=== PATIENT | male | born 1955 | race Caucasian/White ===

== ENCOUNTER 2020-12-31 17:23 | Observation (INO) | payer OTHER, SELFPAY ==
[2020-12-31 17:24] VITALS: BP 117/82; PULSE 107; RESP 16; TEMP 36.8; O2SAT 96
--- NOTE | 2020-12-31 17:40 | W.ED.GENAD ---
Discharge Plan Disposition Patient Disposition: [facility] INPATIENT Condition: Stable Discharge Details Clinical Impression: Suicidal ideation, Paranoid delusion, Anemia, iron deficiency, Pancytopenia Primary Care Provider: None,None ED Provider: Elena Barraza Medical Decision Making <Elena Barraza DO - Last Filed: 01/03/21 17:48> 12/31/20 1730 -- 65-year-old male with a history of paranoid schizophrenia presents per EMS for suicidal ideation. Per Kathy with mental health, pt is delusional and paranoid and endorsing SI and he is planning on EE due to his delusional behavior. He had a plan to jump out of a window or get shot by police. He was reported to be cooperative per EMS. Upon arrival, he is refusing initially to get into paper clothes but then agreeable. Ping Pong Table Assembler used wand at bedside and pt cleared. He appears disheveled but nontoxic. He is afebrile. Will check screening labs. Patient was also speaking very loudly and argumentative with staff at times. He was given 2 mg of Ativan p.o. which he took willingly. Labs reviewed. Hemoglobin 8.1. MCV low at 65. Remainder of labs unremarkable. UDS negative. Alcohol level minimal at 3. Patient denies any complaints of bleeding including hematuria, epistaxis or rectal bleeding. Guaiac was done at bedside and negative. EE paperwork completed. Patient has been quite talkative while here in the emergency department. He does remain cooperative. Plan is to hold in the ED at this time while awaiting placement. 01/01/21 1230 am -- Case endorsed to Dr. Belle to continue to monitor. 01/02/21 0800 -- Case endorsed to continue to monitor while awaiting placement. Review of iron studies note that patient is iron deficient. He has been started on iron supplements. He has been cooperative overnight and no acute complaints or issues. [facility]40 --patient was sleeping and rolled out of bed onto the floor as his left sided rail was down. He states he hit the back of his head and his ribs but denies any headache or rib pain. He was able to stand up from the floor on his own and ambulate without difficulty. No evidence of head trauma. No midline spinal tenderness. Chest and abdomen normal to inspection without tenderness. Moving all extremities w/o pain or deformity. He remains oriented at baseline and appears in no acute distress. He is requesting back. We will continue to monitor. 1729 --patient remains cooperative today. Received a call today from both care management and mental health that patient was accepted and there is a bed available at the [facility]. Shortly after this, heard from the mental health that the [facility] was unaware that patient was under EE status. The plan was to walk patient off the EE as he is willing to go to the [facility] but now the [facility] states that there is not an available bed for the patient and he will have to wait here till Monday. We will continue to hold on the EE at this time but pt remains willing and voluntarily planning to go to [facility]. 1829 --care huddle --attempted to admit patient to the floor as he has been here approximately 48 hours without incident. Patient is appropriate for floor at this time, unfortunately staffing is inadequate and patient will remain in the ED at this time. Can reassess tomorrow when staffing improved and patient can possibly be admitted to the floor then. 1999 --Case endorsed Dr. Dowd to continue to monitor overnight. 01/03/21 1600 -- staffing now adequate on the floor. Plan is for admission to the floor after 1729. 1739 -- Case discussed with hospitalist who accepts patient for admission. Notified of pancytopenia on labs. Patient remains willing and voluntary to [facility] to the [facility]. Plan is for pt to be walked off the EE tomorrow with possible transfer to the [facility]. They have medicine there who likely can address the pancytopenia or refer for outpatient workup. Patient has remained hemodynamically stable without any acute complaints. He has eaten meals and ambulated in no acute distress. Medical Records Medical records reviewed: Yes I reviewed the patient's medical records. <Douglas Suggs MD - Last Filed: 01/01/21 10:50> pt calm and cooperative here, still having delusions, eating breakfast without complaints. H/H stable hemoglobin this morning 7.8 from 8.1 and is microcytic so is likely iron deficiency, will remain in the ED as is involuntary. pt complaining his legs are restless and would like something for this, will order ativan and given decreased total iron and also increased total iron capacity will start him on iron supplements. <Pankaj Montenegro MD - Last Filed: 01/02/21 00:34> Care signed out by Dr. Suggs with plan to await second certification disposition. Second certification was performed. Patient will remain on EE. Patient was becoming more lively and seemed a bit anxious. I offered him some Ativan orally which he accepted. On reassessment he was calm and feeling better. [facility] [place] at approximately 8 PM and requested transfer. I spoke with the psychiatrist sergeant of corrections. He declined to accept the patient in transfer noting they did not have staffing resources and recommended calling back tomorrow morning. HPI <Elena Barraza DO - Last Filed: 01/03/21 17:48> General Mode of arrival: EMS. Date/Time Provider Initiated Documentation: 12/31/20 17:37. Limitations to Documentation: altered mental status. Information obtained by: patient and EMS. HPI Narrative: Patient is a 65-year-old male with a history of paranoid schizophrenia presents for suicidal ideation and paranoid delusions. For mental health, patient stated that he wanted to jump out of the window or become shot by a copy chaser in an attempt to kill himself. Patient agrees with this statement but did not state this to me. Patient states his name is not Ramone Meeks but will not tell me his name. He will also not seek his name to mental health. Mental health confirms that this is Ramone Meeks. Patient stated that his neighbors were on the other side of the wall and they can hear us. Patient denies any auditory visual hallucinations. He denies any homicidal ideation. He denies any acute medical complaints. He states he has been feeling depressed and requesting mental health several months but has not gotten any help and is not taking any medications. General Stated Complaint: PsychEval CARMITA: 2 Review of Systems <Elena Barraza DO - Last Filed: 01/03/21 17:48> All systems reviewed & are unremarkable except as noted in HPI and below Constitutional Constitutional: Reports as per HPI, Denies chills and Denies fever(s) Eyes Eyes: Denies blurry vision ENT Ears, Nose, Mouth, and Throat: Denies dizziness, Denies sore throat and Denies throat swelling Cardiovascular Cardiovascular: Denies chest pain and Denies dyspnea Respiratory Respiratory: Denies cough and Denies dyspnea Gastrointestinal Gastrointestinal: Denies abdominal pain, Denies diarrhea and Denies vomiting Genitourinary Genitourinary: Denies hematuria and Denies dysuria Musculoskeletal Musculoskeletal: Denies back pain and Denies numbness Integumentary/Breasts Skin/Breast: Denies lesions and Denies rash Neurologic Neurologic: Denies dizziness, Denies localized weakness and Denies numbness Psychiatric Psychiatric: Reports suicidal ideation Allergic/Immunologic Allergic/Immunologic: Denies throat swelling PFSH <Elena Barraza DO - Last Filed: 01/03/21 17:48> Medical History (Updated 01/03/21 @ 17:44 by Elena Barraza DO) Schizophrenia Social History Smoking risk assessment performed?: No Exam <Elena Barraza DO - Last Filed: 01/03/21 17:48> Const General: cooperative and disheveled Orientation: alert and awake HENMT Head: normal to inspection Face and sinus: normal facial exam Eyes General: appearance normal, both eyes and all related structures Pupils: PERRL EOM: EOM intact bilaterally Neck Neck: normal visual inspection and No submandibular swelling Lymphatic: no lymphadenopathy noted Chest Chest: normal inspection of the chest and no tenderness Resp Effort & Inspection: normal respiratory effort and able to speak in complete sentences Auscultation: clear to auscultation bilaterally Cardio Rate: regular rate Rhythm: regular rhythm GI Inspection: normal to inspection Palpation: soft, not firm, not rigid and nontender Auscultation: normal bowel sounds Skin General skin exam: no rashes or lesions noted Neuro General: patient alert, patient awake and patient oriented x3 Cognition: normal cognition Speech: speech normal Motor: muscle tone normal throughout Sensory Exam: no sensory deficits noted Extrem General: normal to inspection, full ROM, capillary refill normal, no calf tenderness bilaterally and no edema Psych Appearance: grossly normal Mental Status: mental status grossly normal Speech and Movement: speech and movement normal Affect: normal affect Course <Elena Barraza DO - Last Filed: 01/03/21 17:48> Vital Signs Vital signs: Vital Signs Temperature 98.2 F 12/31/20 17:24 Pulse 107 H 12/31/20 17:24 Respiratory Rate 16 12/31/20 17:24 Blood Pressure 117/82 12/31/20 17:24 Pulse Oximetry 96 12/31/20 17:24 Temperature 98.2 F 12/31/20 17:24 Temperature Source Oral 12/31/20 17:24 Pulse 107 H 12/31/20 17:24 Respiratory Rate 16 12/31/20 17:24 Respiratory Effort 12/31/20 17:24 Blood Pressure 117/82 12/31/20 17:24 Blood Pressure Position Sitting 12/31/20 17:24 Pulse Oximetry 96 12/31/20 17:24 Oxygen Delivery Method Room Air 12/31/20 17:24 Oxygen Flow Rate 0 12/31/20 17:24 Sign Out <Elena Barraza DO - Last Filed: 01/03/21 17:48> Sign Out Data: Sign Out Comment: Patient is suicidal with a plan. He also has paranoid delusions. He has been cooperative. EE paperwork completed as he has been impulsive at times and not reliable with some parts of history. Holding in the ED while awaiting placement at this time. Last updated by Elena Barraza DO at 12/31/20 23:34 Sign Out Comment: No issues overnight, slept after receiving Zyprexa. Remains on involuntary admission pending placement. Last updated by Ramone Belle MD at 01/01/21 07:32 Sign Out Comment: EE for suicidal and paranoid delusions. Last updated by Douglas Suggs MD at 01/01/21 09:02 Sign Out Comment: Awaiting psych placement EE. Plan to call [facility] in [place] again in the morning. Last updated by Pankaj Montenegro MD at 01/01/21 22:59 Sign Out Comment: Still awaiting placement, hopefully they can take. No issues overnight and slept. Last updated by Ramone Belle MD at 01/02/21 07:47 Sign Out Comment: Patient has continued to be cooperative. [facility] but not until [facility]. Attempted to admit to the floor after the 48-hour qi today but staffing upstairs inadequate. Can consider admission to the floor tomorrow after staffing improved. Last updated by Elena Barraza DO at 01/02/21 20:01 Sign Out Comment: Patient has remained cooperative, expecting [facility]. Patient slept well throughout the night with a small dose of Ativan and Benadryl to help him relax. No issues. Last updated by Idris Dowd DO at 01/03/21 04:20
[2020-12-31 18:31] LABS: *AMPHETAMINES SCREEN URINE Negative (Negative); *BARBITURATES SCREEN URINE Negative (Negative); *BENZODIAZEPINES SCREEN URINE Negative (Negative); Cannabinoids THC Negative (Negative); Cocaine Screen,Urine Negative (Negative); METHADONE URINE SCREEN Negative (Negative); OPIATES URINE SCREEN Negative (Negative); Tricyclic Antidepressants Negative (Negative)
--- NOTE | 2020-12-31 18:33 | CMSP_ITS ---
- If Service Date Differs Date of service: 12/31/20 Time of Service: 18:33 Care Management Safety Plan Status: Involuntary INVOLUNTARY FOR INPATIENT PSYCHIATRIC STABILIZATION. Chief Complaint: Ramone is a 65 year old male who presents in the ED for suicida l ideation, delusions and paranoia. ED staff report Kathy from [facility] is in the process of completing EE paperwork on Ramone, but this has yet to happen. A huddle will be held and the safety plan will be revised as needed once EE paperwork has been completed and filed. Safety plan has been established to meet the needs of the patient, and consideration of the care team, to adhere to patient goals, identify restrictions based on behavioral status, address nutrition, and determine allowed personal belongings, tools for hygiene and personal care. Determine level of activity including ambulation, level of supervision, visitors, and determine privileges based on behaviors and level of engagement by pt. SAFETY PLAN: 1. Will remain on SI/HI precautions. In Paper Clothes 2. Will remain in room under direct supervision of one-on-one staff at all times provided by CPSO, GAUGE CONTROLLER, FACILITY MANAGER HISTOLOGY ludlow machine operator. 3. May have paper cups, plates, finger foods as well as a cardboard spoon with which to eat meals. 4. Follow [facility] Management of the Admitted Behavioral Health Patient policy. 5. Comfort bath system only. 6. No personal belongings 7. Visitors: None at this time. 8. Activities: Coloring book, crayons, and other activities at RN discretion. 9. Bathroom privileges with escort. 10. Phone: Use of hospital phone at RN discretion. 11. Due to INVOLUNTARY status, patient is being held at [facility] by the Department of Mental Health ([facility]) until 2nd certification by [facility] Psychiatrist can be performed (within 24 hours). Staff will provide de-escalation support (CPI) as needed. If patient wishes to leave [facility], staff will contact [facility] Crisis Screener ([phone]) and [employer] ([phone]) as soon as possible. In the event of elopement, notify [facility] Police ([phone]). Patient is currently involuntarily at [facility]. [facility] Frontline Coin Purse Assembler will continue seeking placement. Please contact the Ball Racker [employer] ([phone]) for any needed changes to Safety Plan. Safety plan has been provided to interdepartmental care team. Patient will be transported by advertising teacher at time of discharge.
--- NOTE | 2020-12-31 18:33 | PDOC.CMSAFED ---
- If Service Date Differs Date of service: 12/31/20 Time of Service: 18:33 Care Management Safety Plan Status: Involuntary INVOLUNTARY FOR INPATIENT PSYCHIATRIC STABILIZATION. Chief Complaint: Ramone is a 65 year old male who presents in the ED for suicidal ideation, delusions and paranoia. ED staff report Kathy from [facility] is in the process of completing EE paperwork on Ramone, but this has yet to happen. A huddle will be held and the safety plan will be revised as needed once EE paperwork has been completed and filed. Safety plan has been established to meet the needs of the patient, and consideration of the care team, to adhere to patient goals, identify restrictions based on behavioral status, address nutrition, and determine allowed personal belongings, tools for hygiene and personal care. Determine level of activity including ambulation, level of supervision, visitors, and determine privileges based on behaviors and level of engagement by pt. SAFETY PLAN: 1. Will remain on SI/HI precautions. In Paper Clothes 2. Will remain in room under direct supervision of one-on-one staff at all times provided by CPSO, SHIP WORKER, MANAGER PRODUCT MANAGEMENT manufacturing coordinator. 3. May have paper cups, plates, finger foods as well as a cardboard spoon with which to eat meals. 4. Follow [facility] Management of the Admitted Behavioral Health Patient policy. 5. Comfort bath system only. 6. No personal belongings 7. Visitors: None at this time. 8. Activities: Coloring book, crayons, and other activities at RN discretion. 9. Bathroom privileges with escort. 10. Phone: Use of hospital phone at RN discretion. 11. Due to INVOLUNTARY status, patient is being held at [facility] by the Department of Mental Health ([facility]) until 2nd certification by [facility] Psychiatrist can be performed (within 24 hours). Staff will provide de-escalation support (CPI) as needed. If patient wishes to leave [facility], staff will contact [facility] Crisis Screener ([phone]) and On-Call Road Freight Conductor ([phone]) as soon as possible. In the event of elopement, notify [employer] Police ([phone]). Patient is currently involuntarily at [facility]. [facility] Frontline Clinical Assistant Professor will continue seeking placement. Please contact the Field Nurse Road Freight Conductor ([phone]) for any needed changes to Safety Plan. Safety plan has been provided to interdepartmental care team. Patient will be transported by [facility] at time of discharge.
[2020-12-31 18:42] LABS: Abs Immature Grans 0.01 10^3/uL (0.0-0.06); Absolute Basophil Count 0.03 10^3/uL (0.0-0.2); Absolute Eosinophil Count 0.04 10^3/uL (0.0-0.7); Absolute Lymphocyte Count 0.72 10^3/uL (1.2-3.4); Absolute Monocyte Count 0.56 10^3/uL (0.1-0.8); Absolute Neutrophil Count 3.13 10^3/uL (1.2-6.7); Basophils % 0.7; Eosinophils % 0.9; HCT 31.5 % (40.0-50.0); Immature Grans % 0.2; MCH 16.8 pg (27.0-33.0); MCHC 25.7 % (32.0-36.0); MPV 8.7 fL (8.0-11.0); Monocytes % 12.5; Neutrophils % 69.7; Nucleated RBC 0 %; RBC 4.82 10^6/uL (4.36-5.78); RDW 20.8 % (11.8-14.1); WBC 4.49 10^3/uL (4.4-10.8)
[2020-12-31 18:57] LABS: ALT 36 U/L (16-63); AST 26 U/L (15-37); Albumin 3.8 g/dL (3.4-5.0); Alkaline Phosphatase 134 U/L (46-116); Anion Gap 7.4 mmol/L (3-11); BUN 27 mg/dL (7-18); Bilirubin, Total 0.7 mg/dL (0.2-1.0); CO2 25.6 mmol/L (21.0-32.0); CREATININE 0.8 mg/dL (0.70-1.30); Calcium 8.8 mg/dL (8.5-10.1); Chloride 104 mmol/L (98-107); ETHANOL BLOOD 3.7 mg/dL (<3); Glucose 126 mg/dL (74-106); Potassium 4.2 mmol/L (3.5-5.1); Sodium 137 mmol/L (136-145); Total Protein 8.1 g/dL (6.4-8.2)
[2020-12-31 19:01] LABS: HGB 8.1 g/dL (13.5-17.5)
[2020-12-31 19:02] LABS: MCV 65.4 fL (80-95)
[2020-12-31 19:08] LABS: Anisocytosis 2+; Diff Comment RBC Morph Reviewed; Hypochromasia 2+; Microcytosis 2+; Platelet Count 136 10^3/uL (130-400); Polychromasia Present
[2020-12-31] MEDS: LORazepam 1 MG TAB 2 MG PO (19:52)
--- NOTE | 2020-12-31 22:39 | PDOC.MHCN ---
Date of service: 12/31/20 Time of Service: 18:40 Mental Health Crisis Note Presenting Issue How did you arrive at the ED and why did you come: Maya was seen at his apt. Clt asked PD to shot and kill him. Clt appeared position himself as if he was planning on jumping out his window, which was about a 20 ft drop. PD curtailed the individual from acting on this urge. Precipitating Factors The clt was willing to go to the hospital where he was placed on EE status because of suicide ideation. Tristent has also throwing large items out of his apt regardless if there were any passersby thereby jeopardizing others. Disposition BEHAVIOR: Erratic EYE CONTACT: Eye contact good MOOD: Labile AFFECT: Guard at times APPETITE: Good SLEEP(trouble falling/staying asleep: Poor Plan The clt is under EE status. The clt living situation shows severe self-neglect. Clt's actions of asking PD to shot and kill him, will keep him under EE status till his 2nd certification.
[2020-12-31] MEDS: OLANZapine 10 MG TAB PO (23:52)
[2020-12-31] MEDS: LORazepam 1 MG TAB PO (23:52)
[2020-12-31 23:57] LABS: Source Nasal/Nares
[2021-01-01 08:22] VITALS: BP 99/65; PULSE 74; RESP 18; TEMP 36.4; O2SAT 97
[2021-01-01 08:22] LABS: HCT 30.2 % (40.0-50.0); HGB 7.8 g/dL (13.5-17.5); MCH 16.8 pg (27.0-33.0); MCHC 25.8 % (32.0-36.0); MCV 65.2 fL (80-95); MPV 8.3 fL (8.0-11.0); RDW 20.7 % (11.8-14.1); RDW-SD 47.8 fL; WBC 2.52 10^3/uL (4.4-10.8)
[2021-01-01 08:47] LABS: Platelet Count 112 10^3/uL (130-400)
[2021-01-01 08:50] LABS: RBC 4.63 10^6/uL (4.36-5.78)
[2021-01-01 09:45] LABS: Iron 21 ug/dL (65-175); Total Iron Binding Capacity 537 ug/dL (250-450)
[2021-01-01 09:58] LABS: COVID-19 PCR Negative (Negative)
[2021-01-01 10:00] LABS: Ferritin 8 ng/mL (26-388)
--- NOTE | 2021-01-01 10:05 | PDOC.CMSAFED ---
- If Service Date Differs Date of service: 11/01/20 Time of Service: 11:00 Care Management Safety Plan Status: Involuntary - Reason for Wait Reason for Wait: Inpatient Admission INVOLUNTARY FOR INPATIENT PSYCHIATRIC STABILIZATION. Chief Complaint: Ramone is a 65 year old male who presents in the ED for suicidal ideation, delusions and paranoia. ED staff report Kathy from [facility] is in the process of completing EE paperwork on Ramone, but this has yet to happen. A huddle will be held and the safety plan will be revised as needed once EE paperwork has been completed and filed. Safety plan has been established to meet the needs of the patient, and consideration of the care team, to adhere to patient goals, identify restrictions based on behavioral status, address nutrition, and determine allowed personal belongings, tools for hygiene and personal care. Determine level of activity including ambulation, level of supervision, visitors, and determine privileges based on behaviors and level of engagement by pt. SAFETY PLAN: 1. Will remain on SI/HI precautions. In Paper Clothes 2. Will remain in room under direct supervision of one-on-one staff at all times provided by CPSO, HELMET HAT SWEATBAND PUNCHER, SAW OPERATOR magazine worker. 3. May have paper cups, plates, finger foods as well as a cardboard spoon with which to eat meals. 4. Follow [facility] Management of the Admitted Behavioral Health Patient policy. 5. Comfort bath system only. 6. No personal belongings 7. Visitors: None at this time. 8. Activities: Coloring book, crayons, Bible and plastic magnifying glass permitted, other activities at RN discretion. 9. Bathroom privileges with escort. 10. Phone: Use of hospital phone at RN discretion. 11. Due to INVOLUNTARY status, patient is being held at [facility] by the Department of Mental Health ([facility]) until 2nd certification by [facility] Psychiatrist can be performed (within 24 hours). Staff will provide de-escalation support (CPI) as needed. If patient wishes to leave [facility], staff will contact [facility] Crisis Screener ([phone]) and On-Call Client Delivery Manager ([phone]) as soon as possible. In the event of elopement, notify [facility] Police ([phone]). Patient is currently involuntarily at [facility]. [facility] Frontline Bill Adjuster will continue seeking placement. Please contact the Skip Tender Client Delivery Manager ([phone]) for any needed changes to Safety Plan. Safety plan has been provided to interdepartmental care team. Patient will be transported by powder blender at time of discharge.
[2021-01-01] MEDS: LORazepam 1 MG TAB 2 MG PO ×2 (10:55→18:11)
[2021-01-01 15:21] LABS: INR 1.1 (0.9-1.1); PTT Activated 21.4 sec (21.0-27.5); Prothrombin Time 10.8 sec (9.3-11.0)
[2021-01-01 15:47] LABS: FREE T4 0.79 ng/dL (0.76-1.46)
--- NOTE | 2021-01-01 18:48 | PDOC.MHCN_ITS ---
Date of service: 01/01/21 Time of Service: 18:49 Mental Health Crisis Note Presenting Issue How did you arrive at the ED and why did you come: Pt arrived on 12.31.2020 via [facility] ambulance after he was observed throwing items out his window including tools and his guitar and then leaned out his window yelling at police telling them to shoot him. Precipitating Factors Pt would not answer if he was SI or HI when asked by Dr. John. Disposition BEHAVIOR: Pt is quiet when we first entered the room for his 2nd certification and he salutes the computer screen toward the doctor. Pt then states what do you think? He denied that the doctor was giving him any medications lately. Pt stated that his mind hurts. EYE CONTACT: Eye contact varies. MOOD: Mood is inconsistent and labile. AFFECT: Affect is also labile, one minute talking and laughing the next tearful and the next moderately angry. APPETITE: Pt is reported to be eating. SLEEP(trouble falling/staying asleep: Pt is reported to not be sleeping well. Plan Dr. John certified the second certification. As a result of the Pt's recent and continuing behaviors, concerns that he poses a risk to himself as well as others and the Dr. John's observations, he will reaming at [facility] pending admission to a psychiatric facility. He will be assessed twice daily and placement will besought daily. Signature Clinician's Name/Title: Maria Victoria Huynh MS, [facility] Emergency Services Clinician, [facility]
--- NOTE | 2021-01-02 10:09 | NUR.NOTE ---
Nursing Note: 0945: CPSO stated patient fell. In to assess patient with MD Barraza and patient stated he had a cramp on his left side and rolled out of be. Was found on the floor supine and able to get up independently and back into the stretcher. A/O x3 assessment WNL. Did states he hit the back of his head and his left upper lateral thoracic area. Denied LOC, headache or N/V. States to have chronic neck pain that is not worsened after fall. Currently eating breakfast and is joking with staff. Very talkative and interactive. Continue to monitor.
[2021-01-02 10:20] VITALS: BP 117/76; PULSE 85; RESP 20; TEMP 36.7; O2SAT 97
[2021-01-02] MEDS: Ferrous Sulfate 325 MG TAB PO (10:27)
--- NOTE | 2021-01-02 11:13 | CMSP_ITS ---
- If Service Date Differs Date of service: 01/02/21 Time of Service: 11:13 Care Management Safety Plan Status: Involuntary INVOLUNTARY FOR INPATIENT PSYCHIATRIC STABILIZATION. Chief Complaint: Ramone is a 65 year old male who presents in the ED for suicidal ideation, delusions and paranoia. ED staff report Kathy from [facility] is in the process of completing EE paperwork on Ramone, but this has yet to happen. A huddle will be held and the safety plan will be revised as needed once EE paperwork has been completed and filed. Safety plan has been established to meet the needs of the patient, and consideration of the care team, to adhere to patient goals, identify restrictions based on behavioral status, address nutrition, and determine allowed personal belongings, tools for hygiene and personal care. Determine level of activity including ambulation, level of supervision, visitors, and determine privileges based on behaviors and level of engagement by pt. SAFETY PLAN: 1. Will remain on SI/HI precautions. In Paper Clothes 2. Will remain in room under direct supervision of one-on-one staff at all times provided by CPSO, ASSISTANT PROGRAM MANAGER, RN PROGRESSIVE CARE UNIT astronomy instructor. 3. May have paper cups, plates, finger foods as well as plastic fork and spoon, with which to eat meals, supervised by CPSO. Fork and spoon to be removed from room after each meal. 4. Follow [facility] Management of the Admitted Behavioral Health Patient policy. 5. Comfort bath system, may shower if escorted by CPSO and security. 6. No personal belongings 7. Visitors: None at this time. 8. Activities: Coloring book, crayons, Bible and plastic magnifying glass permitted, other activities at RN discretion. 9. Bathroom privileges with escort. 10. Phone: Use of hospital phone at RN discretion. 11. Due to INVOLUNTARY status, patient is being held at [facility] by the Department of Mental Health ([facility]) until 2nd certification by [facility] Psychiatrist can be performed (within 24 hours). Staff will provide de-escalation support (CPI) as needed. If patient wishes to leave [facility], staff will contact [facility] Crisis Screener ([phone]) and On-Call Security Sales Manager ([phone]) as soon as possible. In the event of elopement, notify [facility] Police ([phone]). Patient is currently involuntarily at [facility]. [facility] Frontline Web Services Architect will continue seeking placement. Please contact the Technical Manager Chemical Plant Security Sales Manager ([phone]) for any needed changes to Safety Plan. Safety plan has been provided to interdepartmental care team. Patient will be transported by advertising internship at time of discharge.
[2021-01-02] MEDS: LORazepam 1 MG TAB PO ×2 (12:05→19:35)
[2021-01-02] MEDS: OLANZapine 10 MG TAB PO (12:05)
--- NOTE | 2021-01-02 17:39 | CMPROGNOTE_ITS ---
- If Service Date Differs Date of service: 01/02/21 Time of Service: 17:39 Care Management Progress Note S/O: Ramone had a second certification last night, which was upheld by a psychiatrist at [facility]. [facility]. This morning, CM was contacted by [facility] who stated that the [facility] will not accept him as he is involuntary. [facility] called the [place] to discuss this with their admissions department. [facility] also discussed the plan with Ramone, who is agreeable to [facility] to the [facility]. The [facility] reported that they will accept him, if he is voluntary, but not until Monday. CM discussed this with the provider as well as the RN computer analyst supervisor. He will remain at [facility] until Monday, when [facility] will contact the [facility] to set up transport. CM will continue to follow. A: Ramone is a 65 year old male admitted to [facility] on 12/31/20 with SI, schizophrenia, psychosis. P: Ramone will remain at [facility] on Involuntary hold, determined by [facility]. Once a bed becomes available at an inpatient psychiatric facility, he will be transported by , coordinated by [facility]. [facility] at the [facility] on Monday, per report. CM will continue to support pt and staff.
--- NOTE | 2021-01-02 17:39 | PDOC.ERCMPRO ---
- If Service Date Differs Date of service: 01/02/21 Time of Service: 17:39 Care Management Progress Note S/O: Ramone had a second certification last night, which was upheld by a psychiatrist at [facility]. attempted to have [facility] to the [facility] after the [facility] cert, without success. This morning, CM was contacted by [facility] who stated that the [facility] will not accept him as he is involuntary. [facility] called the [facility] to discuss this with their admissions department. [facility] also discussed the plan with Ramone, who is agreeable to going to the [facility]. The [facility] reported that they will accept him, if he is voluntary, but not until Monday. CM discussed this with the provider as well as the RN small appliance assembly supervisor. He will remain at [facility] until Monday, when [facility] will contact the VA to set up transport. CM will continue to follow. A: Ramone is a 65 year old male admitted to [facility] on 12/31/20 with SI, schizophrenia, psychosis. P: Ramone will remain at [facility] on Involuntary hold, determined by [facility]. Once a bed becomes available at an inpatient psychiatric facility, he will be transported by , coordinated by [facility]. [facility] the [facility] on Monday, per report. CM will continue to support pt and staff.
--- NOTE | 2021-01-02 21:14 | PDOC.MHCN_ITS ---
Date of service: 01/02/21 Time of Service: 19:15 Mental Health Crisis Note Presenting Issue How did you arrive at the ED and why did you come: Client is currently on EE status awaiting placement. Precipitating Factors Client reports no SI or HI. Disposition BEHAVIOR: Client is polite and receptive when speaking with this wirter. EYE CONTACT: Client makes eye contact throughout the assessment. MOOD: Client is tearful throughout the assessment. AFFECT: Clients affect is normal. APPETITE: Client reports that he is eating like a moose SLEEP(trouble falling/staying asleep: Client reports that he is sleeping well. Plan Client will remain on EE status at [facility] until placement is found. Hospitals were called today with no availability. Signature Clinician's Name/Title: Lavinia Lobo [facility] Emergency Clinician
[2021-01-02] MEDS: diphenhydrAMINE 25 MG CAP PO (23:04)
[2021-01-03] MEDS: LORazepam 1 MG TAB PO ×3 (00:39→20:36)
[2021-01-03] MEDS: Ferrous Sulfate 325 MG TAB PO (08:20)
[2021-01-03 08:27] VITALS: BP 97/64; PULSE 86; RESP 18; TEMP 36.7; O2SAT 97
[2021-01-03] MEDS: OLANZapine 10 MG TAB PO (09:08)
--- NOTE | 2021-01-03 15:23 | CMSP_ITS ---
- If Service Date Differs Date of service: 01/03/21 Time of Service: 15:23 Care Management Safety Plan Status: Involuntary INVOLUNTARY FOR INPATIENT PSYCHIATRIC STABILIZATION. Chief Complaint: Ramone is a 65 year old male who presents in the ED for suicidal ideation, delusions and paranoia. ED staff report Kathy from [facility] is in the process of completing EE paperwork on Ramone, but this has yet to happen. A huddle will be held and the safety plan will be revised as needed once EE paperwork has been completed and filed. Safety plan has been established to meet the needs of the patient, and consideration of the care team, to adhere to patient goals, identify restrictions based on behavioral status, address nutrition, and determine allowed personal belongings, tools for hygiene and personal care. Determine level of activity including ambulation, level of supervision, visitors, and determine privileges based on behaviors and level of engagement by pt. SAFETY PLAN: 1. Will remain on SI/HI precautions. In Paper Clothes 2. Will remain in room under direct supervision of one-on-one staff at all times provided by CPSO, HOME HEALTH CARE PROVIDER, SYNCHRONOUS MOTOR ASSEMBLER header set up operator. CPSO to be in the room with Ramone while he is awake on M/S, at RN discretion. 3. May have paper cups, plates, finger foods as well as plastic fork and spoon, with which to eat meals, supervised by CPSO. Fork and spoon to be removed from room after each meal. 4. Follow [facility] Management of the Admitted Behavioral Health Patient policy. 5. Comfort bath system, may shower if escorted by CPSO. 6. No personal belongings 7. Visitors: None at this time. 8. Activities: Coloring book, crayons, Bible and plastic magnifying glass permitted, other activities at RN discretion. 9. Bathroom privileges without limitation on M/S. 10. Phone: Use of hospital phone at RN discretion. 11. Due to INVOLUNTARY status, patient is being held at [facility] by the Department of Mental Health ([facility]) until 2nd certification by [facility] Psychiatrist can be perf ormed (within 24 hours). Staff will provide de-escalation support (CPI) as needed. If patient wishes to leave [facility], staff will contact [facility] Crisis Screener ([phone]) and On-Call Control Clerk Subassembly ([phone]) as soon as possible. In the event of elopement, notify [facility] Police ([phone]). Patient is currently involuntarily at [facility]. [facility] Frontline Quality Checker will continue seeking placement. Please contact the Dispatcher Chief Oil Control Clerk Subassembly ([phone]) for any needed changes to Safety Plan. Safety plan has been provided to interdepartmental care team. Patient will be transported by master deputy sheriff court security at time of discharge.
--- NOTE | 2021-01-03 15:25 | CMPROGNOTE_ITS ---
- If Service Date Differs Date of service: 01/03/21 Time of Service: 15:25 Care Management Progress Note S/O: Ramone was escorted to the shower this afternoon, and smiled and waved at while walking in the halls. Ramone will be moved to the transition area of the M/S floor today, as he has been cooperative in the ED with no code hardeep. Per JONNY Catherine, he has a tentative bed offer at the [facility] for tomorrow, but they will have to call in the morning to verify that admission prior to setting up transport. CM will continue to follow. A: Ramone is a 65 year old male admitted to [facility] on 12/31/20 with SI, schizophrenia, psychosis. P: Ramone will remain at [facility] on Involuntary hold, determined by [facility]. Once a bed becomes available at an inpatient psychiatric facility, he will be transported by , coordinated by [facility]. He may have a bed at the [facility] on Monday, per report. will continue to support pt and staff.
[2021-01-03] MEDS: Ibuprofen 600 MG TAB PO (16:16)
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
[2021-01-03 21:22] VITALS: BP 111/76; PULSE 86; RESP 20; TEMP 36.2; O2SAT 100
[2021-01-03] MEDS: traZODone 50 MG TAB PO (22:31)
[2021-01-03] MEDS: Zolpidem 5 MG TAB PO (23:05)
[2021-01-04 06:39] LABS: Abs Immature Grans 0.01 10^3/uL (0.0-0.06); Absolute Basophil Count 0.02 10^3/uL (0.0-0.2); Absolute Eosinophil Count 0.06 10^3/uL (0.0-0.7); Absolute Lymphocyte Count 1.07 10^3/uL (1.2-3.4); Absolute Monocyte Count 0.49 10^3/uL (0.1-0.8); Absolute Neutrophil Count 1.55 10^3/uL (1.2-6.7); Basophils % 0.6; Eosinophils % 1.9; HGB 7.5 g/dL (13.5-17.5); Immature Grans % 0.3; Lymphocytes % 33.4; MCH 17.1 pg (27.0-33.0); MCHC 25.9 % (32.0-36.0); MCV 66.1 fL (80-95); MPV 8.5 fL (8.0-11.0); Monocytes % 15.3; Neutrophils % 48.5; Nucleated RBC 0 %; Platelet Count 128 10^3/uL (130-400); RBC 4.39 10^6/uL (4.36-5.78); RDW 21.3 % (11.8-14.1); RDW-SD 48.9 fL
[2021-01-04 06:48] LABS: Reticulocyte 2.6 % (0.5-2.4)
[2021-01-04] MEDS: Levothyroxine 25 MCG TAB PO (06:55)
--- NOTE | 2021-01-04 07:14 | PDOC.MHCN_ITS ---
Date of service: 01/03/21 Time of Service: 17:21 Mental Health Crisis Note Presenting Issue How did you arrive at the ED and why did you come: Client is currently on EE status awaiting placement. [facility]. Precipitating Factors Client reports no SI or HI. Disposition BEHAVIOR: Client is receptive when speaking to this automobile and property underwriter. EYE CONTACT: Client makes eye contact throughout the assessment. MOOD: Clients mood is happy. AFFECT: Clients affect is normal APPETITE: Clients reports a good appetite. SLEEP(trouble falling/staying asleep: Client reports good sleep. Plan Client will continue to be on EE status awaiting placement. [facility] will [facility]. Signature Clinician's Name/Title: Lavinia Lobo [facility] Emergency Clinician
[2021-01-04] MEDS: Benztropine 1 MG TAB PO ×2 (09:21→20:58)
[2021-01-04] MEDS: OLANZapine 10 MG TAB PO (09:21)
[2021-01-04] MEDS: Clopidogrel 75 MG TAB PO (09:21)
[2021-01-04] MEDS: Ferrous Sulfate 325 MG TAB PO (09:21)
[2021-01-04 12:18] LABS: Source Nasal/Nares
[2021-01-04 13:03] LABS: COVID-19 PCR Negative (Negative)
[2021-01-04] MEDS: OLANZapine 5 MG TAB PO (13:47)
--- NOTE | 2021-01-04 15:14 | PGE_ITS ---
Date of Service Date of service: 01/04/21 Time of Service: 15:17 Assessment and Plan Assessment and plan (1) Suicidal ideation: Start date: 01/04/21 Start time: 15:29 Status: Acute Assessment and plan: Calm, NO thoughts of SI/HI (2) Anemia, iron deficiency: Start date: 01/04/21 Start time: 15:32 Status: Acute Assessment and plan: He was started on iron in the emergency department. Follow [facility] (3) Paranoid delusion: Status: Acute Assessment and plan: Increase zyprexa up to 15 mg per psychiatry (4) Hypothyroidism: Status: Chronic Assessment and plan: His TSH is elevated with a low free T4. started on a low dose of levothyroxine. above case discussed with Dr. Edmond Subjective Subjective Patient reports: no new complaints Interval history since last seen: No complaints of SI or HI. Would like to take a shower. Spoke with Psychiatry from [place]. Recommends increasing zyprexa to 15 mg. At this time the [place] would like to build a raport with the patient they are working on trying to get the patient in the [facility] psychiatry facility but he will follow daily at this point. Exam Narrative Exam Narrative: He is in no distress. sleeping no thoughts of SI or HI Const Orientation: alert and awake Limitations: no language barrier HENMT Head: normal to inspection Mouth: oral mucosae normal Eyes Sclera: scleral abnormality (Pale bilaterally) Neck Neck: normal visual inspection Thyroid: thyroid normal Lymphatic: no lymphadenopathy noted Resp Effort & Inspection: normal respiratory effort, no nasal flaring and no stridor Auscultation: clear to auscultation bilaterally, no rales and no rhonchi Cardio Rate: regular rate Heart Sounds: S1 normal, S2 normal, no gallops, no murmurs and no rubs GI Inspection: normal to inspection and non-distended Palpation: soft and no hepatosplenomegaly Skin General skin exam: turgor normal, no jaundice and pallor Psych Speech and Movement: not agitated and speech not slurred Attitude: refuses to answer Thought Process: flight of ideas and tangential Objective Last Vital Signs Temp 36.2 C L 01/03/21 21:22 Pulse 86 01/03/21 21:22 Resp 20 01/03/21 21:22 BP 111/76 01/03/21 21:22 Pulse Ox 100 01/03/21 21:22 Laboratory Results - last 24 hr 12/31/20 01/03/21 01/04/21 18:35 19:02 06:20 WBC 3.20 L RBC 4.39 Hgb 7.5 L Hct 29.0 L MCV 66.1 L MCH 17.1 L MCHC 25.9 L RDW 21.3 H Plt Count 128 L MPV 8.5 Reticulocyte % (Auto) Immature Gran % 0.3 Neutrophils % 48.5 Lymphocytes % 33.4 Monocytes % 15.3 Eosinophils % 1.9 Basophils % 0.6 Nucleated RBC % 0 Absolute Neutrophils 1.55 Absolute Lymphocytes 1.07 L Absolute Monocytes 0.49 Absolute Eosinophils 0.06 Absolute Basophils 0.02 COVID-19 Source SARS-CoV-2 (PCR) Cancelled Nasopharyn COVID-19 PCR Cancelled Path Cons Comment See comment Ref Test Perform Site Cancelled 01/04/21 01/04/21 06:20 12:12 WBC RBC Hgb Hct MCV MCH MCHC RDW Plt Count MPV Reticulocyte % (Auto) 2.6 H Immature Gran % Neutrophils % Lymphocytes % Monocytes % Eosinophils % Basophils % Nucleated RBC % Absolute Neutrophils Absolute Lymphocytes Absolute Monocytes Absolute Eosinophils Absolute Basophils COVID-19 Source Nasal/nares SARS-CoV-2 (PCR) Negative Nasopharyn COVID-19 PCR Path Cons Comment Ref Test Perform Site
[2021-01-04 15:49] VITALS: BP 105/74; PULSE 104; RESP 17; TEMP 37.3; O2SAT 98
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
--- NOTE | 2021-01-04 17:03 | CMSP_ITS ---
"- If Service Date Differs Date of service: 01/04/21 Time of Service: 17:03 Care Management Safety Plan Status: Involuntary INVOLUNTARY FOR INPATIENT PSYCHIATRIC STABILIZATION. Safety plan has been established to meet the needs of the patient, and consideration of the care team, to adhere to patient goals, identify restrictions based on behavioral status, address nutrition, and determine allowed personal belongings, tools for hygiene and personal care. Determine level of activity including ambulation, level of supervision, visitors, and determine privileges based on behaviors and level of engagement by pt. SAFETY PLAN: 1. Will remain on SI/HI precautions. In Paper Clothes 2. Will remain in room under direct supervision of one-on-one staff at all times provided by CPSO, SMOKING PIPE LINER, LOAN EXPEDITOR engraver ornamental design. CPSO to be in the room with Ramone while he is awake on M/S, at RN discretion. 3. May have paper cups, plates, finger foods as well as plastic fork and spoon, with which to eat meals, supervised by CPSO. Fork and spoon to be removed from room after each meal. 4. Follow [facility] Management of the Admitted Behavioral Health Patient policy. 5. Comfort bath system, may shower if escorted by CPSO, at RN discretion. 6. No personal belongings 7. Visitors: None at this time. 8. Activities: Coloring book, crayons, Bible and plastic magnifying glass permitted, other activities at RN discretion. 9. Bathroom privileges without limitation on M/S. 10. Phone: Use of hospital phone at RN discretion. 11. Due to INVOLUNTARY status, patient is being held at [facility] by the Department of Mental Health ([facility]). The 2nd certification by [facility] Psychiatrist has occurred and Ramone was found to be a person in need of involuntary treatment. Staff will provide de-escalation support (CPI) as needed. If patient wishes to leave [facility], staff will contact [facility] Crisis Screener ([phone]) and On-Call Liquid Loader ([phone]) as soon as possible. In the event of elopement, notify [place] [employer] [facility] Police ([phone]). Patient is currently involuntarily at [facility]. [facility] Frontline Planning Director will continue seeking placement. Please contact the Statement Clerks Supervisor Liquid Loader ([phone]) for any needed changes to Safety Plan. Safety plan has been provided to interdepartmental care team. Patient will be transported by [facility] at time of discharge."
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
[2021-01-04] MEDS: Enoxaparin 40 MG/0.4 ML SYR SC (18:28)
[2021-01-04] MEDS: traZODone 50 MG TAB PO (20:58)
[2021-01-04] MEDS: Acetaminophen 325 MG TAB 650 MG PO (21:40)
[2021-01-04 22:45] VITALS: BP 103/64; PULSE 95; RESP 24; TEMP 36.7; O2SAT 98
[2021-01-04] MEDS: Zolpidem 5 MG TAB PO (22:50)
[2021-01-05 07:50] VITALS: BP 93/64; PULSE 89; RESP 16; TEMP 36.2; O2SAT 99
[2021-01-05] MEDS: Benztropine 1 MG TAB PO ×2 (08:09→20:16)
[2021-01-05] MEDS: Clopidogrel 75 MG TAB PO (08:09)
[2021-01-05] MEDS: OLANZapine 10 MG TAB 15 MG PO (08:09)
[2021-01-05] MEDS: Levothyroxine 25 MCG TAB PO (08:09)
[2021-01-05] MEDS: Ferrous Sulfate 325 MG TAB PO (08:09)
[2021-01-05 08:19] LABS: HCT 29.4 % (40.0-50.0)
--- NOTE | 2021-01-05 08:42 | CMSP_ITS ---
- If Service Date Differs Date of service: 01/05/21 Time of Service: 08:42 Care Management Safety Plan Status: Involuntary INVOLUNTARY FOR INPATIENT PSYCHIATRIC STABILIZATION. Safety plan has been established to meet the needs of the patient, and consideration of the care team, to adhere to patient goals, identify restrictions based on behavioral status, address nutrition, and determine allowed personal belongings, tools for hygiene and personal care. Determine level of activity including ambulation, level of supervision, visitors, and determine privileges based on behaviors and level of engagement by pt. SAFETY PLAN: 1. Will remain on SI/HI precautions. In Paper Clothes 2. Will remain in room under direct supervision of one-on-one staff at all times provided by CPSO, PULPER TENDER, SPEARER licensed embalmer supervisor. CPSO to be in the room with Ramone while he is awake on M/S, at RN discretion. 3. May have paper cups, plates, finger foods as well as plastic fork and spoon, with which to eat meals, supervised by CPSO. Fork and spoon to be removed from room after each meal. 4. Follow [facility] Management of the Admitted Behavioral Health Patient policy. 5. Comfort bath system, may shower if escorted by CPSO, at RN discretion. 6. No personal belongings 7. Visitors: None at this time. 8. Activities: Coloring book, crayons, Bible and plastic magnifying glass permitted, other activities at RN discretion. 9. Bathroom privileges without limitation on M/S. 10. Phone: Use of hospital phone at RN discretion. 11. Due to INVOLUNTARY status, patient is being held at [facility] by the Department of Mental Health ([facility]). The 2nd certification by [facility] Psychiatrist has occurred and Ramone was found to be a person in need of involuntary treatment. Staff will provide de-escalation support (CPI) as needed. If patient wishes to leave [facility], staff will contact [facility] Crisis Screener ([phone]) and On-Call Band Saw Runner ([phone]) as soon as possible. In the event of elopement, notify [place] [employer] ([phone]). Patient is currently involuntarily at [facility]. [facility] Frontline Nurse Private Duty will continue seeking placement. Please contact the Oracle Distribution Consultant Band Saw Runner ([phone]) for any needed changes to Safety Plan. Safety plan has been provided to interdepartmental care team. Patient will be transported by [facility] at time of discharge.
--- NOTE | 2021-01-05 12:30 | RT.EKG_ITS ---
APPROVED REPORT Exam: Resting ECG Reason for Exam: QT Patient Location: I HR:89 bpm ECG Measurements Heart Rate 89 AXIS AZ 144 P 11 QRSd 84 QRS 27 QT 387 T 31 QTc 471 Conclusion Sinus rhythm...normal P axis, V-rate 60- 99
--- NOTE | 2021-01-05 12:37 | W.PM.PROGNOT ---
Date of Service Date of service: 01/05/21 Time of Service: 12:37 Assessment and Plan Assessment and plan (1) Suicidal ideation: Status: Acute Assessment and plan: Calm, No behavioral disturbances pending inpatient psychiatric transfer when bed available. (2) Anemia, iron deficiency: Status: Acute Assessment and plan: started on iron supplementation, H&H stable. stool was negative for occult blood. no further work up or testing needed at this time. (3) Paranoid delusion: Status: Acute Assessment and plan: Increase zyprexa up to 15 mg per psychiatry (4) Hypothyroidism: Status: Chronic Assessment and plan: His TSH is elevated with a low free T4. started on a low dose of levothyroxine. will need tsh check in 6-8 weeks. above case discussed with Dr. Edmond Subjective Subjective Patient reports: no new complaints, tolerating liquids well, tolerating a regular diet, voiding w/o difficulty and afebrile Exam Const Orientation: alert and awake Limitations: no language barrier HENMT Head: normal to inspection Mouth: oral mucosae normal Eyes Sclera: scleral abnormality (Pale bilaterally) Neck Neck: normal visual inspection Thyroid: thyroid normal Lymphatic: no lymphadenopathy noted Resp Effort & Inspection: normal respiratory effort Auscultation: clear to auscultation bilaterally, no rales and no rhonchi Cardio Rate: regular rate Heart Sounds: no murmurs GI Inspection: normal to inspection and non-distended Palpation: soft Skin General skin exam: turgor normal, no jaundice and pallor Psych Speech and Movement: not agitated and speech not slurred Attitude: refuses to answer Thought Process: flight of ideas and tangential Objective Last Vital Signs Temp 36.2 C L 01/05/21 07:50 Pulse 89 01/05/21 07:50 Resp 16 01/05/21 07:50 BP 93/64 L 01/05/21 07:50 Pulse Ox 99 01/05/21 07:50 Laboratory Results - last 24 hr 01/04/21 01/05/21 12:12 08:10 Hgb 8.0 L Hct 29.4 L SARS-CoV-2 (PCR) Negative
[2021-01-05] MEDS: LORazepam 1 MG TAB PO (13:34)
--- NOTE | 2021-01-05 13:39 | NUR.NOTE ---
Nursing Note: patient wanted to have a BM, but was concerned that he did not have a shower to use afterwards. Patient began to get very agitated because there was no shower in his room. ECHOCARDIOGRAPHY TECH and nursing assistant decided it was best to let him shower after his BM to deescalate the situation. Patient is happy with the outcome
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
--- NOTE | 2021-01-05 16:54 | CMPROGNOTE_ITS ---
- If Service Date Differs Date of service: 01/05/21 Time of Service: 16:54 Care Management Progress Note S/O: Ramone is laying in bed watching television when CM comes to meet with him. He is pleasant, polite and easily engages in conversation. He thanks me with tears in his eyes for the care and the food he is receiving at [facility] and asks to shake my hand. Ramone occupies his day with reading the Bible and watching television. Today is Ramone's 5th day at [facility]. CM will continue to follow. A: Ramone is a 65 year old male admitted to [facility] on 12/31/20 with SI, schizophrenia, psychosis. P: Ramone remains at [facility] on Involuntary hold. Referrals are faxed to [facility] and [facility] for review. All other psych hospitals are full. Once a bed becomes available at an inpatient psychiatric facility, he will be transported by , coordinated by [facility]. CM will continue to support patient.
--- NOTE | 2021-01-05 16:54 | PDOC.CMPRO ---
- If Service Date Differs Date of service: 01/05/21 Time of Service: 16:54 Care Management Progress Note S/O: Ramone is laying in bed watching television when CM comes to meet with him. He is pleasant, polite and easily engages in conversation. He thanks me with tears in his eyes for the care and the food he is receiving at [facility] and asks to shake my hand. Ramone occupies his day with reading the Bible and watching television. Today is Ramone's 5th day at [facility]. CM will continue to follow. A: Ramone is a 65 year old male admitted to [facility] on 12/31/20 with SI, schizophrenia, psychosis. P: Ramone remains at [facility] on Involuntary hold. Referrals are faxed to [facility] and [facility] for review. All other psych hospitals are full. Once a bed becomes available at an inpatient psychiatric facility, he will be transported by , coordinated by [facility]. CM will continue to support patient.
[2021-01-05 16:57] VITALS: BP 114/81; PULSE 91; RESP 18; TEMP 36.6; O2SAT 100
[2021-01-05] MEDS: traZODone 50 MG TAB PO (20:33)
[2021-01-05] MEDS: Zolpidem 5 MG TAB PO (21:50)
[2021-01-05] MEDS: Acetaminophen 325 MG TAB 650 MG PO (23:40)
[2021-01-06] MEDS: Levothyroxine 25 MCG TAB PO (06:30)
[2021-01-06 06:34] VITALS: BP 108/75; PULSE 90; RESP 16; TEMP 36.8; O2SAT 99
[2021-01-06] MEDS: Benztropine 1 MG TAB PO (07:59)
[2021-01-06] MEDS: Clopidogrel 75 MG TAB PO (07:59)
[2021-01-06] MEDS: Ferrous Sulfate 325 MG TAB PO (08:00)
[2021-01-06] MEDS: OLANZapine 10 MG TAB 15 MG PO (08:00)
--- NOTE | 2021-01-06 10:07 | NUR.NOTE ---
PT asking to speak with someone by the name of Saad. When I asked who Saad was he said, You know who Saad is. PT is also wondering when they will be here to take him to [place] Nursing Note:
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
--- NOTE | 2021-01-06 11:11 | NUR.NOTE ---
Nurse practitioner in room. Nursing Note:
--- NOTE | 2021-01-06 11:14 | NUR.NOTE ---
PATTERN WORKER aware that PT is a little anxious ever since he found out [facility]. PATTERN WORKER also just left room.Nursing Note:
--- NOTE | 2021-01-06 12:58 | NUR.NOTE ---
PT is getting agitated because The samoan are making my TV screen nothing but static and they're coming through to listen to us. I just want to go outside and get some damn sunshine just like you do. All you guys do is take my blood for DNA testing and leave me here to rot. RN notified. Nursing Note:
[2021-01-06] MEDS: LORazepam 1 MG TAB PO (13:20)
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
--- NOTE | 2021-01-06 13:43 | NUR.NOTE ---
Nursing Note: 01/06/21 10:55 This RN provided a [id number] handoff to Lat[facility] at the [facility] in [place] for this patient. The accepting provider, Dr. Peters, informed this RN of acceptance of patient to facility. This RN answered all questions.
--- NOTE | 2021-01-06 15:08 | CMDISCH_ITS ---
- If Service Date Differs Date of service: 01/06/21 Time of Service: 15:09 Care Management Discharge Reason for Hospitalization: SI Discharge Plan: Ramone was accepted to go to the [facility] for inpatient psychiatric stablization. He will be transported via [facility], coordinated by [facility]. He will follow up with his PCP, community supports, and discharge plan of care. Patient/Family Education Needs: Review discharge instructions regarding activity and medications, discussion of expectations for psychatric care. Services Needed at Discharge: Psychiatric Facility ([facility]), Transportation ([facility] ) - MH Services (Omit if N/A) Current MH Services: MILKING MACHINE TECHNICIAN - Disposition Disposition: Other ([facility]) Transport via of: Concrete Pipe Plant Supervisor ([facility])
--- NOTE | 2021-01-06 15:08 | PDOC.CMDIS ---
- If Service Date Differs Date of service: 01/06/21 Time of Service: 15:09 Care Management Discharge Reason for Hospitalization: SI Discharge Plan: Ramone was accepted to go [place] stablization. He will be transported via [facility], coordinated by [facility]. He will follow up with his PCP, community supports, and discharge plan of care. Patient/Family Education Needs: Review discharge instructions regarding activity and medications, discussion of expectations for psychatric care. Services Needed at Discharge: Psychiatric Facility ([place]), Transportation ([facility] ) - MH Services (Omit if N/A) Current MH Services: HISTORIC SITES SUPERVISOR - Disposition Disposition: Other ([place]) Transport via of: [place] ([facility])
== END 2021-01-06 18:09 | disposition short-term general hospital (02) ==
LOC: ER 01-03 19:56 → MS 01-03 20:06
PROVIDERS: Emergency Medicine; Family Medicine; Nurse Practitioner Family; Admitting Provider Family Medicine; Emergency Provider Physician Assistant; Visit Provider Family Medicine
DX: R45.851 Suicidal ideations (principal); D50.9 Iron deficiency anemia, unspecified; F20.0 Paranoid schizophrenia; E03.9 Hypothyroidism, unspecified; D61.818 Other pancytopenia
CPT/HCPCS: 36415; 80053; 80307; 85027; 87635; 99285; J1650; U0003; 80320; 82728; 83540; 83550; 84439; 84443; 85014; 85018; 85025; 85045; 85610; 85730; 99217; 99219; 99226; G0378

== ENCOUNTER 2021-12-21 17:54 | Inpatient (IN) | payer OTHER, SELFPAY ==
[2021-12-21 17:55] VITALS: PULSE 125; TEMP 37.4; O2SAT 96
[2021-12-21] MEDS: LORazepam 1 MG TAB 2 MG PO (18:48)
[2021-12-21] MEDS: Haloperidol 5 MG TAB PO (18:48)
--- NOTE | 2021-12-21 18:58 | ED.GENADUL_ITS ---
Discharge Plan Disposition Patient Disposition: STILL A PATIENT Condition: Serious Discharge Details Chief Complaint: PsychEval Clinical Impression: Closed right humeral fracture, Psychosis, Cirrhosis, Cholelithiasis Primary Care Provider: None,None ED Provider: Pankaj Montenegro Home Meds and New Rx's Prescriptions: No Action trazodone 50 mg Tablet 50 mg PO DAILY 0RF aspirin 325 mg Tablet 325 mg PO DAILY 0RF haloperidol decanoate [Haldol Decanoate] 100 mg/mL Solution 200 mg IM Q3W 0RF simvastatin 10 mg Tablet 10 mg PO DAILY 0RF clopidogrel [Plavix] 75 mg Tablet 75 mg PO DAILY 0RF benztropine 1 mg Tablet 1 mg PO BID 0RF furosemide 20 mg Tablet 20 mg PO QAM 0RF albuterol 90 mcg/actuation Aerosol 90 mcg INHALATION TID PRN0RF propranolol 20 mg Tablet 20 mg PO DAILY 0RF Medical Decision Making 1899 -- 66-year-old male with history and medical record of anemia, pancytopenia, hypothyroidism, paranoid delusion, here on EE, here with anxiety and agitation, and psychosis, not caring for himself at home, refusing treatment. Patient is tachycardic. He has obvious signs of injury to right shoulder as well as ecchymosis to his abdomen and flank which is concerning for intra-abdominal surgical process including traumatic injury. Patient is refusing IV. He is agreeable to anxiolytic and antipsychotic. I have given him Haldol 5 mg p.o. and Ativan 2 mg p.o. which he is taken voluntarily for his anxiety and psychosis. Plan for IV access and diagnostic work-up when agreeable after treatment of anxiety. -- Patient reassessed and feeling better after Haldol and Ativan. Resting comfortably. He was agreeable to IV and labs. Labs reviewed and nondiagnostic. --CT of the head interpreted by radiology: No acute intracranial abnormality. CT of the cervical spine interpreted by radiology: No acute skeletal pathology. CT of the chest was reviewed and interpreted by radiology: Right humeral neck fracture which may be pathologic in origin. Chronic T3 and T7 vertebral body compression fractures. No evidence of intrathoracic injury. CT of the abdomen and pelvis interpreted by radiology: No abdominal visceral injury. Cirrhosis and portal hypertension noted. Distended gallbladder with wall thickening and solitary stone. Correlate with right upper quadrant ultrasound as felt clinically. Patient is not complaining of abdominal pain but has unreliable history and exam. He has no leukocytosis. Total bilirubin is 1.3 otherwise unremarkable LFTs. Plan to reassess in a.m. for potential need for ultrasound. I called and spoke with Dr. Manjarrez, on-call orthopedic, he reviewed CT and requested x-ray be performed. He will evaluate the patient in the a.m. -- Of note, home medication reconciliation could not be performed. Report from crisis screener notes that patient has not been taking medication as prescribed. Medication will need to be confirmed with pharmacy in the a.m. HPI General Mode of arrival: EMS . Date/Time Provider Initiated Documentation: 12/21/21 18:00 . Limitations to Documentation: altered mental status . Information obtained by: patient . HPI Narrative: 66-year-old male with history of schizoaffective disorder here on EE with concern for acute acute psychosis, noncompliant with his medication and not caring for himself at home. But he is continuing services crisis screener notes that patient was living in trash filled environment. Patient has no complaint. Related Data Home Medications Medication Instructions Recorded Confirmed albuterol 90 mcg/actuation aerosol 90 mcg INHALATION TID PRN 01/03/21 01/03/21 inhaler aspirin 325 mg tablet 325 mg PO DAILY 01/03/21 01/03/21 benztropine 1 mg tablet 1 mg PO BID 01/03/21 01/03/21 clopidogrel 75 mg tablet (Plavix) 75 mg PO DAILY 01/03/21 01/03/21 furosemide 20 mg tablet 20 mg PO QAM 01/03/21 01/03/21 haloperidol decanoate 100 mg/mL 200 mg IM Q3W 01/03/21 01/03/21 intramuscular solution (Haldol Decanoate) propranolol 20 mg tablet 20 mg PO DAILY 01/03/21 01/03/21 simvastatin 10 mg tablet 10 mg PO DAILY 01/03/21 01/03/21 trazodone 50 mg tablet 50 mg PO DAILY 01/03/21 01/03/21 Allergies Allergy/AdvReac Type Severity Reaction Status Date / Time No Known Allergies Allergy Unverified 01/03/21 21:24 General Stated Complaint: PsychEval CARMITA: 2 Review of Systems Unobtainable due to mental status PFSH All Active Problems (Updated 12/21/21 @ 23:11 by Pankaj Montenegro MD) Suicidal ideation (Acute) Paranoid delusion (Acute) Anemia, iron deficiency (Acute) Pancytopenia (Acute) Hypothyroidism (Chronic) Closed right humeral fracture (Acute) Psychosis (Acute) Cirrhosis (Acute) Cholelithiasis (Acute) Medical History Anemia Schizophrenia Social History Smoking/Tobacco Use Status: Former Tobacco Use Smoking risk assessment performed?: Yes Alcohol Intake: former Drug use: Never Substance use type: former substance user Do you feel safe at home: Yes Do you feel safe in your relationship?: Yes Exam Const General: anxious and disheveled Orientation: alert and awake HENMT Head: normocephalic and atraumatic Mouth: mucous membranes dry Eyes Conjunctivae: normal conjunctivae Sclera: normal sclerae Resp Auscultation: clear to auscultation bilaterally, no rales, no rhonchi and no wheezes Cardio Rate: tachycardic Rhythm: regular rhythm GI Palpation: soft, not firm, no guarding, no masses, not rigid and nontender Skin General skin exam: erythema (rt shoulder) Neuro General: patient alert, patient awake and tone normal Extrem General: pedal edema bilaterally pitting and 1+ Right upper extremity: shoulder/upper arm Details: swelling Location: of the shoulder joint and deformity Location: of the shoulder joint Psych Appearance: disheveled Speech and Movement: speech not clear and pressured speech Affect: animated and anxious affect Attitude: guarded Insight: poor Judgment: poor Course Vital Signs Vital signs: Vital Signs Temperature 37.4 C 12/21/21 17:55 Pulse 125 H 12/21/21 17:55 Pulse Oximetry 96 12/21/21 17:55 Temperature 37.4 C 12/21/21 17:55 Temperature Source Temporal Artery Scan 12/21/21 17:55 Pulse 125 H 12/21/21 17:55 Respiratory Effort Non-Labored 12/21/21 18:05 Pulse Oximetry 96 12/21/21 17:55
[2021-12-21 19:26] LABS: Abs Immature Grans 0.01 10^3/uL (0.0-0.06); Absolute Basophil Count 0.02 10^3/uL (0.0-0.2); Absolute Eosinophil Count 0.03 10^3/uL (0.0-0.7); Absolute Lymphocyte Count 0.64 10^3/uL (1.2-3.4); Absolute Monocyte Count 0.57 10^3/uL (0.1-0.8); Absolute Neutrophil Count 2.72 10^3/uL (1.2-6.7); Basophils % 0.5; Eosinophils % 0.8; HCT 36.7 % (40.0-50.0); HGB 11.6 g/dL (13.5-17.5); Immature Grans % 0.3; MCH 31.4 pg (27.0-33.0); MCHC 31.6 % (32.0-36.0); MCV 100 fL (80-95); MPV 9.9 fL (8.0-11.0); Monocytes % 14.3; Neutrophils % 68.1; Platelet Count 105 10^3/uL (130-400); RBC 3.69 10^6/uL (4.36-5.78); RDW 16.7 % (11.8-14.1); RDW-SD 61.9 fL; WBC 3.99 10^3/uL (4.4-10.8)
[2021-12-21 19:34] LABS: Lipase 125 U/L (73-393)
[2021-12-21 19:38] LABS: Creatine Kinase 301 U/L (39-308)
--- NOTE | 2021-12-21 19:38 | PDOC.MHCN_ITS ---
Date of service: 12/21/21 Time of Service: 19:38 Mental Health Crisis Note Presenting Issue How did you arrive at the ED and why did you come: Pt arrived via [facility] on a mental health warrant executed by this typewriter repairer. Precipitating Factors Pt did not answer if he was SI or HI however, he is clearly medically compromised due to his psychosis and needs treatment. Disposition BEHAVIOR: None compliant, guarded and scared. He also presents as paranoid and tearful when assessed at his home. He would only speak to this clinician through the window and would not come to or open the door. EYE CONTACT: intense and inconsistent. MOOD: Guarded, paranoid, tearful. AFFECT: Congruent with mood. APPETITE: Not assessed but he appears as if he has lost a great deal of weight. SLEEP(trouble falling/staying asleep: Not assessed. Plan Pt will remain at [facility] pending medical clearance. He will be assessed daily if voluntary and twice daily by [facility] if an EE is completed by the attending physician. At this time it is this clinician's professional opinion that the Pt is in need of intense, short term treatment to address his mental health and medical needs until he can safely return to the community. Signature Clinician's Name/Title: Maria Victoria Huynh MS, [facility] Emergency Services Clinician, [facility]
[2021-12-21 19:47] LABS: ALT 41 U/L (16-63); AST 41 U/L (15-37); Alkaline Phosphatase 253 U/L (46-116); Anion Gap 10.3 mmol/L (3-11); BUN 21 mg/dL (7-18); Bilirubin, Total 1.3 mg/dL (0.2-1.0); CO2 28.7 mmol/L (21.0-32.0); CREATININE 0.8 mg/dL (0.70-1.30); Calcium 8.3 mg/dL (8.5-10.1); Chloride 112 mmol/L (98-107); Glucose 85 mg/dL (74-106); Potassium 3.3 mmol/L (3.5-5.1); Sodium 151 mmol/L (136-145); TSH (W/Ref FT4) 4.09 uIU/mL (0.36-3.74)
--- NOTE | 2021-12-21 20:00 | DI.CT_ITS ---
Exam(s) CT CHEST/ABD/PEL W EXAM: CT CHEST/ABD/PEL W CLINICAL HISTORY: trauma, song bose sign, tachycardic. TECHNIQUE: Imaging Protocol: Axial computed tomography images with coronal and sagittal reformatted images were created and reviewed CONTRAST MATERIAL: Intravenous: Omnipaque 350 Contrast volume:100 ml Oral: / no COMPARISON: No exams were available for comparison FINDINGS: CHEST: Tracheobronchial tree: Patent where visualized. Mediastinum and Elizabeth: No dominant adenopathy or fluid collection. Pulmonary parenchyma: Evaluation is somewhat limited due to dependent changes and respiratory motion. Emphysematous changes upper lobes. Pleura: No effusion or pneumothorax. Lymph nodes: Within normal limits. Aorta: Thoracic portion non-dilated. Heart: Normal size. Coronary artery calcifications. Bones: Spine: Lytic lesion in T1. Compression fracture, moderate in T3. Question of abnormal sclero sis. Ingk-rd-oajtxcyl compression fracture T7. Right shoulder: Severely displaced fracture of the surgical neck of the humerus. Multiple small comm inuted fragments. Large amount of abnormal surrounding low density fluid as well as abnormal enhance ment. Underlying mass is suspected. No additional destructive lesions seen in the clavicle or scapu la. ABDOMEN: Liver: Nodular, cirrhotic-appearing liver. Left upper quadrant varices. No measurable mass. Gallbladder and biliary tract: Gallbladder is distended and shows a single stone in the dependent por tion. No definite wall thickening. No biliary dilatation. Pancreas: Normal density, no abnormal calcifications or inflammatory process. Spleen: Enlarged. Kidneys: Normal size, contour and axis. No radiodense stones or obstructive uropathy. No masses seen. Adrenal glands: No masses seen. Aorta: Abdominal portion non-dilated. Atherosclerotic changes. Lymph nodes: Within normal limits. Soft tissues: Mild diffuse body wall edema. PELVIS: Bladder: Symmetric distention, no gross wall thickening. Bowel: No obstruction or bowel wall thickening. Peritoneal cavity: Minimal ascites around the liver. No focal collection or mesenteric inflammatory response. Bones: There are lucencies in the endplates of L3 and L4 and L5, which could be degenerative versus m etastatic lesions. Reproductive organs: Within normal limits. IMPRESSION: 1. Fracture of the proximal right humerus with question of underlying pathologic lesion. There is a large amount of abnormal enhancement of the soft tissues surrounding the fracture, suspicious for mas s. Indeterminate lytic lesions are seen in the spine, which could represent degenerative cysts versu s metastatic lesions. 2. Cirrhotic liver. 3. Cholelithiasis. No definite acute cholecystitis. RADIATION DOSE DELIVERED: 1,042.8mGy.cm Total DLP DATA REPOSITORY: All CT scans at this facility are submitted to the National Radiology Data Registry (NRDR) Dose Index Registry (DIR) with the [employer] (A[employer]). RADIATION OPTIMIZATION: All CT scans at this facility use at least one of these dose optimization te chniques: automated exposure control; mA and/or kV adjustment per patient size (includes targeted exa ms where dose is matched to clinical indication); or iterative reconstruction.
--- NOTE | 2021-12-21 20:00 | DI.CT_ITS ---
Exam(s) CT HEAD CERVICAL SPINE WO EXAM: CT HEAD CERVICAL SPINE WO CLINICAL HISTORY: trauma. TECHNIQUE: Imaging Protocol: Axial computed tomography images with coronal and sagittal reformatted images were created and reviewed COMPARISON: No exams were available for comparison FINDINGS: Head CT Ventricles and Extra axial spaces: Normal in size and morphology for the patient's age. Hemorrhage: None. Cerebral parenchyma: Normal. Midline shift: None. Brainstem/Cerebellum: Normal. Calvarium: Normal. Visualized Paranasal sinuses/Mastoids: Clear. Cervical Spine CT BONES: Vertebral body heights are maintained. Alignment is normal. There is no evidence of acute frac ture. Degenerative disc changes and facet degenerative changes are seen . there is a lytic lesion in T1 wh ich could represent a metastatic lesion versus is benign cystic lesion.. There is a chronic deform ity of the posterior of the spinous process of T1. SOFT TISSUES: No paraspinal hematoma. The airway appears intact. No pneumothorax is seen at the lung apices. IMPRESSION: Head CT: No acute abnormality. C-spine CT: Degenerative changes, no acute abnormality. Lytic lesion T1, benign cyst versus metastasi s. RADIATION DOSE DELIVERED: 1,046.51mGy.cm Total DLP DATA REPOSITORY: All CT scans at this facility are submitted to the National Radiology Data Registry (NRDR) Dose Index Registry (DIR) with the [employer] (ACR). RADIATION OPTIMIZATION: All CT scans at this facility use at least one of these dose optimization te chniques: automated exposure control; mA and/or kV adjustment per patient size (includes targeted exa ms where dose is matched to clinical indication); or iterative reconstruction.
[2021-12-21 20:42] LABS: Acetaminophen < 2 ug/mL (10-30); Salicylate < 2.8 mg/dL (<2.8)
--- NOTE | 2021-12-21 20:47 | DI.VRAD_ITS ---
PROCEDURE INFORMATION: Exam: CT Head Without Contrast Exam date and time: 12/21/2021 8:22 PM Age: 66 years old Clinical indication: Injury or trauma; Other: Unknown trauma; Blunt trauma (contusions or hematomas); Consciousness not specified; Injury date: 12/21/21 TECHNIQUE: Imaging protocol: Computed tomography of the head without contrast. Radiation optimization: All CT scans at this facility use at least one of these dose optimization techniques: automated exposure control; mA and/or kV adjustment per patient size (includes targeted exams where dose is matched to clinical indication); or iterative reconstruction. COMPARISON: No relevant prior studies available. FINDINGS: Brain: Normal. No hemorrhage. Unremarkable white matter. No mass effect. Cerebral ventricles: No ventriculomegaly. Paranasal sinuses: Visualized sinuses are unremarkable. No fluid levels. Mastoid air cells: Visualized mastoid air cells are well aerated. Bones/joints: Unremarkable. No acute fracture. Soft tissues: Unremarkable. IMPRESSION: No acute intracranial abnormality. PROCEDURE INFORMATION: Exam: CT Cervical Spine Without Contrast Exam date and time: 12/21/2021 8:22 PM Age: 66 years old Clinical indication: Injury or trauma; Other: Unknown trauma; Blunt trauma (contusions or hematomas); Consciousness not specified; Injury date: 12/21/21 TECHNIQUE: Imaging protocol: Computed tomography images of the cervical spine without contrast. Radiation optimization: All CT scans at this facility use at least one of these dose optimization techniques: automated exposure control; mA and/or kV adjustment per patient size (includes targeted exams where dose is matched to clinical indication); or iterative reconstruction. COMPARISON: No relevant prior studies available. FINDINGS: Bones/joints: Multilevel degenerative changes of the vertebra are present, as manifested by multilevel anterior osteophytes, endplate sclerosis, and multilevel posterior disc osteophyte complexes. There is no evidence of acutely displaced fractures. There is no evidence of joint dislocation. No aggressive osseous lesions. Discs/Spinal canal/Neural foramina: Mild multilevel bony neural foraminal stenosis. The spinal canal is patent. Lungs: Lung apices are not included in this examination. Vasculature: There is mild atherosclerotic calcification of the carotid arteries. Soft tissues: Unremarkable. IMPRESSION: No acute skeletal pathology. Dictated and Authenticated by: Jose Zelaya MD. Ordering:YOGESH Lira MD
[2021-12-21 20:49] LABS: ETHANOL BLOOD < 3.0 mg/dL (<10)
--- NOTE | 2021-12-21 21:05 | DI.VRAD_ITS ---
PROCEDURE INFORMATION: Exam: CT Chest With Contrast; Diagnostic Exam date and time: 12/21/2021 8:26 PM Age: 66 years old Clinical indication: Injury or trauma; Other: Unknown; Generalized; Blunt trauma (contusions or hematomas); Injury date: 12/21/21; Injury details: Trauma, song bose sign, tachycardic TECHNIQUE: Imaging protocol: Diagnostic computed tomography of the chest with contrast. 3D rendering (Not supervised by radiologist): MIP and/or 3D reconstructed images were created by the technologist. Total images: 2501 Radiation optimization: All CT scans at this facility use at least one of these dose optimization techniques: automated exposure control; mA and/or kV adjustment per patient size (includes targeted exams where dose is matched to clinical indication); or iterative reconstruction. Contrast material: OMNIPAQUE; Contrast volume: 100 ml; Contrast route: INTRAVENOUS (IV); COMPARISON: CT HEAD CERVICAL SPINE WO 12/21/2021 8:22 PM FINDINGS: Lungs: Moderate bilateral upper lobe emphysematous disease. Patchy consolidative changes at the lung bases which may in part be dependent in origin. Otherwise no evidence of parenchymal contusion. No parenchymal laceration. No endobronchial lesion. Pleural spaces: No pneumothorax. No hemothorax. Heart: No pericardial fluid. Mediastinal space: No pneumomediastinum. No hemomediastinum. Lymph nodes: No mediastinal, hilar or axillary adenopathy. Vasculature: Unremarkable. No aortic aneurysm. Intraperitoneal space: (See below). Bones/joints: There is an acute angulated displaced fracture involving the right humeral neck. There is associated lytic change involving the right humeral head and neck. There is a large fluid collection along the anterior aspect of the fracture lined by hypervascularity. There is a significant compression fracture of T3 with endplate sclerosis. There is a moderate compression fracture of T7 with subtle central lytic change. Soft tissues: Extrathoracic soft tissues are unremarkable. IMPRESSION: 1. Right humeral neck fracture which may be pathologic in origin as described above. 2. Chronic T3 and T7 vertebral body compression fractures. 3. No evidence of intrathoracic injury. PROCEDURE INFORMATION: Exam: CT Abdomen And Pelvis With Contrast Exam date and time: 12/21/2021 8:26 PM Age: 66 years old Clinical indication: Injury or trauma; Other: Unknown; Generalized; Blunt trauma (contusions or hematomas); Injury date: 12/21/21; Injury details: Trauma, song bose sign, tachycardic TECHNIQUE: Imaging protocol: Computed tomography of the abdomen and pelvis with contrast. 3D rendering (Not supervised by radiologist): MIP and/or 3D reconstructed images were created by the technologist. Radiation optimization: All CT scans at this facility use at least one of these dose optimization techniques: automated exposure control; mA and/or kV adjustment per patient size (includes targeted exams where dose is matched to clinical indication); or iterative reconstruction. Contrast material: OMNIPAQUE; Contrast volume: 100 ml; Contrast route: INTRAVENOUS (IV); COMPARISON: CT HEAD CERVICAL SPINE WO 12/21/2021 8:22 PM FINDINGS: Lungs: Bilateral dependent change. Liver: Nodular contour to a mildly heterogeneous appearing liver. No focal hepatic mass. No hepatic laceration. Gallbladder and bile ducts: Distended gallbladder with a 5 mm solitary calcified dependent stone. There may be minimal gallbladder wall thickening. No pericholecystic inflammation. Pancreas: No pancreatic laceration. Spleen: Mild splenomegaly. No splenic laceration. Adrenal glands: No adrenal hematoma. Kidneys and ureters: Kidneys homogeneously enhance. Stomach and bowel: Stomach is grossly unremarkable. No small or large bowel dilatation. No definite bowel wall thickening. Appendix: No evidence of appendicitis. Intraperitoneal space: No free intraperitoneal air. No free fluid. Vasculature: There are left upper quadrant varices. Lymph nodes: No significant adenopathy. Urinary bladder: No definite bladder wall thickening. Reproductive: Unremarkable as visualized. Bones/joints: There is a mild compression deformity associated with Schmorl's nodes involving the anterior aspect of the L1 vertebral body. There is degenerative disc disease most notable at L2-L3 and L3-L4. Small lumbar inferior endplate Schmorl's nodes at the L3 and L4 levels. Soft tissues: Extra-abdominal soft tissues are unremarkable. IMPRESSION: 1. No abdominal visceral injury. 2. Cirrhosis and portal hypertension. 3. Distended gallbladder with wall thickening and solitary stone. Correlate with right upper quadrant ultrasound as felt clinically. Dictated and Authenticated by: Saad Philippe MD. Ordering:YOGESH Lira MD
[2021-12-21 22:15] VITALS: PULSE 79; TEMP 36.4; O2SAT 99
--- NOTE | 2021-12-21 22:30 | DI.RAD_ITS ---
Exam(s) XR SHOULDER RT COMPLETE 2+V EXAM: XR SHOULDER RT COMPLETE 2+V CLINICAL HISTORY: pain. TECHNIQUE: 2D digital imaging was performed. 4 views. COMPARISON: No exams were available for comparison FINDINGS: There is a fracture extending mainly transversely through surgical neck of the humerus. There is sev ere displacement and multiple tiny comminuted fragments around the main fracture site. There is subl uxation of the humeral head with respect to the glenoid likely secondary to effusion. There is marke d surrounding soft tissue swelling. The distal clavicle and scapula appear intact. IMPRESSION: Displaced proximal humeral fracture DATA REPOSITORY: RADIATION DOSE DELIVERED:
[2021-12-21 22:34] VITALS: BP 94/70
[2021-12-21 22:34] LABS: Source Nasal/Nares
[2021-12-21 23:06] VITALS: BP 118/84
[2021-12-21 23:06] LABS: Lab Add On Test DONE
[2021-12-21 23:07] LABS: ESR 8 mm/hr (0-20)
--- NOTE | 2021-12-21 23:10 | DI.VRAD_ITS ---
PROCEDURE INFORMATION: Exam: XR Right Shoulder Exam date and time: 12/21/2021 10:46 PM Age: 66 years old Clinical indication: Pain; Shoulder; Right TECHNIQUE: Imaging protocol: XR Right shoulder. Views: 2 or more views. Total images: 4 COMPARISON: CT CHEST/ABD/PEL W 12/21/2021 8:26 PM FINDINGS: Bones/joints: There is a fracture of the right humeral neck. There is comminution with multiple small fracture fragments identified. There is angulation and lateral displacement the major proximal fracture fragment relative to the humeral shaft. There is mild posterior subluxation of the humeral head. There is relative lucency identified involving the base of the humeral head and proximal humeral shaft. The remaining bony structures are intact. Soft tissues: There is subcutaneous edema. IMPRESSION: Displaced angulated right humeral neck fracture. Clinical correlation recommended with regard to history of primary malignancy as findings could be pathologic in etiology. Dictated and Authenticated by: Saad Philippe MD. Ordering:YOGESH Lira MD
[2021-12-21 23:26] LABS: C-Reactive Protein 3.09 mg/dL (0.0-0.3)
[2021-12-21 23:29] LABS: COVID-19 PCR Negative (Negative)
[2021-12-21 23:47] LABS: Bilirubin Negative (Negative); Blood Small (Negative); Clarity Sl Cloudy (Clear); Glucose Negative (Negative); Ketones Trace mg/dL (Negative); Leukocyte Esterase Negative (Negative); Nitrite Positive (Negative); pH 5.5 (5-8)
[2021-12-21 23:51] LABS: *AMPHETAMINES SCREEN URINE Negative (Negative); *BARBITURATES SCREEN URINE Negative (Negative); *BENZODIAZEPINES SCREEN URINE Negative (Negative); Cannabinoids THC Negative (Negative); Cocaine Screen,Urine Negative (Negative); METHADONE URINE SCREEN Negative (Negative); OPIATES URINE SCREEN Negative (Negative)
[2021-12-21 23:52] LABS: Tricyclic Antidepressants Negative (Negative)
[2021-12-21] MEDS: Lactated Ringers 1,000 ML 1000 ML IV (23:55)
[2021-12-22] VITALS (36 sets, daily range): BP systolic 66–127; BP diastolic 42–94; PULSE 66–106; RESP 20–23; TEMP 36–36.7; O2SAT 92–99
[2021-12-22 00:02] LABS: Epithelial Cells Negative HPF (Negative); WBC 0-2 HPF (0-5)
[2021-12-22 00:03] LABS: Bacteria Many HPF (Negative); C & S Indicated? Yes; Casts Negative LPF (Negative); Crystals Few Calcium Oxalate HPF (Negative); Mucus Negative (Negative)
[2021-12-22 00:08] LABS: D-Dimer 3526 ng/mlFEU (<500)
[2021-12-22] MEDS: cefTRIAXone 1 GM/50 ML BAG IVPB (00:57)
--- NOTE | 2021-12-22 01:10 | W.EDPROG ---
Date of service: 12/22/21 Time of Service: 01:11 Medical Decision Making Patient slept a good part of the night. Became a little loud this morning and agitated but not belligerent. Willingly took oral Haldol. Repeat laboratory studies obtained after fluids overnight. Dr. Manjarrez is requesting MRI of the right shoulder. Right upper quadrant ultrasound has also been ordered. Still needs medical clearance as well as mental health eval. [place] psych has also been consulted. Lab Data Lab results reviewed: Yes I reviewed the patient's lab results. Sign Out Sign Out Data: Sign Out Comment: Ortho eval in AM. Mental health eval in am. Patient here on EE. Telepsych consult pending. Reassess abdomen in AM and consider RUQ US. Pharmacy to be contacted in AM for med rec. Home meds should be reinitiated as appropriate. Last updated by Pankaj Montenegro MD at 12/21/21 23:26 Discharge Plan Disposition Patient Disposition: STILL A PATIENT Condition: Serious Discharge Details Clinical Impression: Closed right humeral fracture, Psychosis, Cirrhosis, Cholelithiasis Primary Care Provider: None,None ED Provider: Ramone Belle Home Meds and New Rx's Prescriptions: No Action trazodone 50 mg Tablet 50 mg PO DAILY 0RF aspirin 325 mg Tablet 325 mg PO DAILY 0RF haloperidol decanoate [Haldol Decanoate] 100 mg/mL Solution 200 mg IM Q3W 0RF simvastatin 10 mg Tablet 10 mg PO DAILY 0RF clopidogrel [Plavix] 75 mg Tablet 75 mg PO DAILY 0RF benztropine 1 mg Tablet 1 mg PO BID 0RF furosemide 20 mg Tablet 20 mg PO QAM 0RF albuterol 90 mcg/actuation Aerosol 90 mcg INHALATION TID PRN0RF propranolol 20 mg Tablet 20 mg PO DAILY 0RF
[2021-12-22] MEDS: Lactated Ringers 1,000 ML 150 ML IV ×2 (01:34→08:21)
--- NOTE | 2021-12-22 05:00 | DI.US_ITS ---
Exam(s) US ABDOMEN LIMITED EXAM: US ABDOMEN LIMITED CLINICAL HISTORY: abnormal GB on CT TECHNIQUE: Ultrasound abdomen performed using standard protocol. COMPARISON: CT CT CHEST/ABD/PEL W from 12/21/2021 MR MR UPPER JOINT RT WO from 12/22/2021 FINDINGS: Limited exam was performed due to patient condition. Gallbladder is somewhat distended and shows wal l thickening. There is a stone in the gallbladder neck measuring 9 millimeters. There is a mild yolie unt of pericholecystic fluid. Sonographic Pinedo sign was not elicited. No intrahepatic biliary dil atation. Visualized portions of the liver appear heterogeneous, consistent with Cirrhosis. IMPRESSION: Limited exam. Gallbladder wall thickening and small amount of pericholecystic fluid. Single gallsto ne in the neck. Findings could indicate acute cholecystitis or could be secondary to hypoproteinemia . DATA REPOSITORY:
[2021-12-22] MEDS: Potassium Chloride 20 MEQ TABCR PO (06:28)
[2021-12-22] MEDS: Haloperidol 5 MG TAB PO ×2 (06:28→09:30)
--- NOTE | 2021-12-22 07:00 | DI.MRI_ITS ---
Exam(s) MR UPPER JOINT RT WO EXAM: MR UPPER JOINT RT WO CLINICAL HISTORY: possible pathological fracture R proximal humerus. TECHNIQUE: Multiplanar multisequence MRI was performed. COMPARISON: Plain films of the right shoulder and CT of the chest 21 Dec 2021 FINDINGS: BONES: There is a severely displaced fracture of the proximal humerus, also with angulation. Small c omminuted fragments are noted. There is a large amount of surrounding fluid. There is evidence of b allyson destruction at the fractured surfaces consistent with a pathologic fracture. There is marked ab normal edema surrounding the proximal humerus extending nearly to the skin surface. There is also ma rked edema within multiple muscles. Abnormal marrow signal in visualized portions of humeral shaft. Normal marrow signal in glenoid, acromion and distal clavicle. JOINTS: The acromioclavicular joint is normal. There is subluxation of the humeral head with respect to the glenoid given the large amount of surrounding fluid. TENDONS: Supraspinatus: Question partial tear muscle atrophy. Infraspinatus: No definite tear. Muscle atrophy. Subscapularis: Full-thickness tear. Teres Minor: Unremarkable. Biceps and [place]: Full-thickness tear of the biceps tendon. GLENOID LABRUM: Question labral tear.. IMPRESSION: Pathologic fracture through the proximal humerus with marked displacement and comminution. Large yolie unt of surrounding fluid and infiltrative mass. Evaluation of mass is limited without IV contrast. Full-thickness tears of the subscapularis and biceps tendons. DATA REPOSITORY: CONTRAST MATERIAL: noncontrast
--- NOTE | 2021-12-22 07:12 | OCONE_ITS ---
Date of service: 12/22/21 Time of Service: 07:12 History of Present Illness History of Present Illness Chief Complaint: Right Shoulder Fracture Narrative: Ramone is a 66-year-old male who was brought to the emergency department for an emergency evaluation with significant mental health concerns. During the medical evaluation by Dr. Montenegro there is noted ecchymosis, swelling, and pain about the right shoulder. Given limitations with examination a CT scan of his head, neck, and chest abdomen pelvis was performed. This identified a comminuted fracture about the right proximal humerus with concerns of pathologic etiology. CT scan showed significant peripheral enhancement with vascularity and large soft tissue component which was unclear on origin. There is notable comminution and displacement of the proximal humerus fracture. Additionally, the CT scan showed multiple questionable lesions within the spine as well. I was called in consultation. Ramone unfortunately is unable to give too many details. He greets me as Humberto and states that he is glad to see me again. This is my first interaction with Mr. Meeks. I asked details about the pain and he says he has complete pain in his*body from the waist up but the waist down is okay. He does says that the right arm is difficult to use but he has been able to try to use it for light activity although he does so with limitations in pain. 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 I am unable to confirm that statement. He also does report back pain although is unable to localize any particular area. He denies changes to his bowel or bladder. 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 Consults Consult date: 12/21/21 Requesting physician: Pankaj Montenegro Consult Reason Pathologic right humerus fracture Assessment and Plan Assessment and plan (1) Pathological fracture of humerus: Status: Acute Assessment and plan: This appears to be a pathologic fracture of the right humerus. I am unable to determine exactly what this mass is but my suspicion is that may be a sarcoma given the appearance on the MRI and its proximity and invasion of the subcutaneous tissues anteriorly. This is outside of my specialty scope and does need specialty involvement to determine what it may be and this likely will include some form of biopsy which must be performed at a center which does that and also has orthopedic oncological services. There is no other treatment necessary at this time until there is further work-up done for the fracture itself. He will be limited with what he can do on the right arm. However, he may use it as tolerated. Sling can be utilized for comfort. I would encourage him to use his elbow and his wrist and his hand as much as he can while there will be limited motion at the level of the shoulder. (2) Lytic lesion of bone on x-ray: Status: Acute Assessment and plan: There are multiple areas of lysis and what appear to be some blastic change within the spine. While some appear to be degenerative and could be atypical Schmorl's nodes I am concerned this does represent metastatic disease in the spine. Full spine MRI can be considered to further evaluate these lesions. Once again, the majority of this work-up in process should be completed at a tertiary center with specialist who can better evaluate these images and direct treatment. No change to his amatory status. No precautions necessary. (3) Degenerative disc disease, cervical: Status: Acute Assessment and plan: Severe degenerative change within the cervical spine. Once again, this could be related to pathologic process but is unclear. MRI of the cervical spine could be considered to evaluate for metastatic disease. Review of Systems Unobtainable due to mental condition PFSH All Active Problems (Updated 12/22/21 @ 16:09 by Simon Manjarrez MD) Degenerative disc disease, cervical (Acute) Lytic lesion of bone on x-ray (Acute) Pathological fracture of humerus (Acute) Suicidal ideation (Acute) Paranoid delusion (Acute) Anemia, iron deficiency (Acute) Pancytopenia (Acute) Hypothyroidism (Chronic) Closed right humeral fracture (Acute) Psychosis (Acute) Cirrhosis (Acute) Cholelithiasis (Acute) Acute UTI (Acute) Medical History Anemia Schizophrenia Social History Smoking/Tobacco Use Status: Former Tobacco Use Smoking risk assessment performed?: Yes Alcohol Intake: former Drug use: Never Substance use type: former substance user Do you feel safe at home: Yes Do you feel safe in your relationship?: Yes Exam Narrative Exam Narrative: Ramone is sitting up in the hospital stretcher. He agrees me as Humberto is into the room. He is alert and very talkative. His head is normocephalic and atraumatic. Eyes are anicteric. Neck is supple without significant ly mphadenopathy that I can detect. He reports pain to palpation throughout the entirety of his cervical, thoracic, and lumbar spine. He quickly answers yes to pain although it was difficult to localize this anywhere. No step-off was appreciated. When I went back through the exam he seemed to focus majority of his pain complaints to the thoracic region. No masses or palpable abnormalities about the cervical, thoracic, lumbar spine. He did have some limited neck rotation. Evaluation of the right shoulder shows notable swelling about the proximal arm down into the hand although primarily focused between the shoulder and the elbow. There is redness over the anterior portion of the humerus and the shoulder which has a brawny appearance to it, but not quite peau d'orange. There is ecchymosis seen at the distal aspect of the arm just proximal to the elbow. There is pain to palpation throughout the entirety of the humerus but focus mostly about the proximal aspect of the shoulder. He is using the right hand while I am observing him prior to the examination. I am able to externally rotate about 20 degrees and internally rotate to his belly. I can also forward flex to about 30 degrees. He does say that it hurts but he does not seem to have any objective findings at that time. Elbow range of motion is full as best that can be evaluated in the bed with no significant crepitus or mutations. The proximal aspect of the arm is quite full although it is compressible. There is a firmness to this area especially anteriorly. No crepitus. Palpable radial pulse. Sensation is reported as being intact from C5-T1 although he does report some decrease sensation he is unable to specify. Likewise, he reports tingling in his legs although he is unable to specify location but grossly does respond to stimulation from L3-S1. Strength was not able to be tested proximally about the right arm but distally he had intact strength to wrist extension, wrist flexion, finger abduction, finger flexion, finger extension. Likewise he has 5 out of 5 strength from L3-S1. Results Last Vital Signs Temp 36.4 C 12/21/21 22:15 Pulse 79 12/21/21 22:15 BP 105/74 12/22/21 06:15 Pulse Ox 99 12/21/21 22:15 Labs Result diagrams: 12/21/21 19:10 12/22/21 07:15 Labs: Laboratory Results - last 24 hr 12/21/21 12/21/21 12/21/21 11:21 19:10 19:10 WBC RBC Hgb Hct MCV MCH MCHC RDW Plt Count MPV Immature Gran % Neutrophils % Lymphocytes % Monocytes % Eosinophils % Basophils % Nucleated RBC % Absolute Neutrophils Absolute Lymphocytes Absolute Monocytes Absolute Eosinophils Absolute Basophils ESR D-Dimer 3526 H Sodium 151 H Potassium 3.3 L Chloride 112 H Carbon Dioxide 28.7 Anion Gap 10.3 BUN 21 H Creatinine 0.8 Estimated GFR/1.73 m2 >= 60.00 Glucose 85 Calcium 8.3 L Total Bilirubin 1.3 H AST 41 H ALT 41 Alkaline Phosphatase 253 H Creatine Kinase C-Reactive Protein Total Protein 7.0 Albumin 3.0 L Lipase TSH 4.09 H Free T4 1.00 Urine Color Urine Clarity Urine pH Ur Specific [place] Urine Protein Urine Ketones Urine Blood Urine Nitrite Urine Bilirubin Urine Urobilinogen Ur Leukocyte Esterase Urine RBC Urine WBC Ur Epithelial Cells Urine Crystals Urine Bacteria Urine Casts Urine Mucus Ur Culture Indicated? Urine Glucose Salicylates < 2.8 Urine Opiates Screen Urine Methadone Screen Acetaminophen < 2 Ur Barbiturates Screen Ur Tricyclics Screen Ur Amphetamines Screen U Benzodiazepines Scrn Urine Cocaine Screen Ur THC Screen Ethyl Alcohol < 3.0 COVID-19 Source SARS-CoV-2 (PCR) Add-On Test Request 12/21/21 12/21/21 12/21/21 19:10 19:10 19:10 WBC 3.99 L RBC 3.69 L Hgb 11.6 L Hct 36.7 L MCV 100 H MCH 31.4 MCHC 31.6 L RDW 16.7 H Plt Count 105 L MPV 9.9 Immature Gran % 0.3 Neutrophils % 68.1 Lymphocytes % 16.0 Monocytes % 14.3 Eosinophils % 0.8 Basophils % 0.5 Nucleated RBC % 0.0 Absolute Neutrophils 2.72 Absolute Lymphocytes 0.64 L Absolute Monocytes 0.57 Absolute Eosinophils 0.03 Absolute Basophils 0.02 ESR D-Dimer Sodium Potassium Chloride Carbon Dioxide Anion Gap BUN Creatinine Estimated GFR/1.73 m2 Glucose Calcium Total Bilirubin AST ALT Alkaline Phosphatase Creatine Kinase 301 C-Reactive Protein Total Protein Albumin Lipase 125 TSH Free T4 Urine Color Urine Clarity Urine pH Ur Specific [place] Urine Protein Urine Ketones Urine Blood Urine Nitrite Urine Bilirubin Urine Urobilinogen Ur Leukocyte Esterase Urine RBC Urine WBC Ur Epithelial Cells Urine Crystals Urine Bacteria Urine Casts Urine Mucus Ur Culture Indicated? Urine Glucose Salicylates Urine Opiates Screen Urine Methadone Screen Acetaminophen Ur Barbiturates Screen Ur Tricyclics Screen Ur Amphetamines Screen U Benzodiazepines Scrn Urine Cocaine Screen Ur THC Screen Ethyl Alcohol COVID-19 Source SARS-CoV-2 (PCR) Add-On Test Request 12/21/21 12/21/21 12/21/21 19:10 19:10 22:02 WBC RBC Hgb Hct MCV MCH MCHC RDW Plt Count MPV Immature Gran % Neutrophils % Lymphocytes % Monocytes % Eosinophils % Basophils % Nucleated RBC % Absolute Neutrophils Absolute Lymphocytes Absolute Monocytes Absolute Eosinophils Absolute Basophils ESR 8 D-Dimer Sodium Potassium Chloride Carbon Dioxide Anion Gap BUN Creatinine Estimated GFR/1.73 m2 Glucose Calcium Total Bilirubin AST ALT Alkaline Phosphatase Creatine Kinase C-Reactive Protein 3.09 H Total Protein Albumin Lipase TSH Free T4 Urine Color Urine Clarity Urine pH Ur Specific [place] Urine Protein Urine Ketones Urine Blood Urine Nitrite Urine Bilirubin Urine Urobilinogen Ur Leukocyte Esterase Urine RBC Urine WBC Ur Epithelial Cells Urine Crystals Urine Bacteria Urine Casts Urine Mucus Ur Culture Indicated? Urine Glucose Salicylates Urine Opiates Screen Urine Methadone Screen Acetaminophen Ur Barbiturates Screen Ur Tricyclics Screen Ur Amphetamines Screen U Benzodiazepines Scrn Urine Cocaine Screen Ur THC Screen Ethyl Alcohol COVID-19 Source Nasal/Nares SARS-CoV-2 (PCR) Negative Add-On Test Request 12/21/21 12/21/21 12/21/21 23:02 23:08 23:08 WBC RBC Hgb Hct MCV MCH MCHC RDW Plt Count MPV Immature Gran % Neutrophils % Lymphocytes % Monocytes % Eosinophils % Basophils % Nucleated RBC % Absolute Neutrophils Absolute Lymphocytes Absolute Monocytes Absolute Eosinophils Absolute Basophils ESR D-Dimer Sodium Potassium Chloride Carbon Dioxide Anion Gap BUN Creatinine Estimated GFR/1.73 m2 Glucose Calcium Total Bilirubin AST ALT Alkaline Phosphatase Creatine Kinase C-Reactive Protein Total Protein Albumin Lipase TSH Free T4 Urine Color Yellow Urine Clarity Sl Cloudy Urine pH 5.5 Ur Specific [place] 1.020 Urine Protein 30 H Urine Ketones Trace H Urine Blood Small H Urine Nitrite Positive H Urine Bilirubin Negative Urine Urobilinogen 1.0 H Ur Leukocyte Esterase Negative Urine RBC 3-5 H Urine WBC 0-2 Ur Epithelial Cells Negative Urine Crystals Few Calcium Oxalate Urine Bacteria Many Urine Casts Negative Urine Mucus Negative Ur Culture Indicated? Yes Urine Glucose Negative Salicylates Urine Opiates Screen Negative Urine Methadone Screen Negative Acetaminophen Ur Barbiturates Screen Negative Ur Tricyclics Screen Negative Ur Amphetamines Screen Negative U Benzodiazepines Scrn Negative Urine Cocaine Screen Negative Ur THC Screen Negative Ethyl Alcohol COVID-19 Source SARS-CoV-2 (PCR) Add-On Test Request DONE Imaging Imaging Studies: CT scan of the cervical spine and the chest abdomen and pelvis including the right shoulder was reviewed. This demonstrates a comminuted fracture about the right proximal humerus which appears to be pathologic in nature. There is sig nificant peripheral enhancement throughout this area with small comminuted fragments and what appears to be areas of lysis and absent bone. There is notable displacement anteriorly with some varus angulation of the humeral head. Throughout the spine there are multiple areas of concern. There appears to be a lytic type lesion surrounded by some increasing sclerosis at T1. Additionally at T3 there is a significant compression fracture of greater than 50% with increasing sclerosis of the vertebral body. At T7 once again there is a more moderate appearing compression fracture with some areas of sclerosis and lysis. Each of these vertebral bodies has changes which appear somewhat abnormal if consider just a Schmorl's node or degenerative cyst. In the lumbar spine there does appear to be a more atypical Schmorl's type node at L1. There is some cystic changes within the L4 vertebral body which also has some surrounding areas of sclerosis concerning for may be mixed disease process. There is also compression fracture of about 40% seen at L1 additionally, there is an area of lysis seen within the L5 vertebral body. X-ray of the right shoulder shows a pathologic appearing fracture of the surgical neck region of the humerus with what appears to be some loss of bone with small bony pieces and questionable calcification seen within the soft tissues with notable deformity. MRI of the right shoulder without contrast was also reviewed which shows a complex fracture about the right proximal humerus. There are multiple small fragments seen in the soft tissues. There appears to be a mass and fluid was extends all within the subcutaneous surface anteriorly. Abnormal bone marrow signal seen within the proximal third humeral shaft with some abnormality within the humeral head and humeral shaft region. I am unable to text the true primary area to determine what this may represent. However does appear to be a mixed process shows similarities both of dense muscle tissue as well as fat. There is a completely torn subscapularis tendon, transected biceps tendon, torn suprasp inatus tendon and some mild posterior subluxation of the humeral head.
[2021-12-22] MEDS: LORazepam 1 MG TAB PO (07:29)
[2021-12-22 07:30] LABS: Anion Gap 7.7 mmol/L (3-11); BUN 14 mg/dL (7-18); CO2 29.3 mmol/L (21.0-32.0); CREATININE 0.5 mg/dL (0.70-1.30); Calcium 8.1 mg/dL (8.5-10.1); Chloride 111 mmol/L (98-107); Glucose 70 mg/dL (74-106); Potassium 3.8 mmol/L (3.5-5.1); Sodium 148 mmol/L (136-145)
[2021-12-22] MEDS: LORazepam 1 MG TAB 2 MG PO (09:30)
--- NOTE | 2021-12-22 12:31 | ED.PROG_ITS ---
Date of service: 12/22/21 Time of Service: 12:32 Medical Decision Making 66 yo male signed out to me after he had ct head/cspine/chest/abdomen pelvis and found to have cirrhosis, pathologic fracture of his right humerus, and lytic lesions in the spine. He also had nitrite positive urine. Dr. Manjarrez consulted and recommended sling and further workup for malignancy. Discussed with Dr. Machado who did not feel this was acute cholecystitis with provided history. Pt has minimal tendernesss in the ruq on my exam. He is somnolent but will say 1 to 2 words when painful stimuli is applied, did have medications given orally to assist with MRI. Do not feel he can be medically cleared for psychiatric placement, discussed with Dr. Moran who [facility] is at capacity and can't take any medical transfers currently. Will discuss with [facility] about transfer. [facility] unable to take any transfers currently. His ammonia elevated in the 60s, lactulose orderd. Pt stable, when he does fall asleep his BP does drop below 90 systolic, awakens easily. When asked where he is [place]. Discussed with Dr. Moran who accepts for admission Differential Diagnosis Differential Diagnosis: urosepsis, cirrhosis, cholecystitis, cancer Sign Out Sign Out Data: Sign Out Comment: Ortho eval in AM. Mental health eval in am. Patient here on EE. Telepsych consult pending. Reassess abdomen in AM and consider RUQ US. Pharmacy to be contacted in AM for med rec. Home meds should be reinitiated as appropriate. Last updated by Pankaj Montenegro MD at 12/21/21 23:26 Sign Out Comment: pending psych consult, ortho consult and repeat labs/imaging on EE. Last updated by Ramone Belle MD at 12/22/21 07:44 Discharge Plan Disposition Patient Disposition: [facility] INPATIENT Condition: Serious Discharge Details Clinical Impression: Closed right humeral fracture, Psychosis, Cirrhosis, Cholelithiasis, Acute UTI Primary Care Provider: None,None ED Provider: Douglas Suggs Home Meds and New Rx's Prescriptions: No Action trazodone 50 mg Tablet 50 mg PO DAILY 0RF aspirin 325 mg Tablet 325 mg PO DAILY 0RF haloperidol decanoate [Haldol Decanoate] 100 mg/mL Solution 200 mg IM Q3W 0RF simvastatin 10 mg Tablet 10 mg PO DAILY 0RF clopidogrel [Plavix] 75 mg Tablet 75 mg PO DAILY 0RF benztropine 1 mg Tablet 1 mg PO BID 0RF furosemide 20 mg Tablet 20 mg PO QAM 0RF albuterol 90 mcg/actuation Aerosol 90 mcg INHALATION TID PRN0RF propranolol 20 mg Tablet 20 mg PO DAILY 0RF
[2021-12-22 12:53] LABS: Ammonia 62 umol/L (11-32)
--- NOTE | 2021-12-22 13:30 | CMSP_ITS ---
- If Service Date Differs Date of service: 12/22/21 Time of Service: 13:30 Care Management Safety Plan Status: Involuntary - Reason for Wait Reason for Wait: Medical Clearance INVOLUNTARY FOR INPATIENT PSYCHIATRIC STABILIZATION. Safety plan has been established to meet the needs of the patient, and consideration of the care team, to adhere to patient goals, identify restrictions based on behavioral status, address nutrition, and determine allowed personal belongings, tools for hygiene and personal care. Determine level of activity including ambulation, level of supervision, visitors, and determine privileges based on behaviors and level of engagement by pt. SAFETY PLAN: 1. Will remain on SI/HI precautions. In Paper Clothes 2. Will remain in room under direct supervision of one-on-one staff at all times provided by [employer], TURBINE ATTENDANT, FERTILIZER PROCESSING SUPERVISOR family service counselor. 3. May have paper cups, plates, finger foods as well as a cardboard spoon with which to eat meals. 4. Follow [facility] Management of the Admitted Behavioral Health Patient policy. 5. Comfort bath system only. 6. No personal belongings. 7. Visitors: Per [facility] visitor policy and at RN discretion. 8. Activities: Soft cart items, television and other activities based on behavior and at RN discretion. 9. Bathroom privileges with escort in the ED; bathroom available in room without limitation on M/S. 10. Phone: Limited to legal contacts. 11. Due to INVOLUNTARY status, patient is being held at [facility] by the Department of Mental Health ([facility]) until 2nd certification by [facility] Psychiatrist can be performed (within 24 hours). Staff will provide de-escalation support (CPI) as needed. If patient wishes to leave [facility], staff will contact [facility] Crisis Screener ([phone]) and On-Call Electrical Linesworker ([phone]) as soon as possible. In the event of elopement, notify [place] [employer] ([phone]). Patient is currently involuntarily at [facility]. [facility] Frontline Ship Liner will reassess patient daily and will seek placement once patient is medically cleared. Please contact the Superintendent Terminal Electrical Linesworker ([phone]) for any needed changes to Safety Plan. Safety plan has been provided to interdepartmental care team. Patient will be transported by [employer] at time of discharge.
--- NOTE | 2021-12-22 13:30 | PDOC.CMSAFED ---
- If Service Date Differs Date of service: 12/22/21 Time of Service: 13:30 Care Management Safety Plan Status: Involuntary - Reason for Wait Reason for Wait: Medical Clearance INVOLUNTARY FOR INPATIENT PSYCHIATRIC STABILIZATION. Safety plan has been established to meet the needs of the patient, and consideration of the care team, to adhere to patient goals, identify restrictions based on behavioral status, address nutrition, and determine allowed personal belongings, tools for hygiene and personal care. Determine level of activity including ambulation, level of supervision, visitors, and determine privileges based on behaviors and level of engagement by pt. SAFETY PLAN: 1. Will remain on SI/HI precautions. In Paper Clothes 2. Will remain in room under direct supervision of one-on-one staff at all times provided by [employer]PSO, WATCH DIAL PRINTER, CLINICAL DATA ABSTRACTOR printing press operator. 3. May have paper cups, plates, finger foods as well as a cardboard spoon with which to eat meals. 4. Follow [facility] Management of the Admitted Behavioral Health Patient policy. 5. Comfort bath system only. 6. No personal belongings. 7. Visitors: Per [facility] visitor policy and at RN discretion. 8. Activities: Soft cart items, television and other activities based on behavior and at RN discretion. 9. Bathroom privileges with escort in the ED; bathroom available in room without limitation on M/S. 10. Phone: Limited to legal contacts. 11. Due to INVOLUNTARY status, patient is being held at [facility] by the Department of Mental Health ([facility]) until 2nd certification by [facility] Psychiatrist can be performed (within 24 hours). Staff will provide de-escalation support (CPI) as needed. If patient wishes to leave [facility], staff will contact [facility] Crisis Screener ([phone]) and On-Call Clerical Office Worker ([phone]) as soon as possible. In the event of elopement, notify [place] [employer] ([phone]). Patient is currently involuntarily at [facility]. [facility] Frontline Splicing Machine Operator will reassess patient daily and will seek placement once patient is medically cleared. Please contact the Ticket Printer Clerical Office Worker ([phone]) for any needed changes to Safety Plan. Safety plan has been provided to interdepartmental care team. Patient will be transported by [facility] at time of discharge.
[2021-12-22] MEDS: Lactulose 20 GM/30 ML CUP PO ×2 (13:34→21:59)
--- NOTE | 2021-12-22 14:07 | INITIAL_ITS ---
- If Service Date Differs Date of service: 12/22/21 Time of Service: 14:07 Care Management Initial Assess REASON FOR HOSPITALIZATION:: Hepatic encephalopathy, UTI, pathological R humeral fracture. PAST MEDICAL HISTORY/PAST SURGICAL HISTORY:: All Active Problems: Suicidal ideation (Acute), Paranoid delusion (Acute),. Anemia, iron deficiency (Acute), Pancytopenia (Acute), Hypothyroidism (Chronic), Closed right humeral fracture (Acute), Psychosis (Acute), Cirrhosis (Acute), and Cholelithiasis (Acute). Medical History: Anemia and Schizophrenia. No surgical history noted in the chart. PREVIOUS FUNCTIONAL STATUS/SOCIAL/FAMILY SUPPORTS:: Ramone lives alone in an apartment in [facility]. He receives services through the SENIOR CONSTRUCTION ESTIMATOR Program at [facility]. Ramone is a and receives his medical care through the [place]. He arrives at [facility] on a Warrant for Emergency Examination due to agitation, psychosis, and refusal of treatment. CURRENT FUNCTIONAL STATUS:: Ramone is lying in bed when CM meets with him. He does not answer most questions asked of him or provides answers that are unrelated to the question asked. He appears confused. When asked where he is, he replies he is at home. CM will continue to follow. ADVANCE DIRECTIVES:: None on file. Has patient been provided with info about the portal/API?: No Did the patient sign up for the portal?: No CODE STATUS:: Full Code INSURANCE COVERAGE / FINANCIAL ISSUES:: Medicare and [employer] ([employer]). CURRENT HOME/COMMUNITY SERVICES/EQUIPMENT:: Ramone has the support of the SENIOR CONSTRUCTION ESTIMATOR Program at [facility]. [facility]. POTENTIAL DISCHARGE NEEDS:: Ramone will potentially need a psychiatric hospitalization prior to returning to the community. PATIENT/FAMILY EDUCATION NEEDS:: Review of discharge instructions and expectations. ANTICIPATED BARRIERS TO DISCHARGE:: No barriers anticipated at this time. TRANSPORTATION:: Transport to a psych facility will be via transport team coordinated by [facility]. PLAN:: Ramone will remain at [facility] until he is medically stable, at which time [facility] will resume seeking a psychiatric placement for him. Transport to a psych facility will be via a transport team coordinated by [facility] when ready. CM will continue to support Ramone and any discharge planning needs.
--- NOTE | 2021-12-22 14:27 | NUR.NOTE ---
1259 Per [place] admission, there are no beds available for transfer. Maryana Kelly
[2021-12-22] MEDS: Midodrine 2.5 MG TAB PO ×2 (15:58→19:53)
--- NOTE | 2021-12-22 16:20 | HPE_ITS ---
Date of service: 12/22/21 Time of Service: 16:21 Assessment and Plan Assessment and plan (1) Pathological fracture of humerus: Status: Acute Assessment and plan: Ideally would be evaluated by an oncologic orthopedist. At this point, the patient is EE'ed - and I believe that means that he cannot cross state lines for hospitalization. [facility] does not have capacity to accept patients in transfer. DDx: sarcoma, plasmacytoma,lypmhoma, metastatic disease. Because of co-existence of lytic lesions on spinal imaging, will obtain studies to r/o multiple myeloma, prostate ca. Sling for comfort recommended by orthopedics. (2) Lytic lesion of bone on x-ray: Status: Acute Assessment and plan: As above (3) Acute UTI: Status: Acute Assessment and plan: Due to E. Coli, Present on admission. No evidence of obstructive uropathy or stones on CT. However, does have a distended bladder on CT. It is difficult to assess PVRs by bladder scans in patients with ascites, but we can try. Continue ceftriaxone. Await sensitivities. (4) Hypotension: Status: Acute Assessment and plan: Expected in setting of cirrhosis and asytmptomatic at this time - however, did the patient get dizzy from hypotension and fall at home? Check orthostatics, however, independent of orthostatic results - I think a trial of midodrine is warranted. (5) Hyperammonemia: Status: Acute Assessment and plan: No clinical hepatic encephalopathy by the time that I saw the patient, but he had just had a BM after receiving lactulose earlier. Continue lactulose. Monitor for evidence of hepatic encephalopathy. (6) Psychosis: Status: Acute Assessment and plan: H/o schizophrenia, per prior records. Will treat medical issues that could be confounding the picture and administer zyprexa 15 mg PO QHS. (7) Cirrhosis: Assessment and plan: Chronic, alcoholic. with evidence of portal hypertension, ascites and edema, hyperammonemia, pancytopenia. The patient mentioned a GI bleed in the past. Will avoid IVF now that the BPs have come up. Will clarify the patient's actual medications - [facility] Would ideally be on a beta teddy. 2 gram sodium diet. (8) Pancytopenia: Assessment and plan: Monitor for bleeding. Avoid chemical DVT ppx. (9) Cholelithiasis: Status: Chronic Assessment and plan: No evidence of cholecystitis. No further workup necessary. (10) Dehydration: Status: Acute Assessment and plan: IVF now d/c'ed as the patient is taking good PO and BPs have come up. Encourage PO liquids. (11) Discharge planning issues: Status: Acute Assessment and plan: Full code. Under EE. (12) DVT prophylaxis: Status: Acute Assessment and plan: SCDs. Avoid chemical DVT ppx in this patient who has evidence of cirrhosis and portal hypertension and states has had a GI bleed in the past. History of Present Illness History of Present Illness Chief Complaint: Patient was brought to the ED by ambulance for psychosis Narrative: Mr Meeks is a 66 year old male with PMHx of schizophrenia, as well as h/o alcoholic cirrhosis, pancytopenia, hypothyroidism, who was brought to [facility] ED yesterday by ambulance after a well-visit to his residence, where he had locked himself for an extended period of time, revealed self-neglect and a patient in an acute psychotic state. The patient was EE'ed in the ED. There was evidence of bruising and swelling on his R arm as well as an ecchymosis on his abdomen/back, and imaging was obtained to rule out injury or a surgical process. CT of the abdomen and pelvis revealed cirrhosis, portal hypertension, distended gallbladder with wall thickening, but clinically the patient did not have any RUQ pain, and it was the surgical opinion that these findings were due to cirrhosis/ascites. XR of his R shoulder showed a displaced proximal humeral fx. This fracture looked to be pathologic on CT of the chest. The patient was also noted to have lytic lesions in the spine, suspicious for malignancy/mets. The patient was also found to have a UTI by UA. He was initiated on ceftriaxone. There was no evidence of obstructive uropathy or stones on CT. While in the ED, the patient has been persistently hypotensive to the 80s-90s systolic. Of this, he is asymptomatic He as initiated on IVF. His latest BP is 104/71. His ammonia was elevated in the ED, and he was initiated on lactulose. He was evaluated by psychiatry, who was in agreement with high dose thiamine that was being initiated - due to h/o drinking, although the patient states he had not drunk in 3 months. He was also recommended to be started on zyprexa 15 mg PO qhs, and to be continued on lactulose. Per orthopedics, the patient would benefit from being in a facility with an oncologic orthopedic surgeon for further workup, since he would be unlikely to follow up on his own. Because there are no beds available at the [place], hospitalist admission at our facility was requested until a plan for such follow up can be made. Reviewing his medications, the patient appears to be prescribed aspirin/plavix - I am unclear what the indication is at this time. We are obtaining his medical records from the [place]. Review of Systems Narrative: The patient specifically denies pain anywhere except his B arms and throughout his spine. He endorses feeling short of breath. Denies chest pain. It is difficult to fully assess his ROS due to his actively psychotic state. All systems reviewed & are unremarkable except as noted in HPI and below PFSH All Active Problems (Updated 12/22/21 @ 20:22 by Yue Moran MD) Hypotension (Acute) Dehydration (Acute) Discharge planning issues (Acute) DVT prophylaxis (Acute) Hyperammonemia (Acute) Degenerative disc disease, cervical (Acute) Lytic lesion of bone on x-ray (Acute) Pathological fracture of humerus (Acute) Suicidal ideation (Acute) Paranoid delusion (Acute) Anemia, iron deficiency (Acute) Closed right humeral fracture (Acute) Psychosis (Acute) Cholelithiasis (Chronic) Acute UTI (Acute) Medical History (Updated 12/22/21 @ 20:22 by Yue Moran MD) Anemia Cirrhosis Hypothyroidism Pancytopenia Portal hypertension Schizophrenia Surgical History (Updated 12/22/21 @ 19:59 by Yue Moran MD) Surgical history unknown Family History (Updated 12/22/21 @ 19:59 by Yue Moran MD) Other Family history unobtainable due to patient's condition Social History Smoking/Tobacco Use Status: Former Tobacco Use Smoking risk assessment performed?: Yes Alcohol Intake: former Drug use: Never Substance use type: former substance user Do you feel safe at home: Yes Do you feel safe in your relationship?: Yes Meds Allergies and Home Medications Allergies Allergy/AdvReac Type Severity Reaction Status Date / Time No Known Allergies Allergy Unverified 01/03/21 21:24 Home Medications Medication Instructions Recorded Confirmed Type albuterol 90 mcg/actuation aerosol 90 mcg INHALATION TID PRN 01/03/21 01/03/21 History inhaler aspirin 325 mg tablet 325 mg PO DAILY 01/03/21 01/03/21 History benztropine 1 mg tablet 1 mg PO BID 01/03/21 01/03/21 History clopidogrel 75 mg tablet (Plavix) 75 mg PO DAILY 01/03/21 01/03/21 History furosemide 20 mg tablet 20 mg PO QAM 01/03/21 01/03/21 History haloperidol decanoate 100 mg/mL 200 mg IM Q3W 01/03/21 01/03/21 History intramuscular solution (Haldol Decanoate) propranolol 20 mg tablet 20 mg PO DAILY 01/03/21 01/03/21 History simvastatin 10 mg tablet 10 mg PO DAILY 01/03/21 01/03/21 History trazodone 50 mg tablet 50 mg PO DAILY 01/03/21 01/03/21 History Allergy/Medication Comments:: It is unclear if the patient was actually taking his medications at home. Exam Narrative Exam Narrative: General: Pleasant and cooperative yet psychotic middle-aged male who is A&Ox2 Neurological: A&Ox2, no focal deficits other than ataxic gait, no asterexis Psychiatric: Paranoid, tangential speech, but follows commands and answers simple questions appropriately Skin: Large ecchymosis on RUE (purplish) HEENT: Atraumatic, normocephalic, EOMI, dry MM, clear oropharynx, no submandibular or cervical lymphadenopathy, no goiter or JVD Cardiovascular: RRR, no m/r/g Lungs: CTAB Gastrointestinal: soft, mildly distended with ascites, nontender, + BS Genitourinary: deferred Extremities: +1 BLE edema, symmetric, no c/c. Results Imaging Additional studies: CT chest/abdomen/pelvis 12/21/21: 1.? Fracture of the proximal right humerus with question of underlying pathologic lesion. There is a large amount of abnormal enhancement of the soft tissues surrounding the fracture, suspicious for mass.? Indeterminate lytic lesions are seen in the spine, which could represent degenerative cysts versus metastatic lesions. 2.? Cirrhotic liver. 3.? Cholelithiasis.? No definite acute cholecystitis. CT head/c-spine; Head CT: No acute abnormality. C-spine CT: Degenerative changes, no acute abnormality. Lytic lesion T1, benign cyst versus metastasis. XR R shoulder: Displaced proximal humeral fracture Us abdomen: Limited exam.? Gallbladder wall thickening and small amount of pericholecystic fluid.? Single gallstone in the neck.? Findings could indicate acute cholecystitis or could be secondary to hypoproteinemia. MRI RUE: Pathologic fracture through the proximal humerus with marked displacement and comminution.? Large amount of surrounding fluid and infiltrati ve mass.? Evaluation of mass is limited without IV contrast. Full-thickness tears of the subscapularis and biceps tendons. Labs Result diagrams: 12/21/21 19:10 12/22/21 07:15 Labs: Laboratory Results - last 24 hr 12/21/21 12/21/21 12/21/21 11:21 19:10 19:10 WBC RBC Hgb Hct MCV MCH MCHC RDW Plt Count MPV Immature Gran % Neutrophils % Lymphocytes % Monocytes % Eosinophils % Basophils % Nucleated RBC % Absolute Neutrophils Absolute Lymphocytes Absolute Monocytes Absolute Eosinophils Absolute Basophils ESR D-Dimer 3526 H Sodium 151 H Potassium 3.3 L Chloride 112 H Carbon Dioxide 28.7 Anion Gap 10.3 BUN 21 H Creatinine 0.8 Estimated GFR/1.73 m2 >= 60.00 Glucose 85 Calcium 8.3 L Total Bilirubin 1.3 H AST 41 H ALT 41 Alkaline Phosphatase 253 H Ammonia Creatine Kinase C-Reactive Protein Total Protein 7.0 Albumin 3.0 L Lipase TSH 4.09 H Free T4 1.00 Urine Color Urine Clarity Urine pH Ur Specific [place] Urine Protein Urine Ketones Urine Blood Urine Nitrite Urine Bilirubin Urine Urobilinogen Ur Leukocyte Esterase Urine RBC Urine WBC Ur Epithelial Cells Urine Crystals Urine Bacteria Urine Casts Urine Mucus Ur Culture Indicated? Urine Glucose Salicylates < 2.8 Urine Opiates Screen Urine Methadone Screen Acetaminophen < 2 Ur Barbiturates Screen Ur Tricyclics Screen Ur Amphetamines Screen U Benzodiazepines Scrn Urine Cocaine Screen Ur THC Screen Ethyl Alcohol < 3.0 COVID-19 Source SARS-CoV-2 (PCR) Add-On Test Request 12/21/21 12/21/21 12/21/21 19:10 19:10 19:10 WBC 3.99 L RBC 3.69 L Hgb 11.6 L Hct 36.7 L MCV 100 H MCH 31.4 MCHC 31.6 L RDW 16.7 H Plt Count 105 L MPV 9.9 Immature Gran % 0.3 Neutrophils % 68.1 Lymphocytes % 16.0 Monocytes % 14.3 Eosinophils % 0.8 Basophils % 0.5 Nucleated RBC % 0.0 Absolute Neutrophils 2.72 Absolute Lymphocytes 0.64 L Absolute Monocytes 0.57 Absolute Eosinophils 0.03 Absolute Basophils 0.02 ESR D-Dimer Sodium Potassium Chloride Carbon Dioxide Anion Gap BUN Creatinine Estimated GFR/1.73 m2 Glucose Calcium Total Bilirubin AST ALT Alkaline Phosphatase Ammonia Creatine Kinase 301 C-Reactive Protein Total Protein Albumin Lipase 125 TSH Free T4 Urine Color Urine Clarity Urine pH Ur Specific [place] Urine Protein Urine Ketones Urine Blood Urine Nitrite Urine Bilirubin Urine Urobilinogen Ur Leukocyte Esterase Urine RBC Urine WBC Ur Epithelial Cells Urine Crystals Urine Bacteria Urine Casts Urine Mucus Ur Culture Indicated? Urine Glucose Salicylates Urine Opiates Screen Urine Methadone Screen Acetaminophen Ur Barbiturates Screen Ur Tricyclics Screen Ur Amphetamines Screen U Benzodiazepines Scrn Urine Cocaine Screen Ur THC Screen Ethyl Alcohol COVID-19 Source SARS-CoV-2 (PCR) Add-On Test Request 12/21/21 12/21/21 12/21/21 19:10 19:10 22:02 WBC RBC Hgb Hct MCV MCH MCHC RDW Plt Count MPV Immature Gran % Neutrophils % Lymphocytes % Monocytes % Eosinophils % Basophils % Nucleated RBC % Absolute Neutrophils Absolute Lymphocytes Absolute Monocytes Absolute Eosinophils Absolute Basophils ESR 8 D-Dimer Sodium Potassium Chloride Carbon Dioxide Anion Gap BUN Creatinine Estimated GFR/1.73 m2 Glucose Calcium Total Bilirubin AST ALT Alkaline Phosphatase Ammonia Creatine Kinase C-Reactive Protein 3.09 H Total Protein Albumin Lipase TSH Free T4 Urine Color Urine Clarity Urine pH Ur Specific [place] Urine Protein Urine Ketones Urine Blood Urine Nitrite Urine Bilirubin Urine Urobilinogen Ur Leukocyte Esterase Urine RBC Urine WBC Ur Epithelial Cells Urine Crystals Urine Bacteria Urine Casts Urine Mucus Ur Culture Indicated? Urine Glucose Salicylates Urine Opiates Screen Urine Methadone Screen Acetaminophen Ur Barbiturates Screen Ur Tricyclics Screen Ur Amphetamines Screen U Benzodiazepines Scrn Urine Cocaine Screen Ur THC Screen Ethyl Alcohol COVID-19 Source Nasal/Nares SARS-CoV-2 (PCR) Negative Add-On Test Request 12/21/21 12/21/21 12/21/21 23:02 23:08 23:08 WBC RBC Hgb Hct MCV MCH MCHC RDW Plt Count MPV Immature Gran % Neutrophils % Lymphocytes % Monocytes % Eosinophils % Basophils % Nucleated RBC % Absolute Neutrophils Absolute Lymphocytes Absolute Monocytes Absolute Eosinophils Absolute Basophils ESR D-Dimer Sodium Potassium Chloride Carbon Dioxide Anion Gap BUN Creatinine Estimated GFR/1.73 m2 Glucose Calcium Total Bilirubin AST ALT Alkaline Phosphatase Ammonia Creatine Kinase C-Reactive Protein Total Protein Albumin Lipase TSH Free T4 Urine Color Yellow Urine Clarity Sl Cloudy Urine pH 5.5 Ur Specific [place] 1.020 Urine Protein 30 H Urine Ketones Trace H Urine Blood Small H Urine Nitrite Positive H Urine Bilirubin Negative Urine Urobilinogen 1.0 H Ur Leukocyte Esterase Negative Urine RBC 3-5 H Urine WBC 0-2 Ur Epithelial Cells Negative Urine Crystals Few Calcium Oxalate Urine Bacteria Many Urine Casts Negative Urine Mucus Negative Ur Culture Indicated? Yes Urine Glucose Negative Salicylates Urine Opiates Screen Negative Urine Methadone Screen Negative Acetaminophen Ur Barbiturates Screen Negative Ur Tricyclics Screen Negative Ur Amphetamines Screen Negative U Benzodiazepines Scrn Negative Urine Cocaine Screen Negative Ur THC Screen Negative Ethyl Alcohol COVID-19 Source SARS-CoV-2 (PCR) Add-On Test Request DONE 12/22/21 12/22/21 07:15 12:43 WBC RBC Hgb Hct MCV MCH MCHC RDW Plt Count MPV Immature Gran % Neutrophils % Lymphocytes % Monocytes % Eosinophils % Basophils % Nucleated RBC % Absolute Neutrophils Absolute Lymphocytes Absolute Monocytes Absolute Eosinophils Absolute Basophils ESR D-Dimer Sodium 148 H Potassium 3.8 Chloride 111 H Carbon Dioxide 29.3 Anion Gap 7.7 BUN 14 Creatinine 0.5 L Estimated GFR/1.73 m2 >= 60.00 Glucose 70 L Calcium 8.1 L Total Bilirubin AST ALT Alkaline Phosphatase Ammonia 62 H Creatine Kinase C-Reactive Protein Total Protein Albumin Lipase TSH Free T4 Urine Color Urine Clarity Urine pH Ur Specific [place] Urine Protein Urine Ketones Urine Blood Urine Nitrite Urine Bilirubin Urine Urobilinogen Ur Leukocyte Esterase Urine RBC Urine WBC Ur Epithelial Cells Urine Crystals Urine Bacteria Urine Casts Urine Mucus Ur Culture Indicated? Urine Glucose Salicylates Urine Opiates Screen Urine Methadone Screen Acetaminophen Ur Barbiturates Screen Ur Tricyclics Screen Ur Amphetamines Screen U Benzodiazepines Scrn Urine Cocaine Screen Ur THC Screen Ethyl Alcohol COVID-19 Source SARS-CoV-2 (PCR) Add-On Test Request Last Vital Signs Temp 36.7 C 12/22/21 11:16 Pulse 85 12/22/21 13:39 BP 79/59 L 12/22/21 16:04 Pulse Ox 95 12/22/21 13:40
--- NOTE | 2021-12-22 16:39 | PSYCO_ITS ---
Date of service: 12/22/21 Time of Service: 16:46 History of Present Illness History of Present Illness Chief Complaint: Someone has a grudge against me Narrative: Dr. Otero requested 4 hour telepsych consultation to evaluate altered mental status and recommend management. Seen through telemdicine with patient in [facility] ED and ID confirmed by staff. PAtient speech is rambling and completely incoherent. He is unable to provide any coherent responses to questions. What is noted from ED workup is cirrhosis, elevated ammonia levels. Also noted is an arm fracture and lytic lesions in his spine suggestive of metastatic disease. The remainder of imaging studies were unremarkable. He has a history of olanzapine treatment is past. No other psychistric history is obtainable. Assessment and Plan Assessment and plan (1) Psychosis: Status: Acute Assessment and plan: Acute altered mental status has a number of potential etiologies. The first is acute psychosis due to treatment non-adherence. A second is Wernicke's encephalopathy due to what is assumed to be chronic alcohol abuse. The third may be hepatic encephalopathy due to elevated ammonia. Plan: Restart olanzapine 15 mg HS Continue lactulose for elevated ammonia Thimain supplementation Follow up PRN PFSH All Active Problems (Updated 12/22/21 @ 16:09 by Simon Manjarrez MD) Degenerative disc disease, cervical (Acute) Lytic lesion of bone on x-ray (Acute) Pathological fracture of humerus (Acute) Suicidal ideation (Acute) Paranoid delusion (Acute) Anemia, iron deficiency (Acute) Pancytopenia (Acute) Hypothyroidism (Chronic) Closed right humeral fracture (Acute) Psychosis (Acute) Cirrhosis (Acute) Cholelithiasis (Acute) Acute UTI (Acute) Medical History Anemia Schizophrenia Social History Smoking/Tobacco Use Status: Former Tobacco Use Smoking risk assessment performed?: Yes Alcohol Intake: former Drug use: Never Substance use type: former substance user Do you feel safe at home: Yes Do you feel safe in your relationship?: Yes Exam Narrative Exam Narrative: Dressed in hospital garb. Pleasant and animated. Speech is incoherent and nonsensical. Thought process is disorganized. Attention and concentraion are severely impaired. Insight and judgment are imapired. Results Last Vital Signs Temp 36.7 C 12/22/21 11:16 Pulse 85 12/22/21 13:39 BP 79/59 L 12/22/21 16:04 Pulse Ox 95 12/22/21 13:40 Labs Result diagrams: 12/21/21 19:10 12/22/21 07:15 Labs: Laboratory Results - last 24 hr 12/21/21 12/21/21 12/21/21 11:21 19:10 19:10 WBC RBC Hgb Hct MCV MCH MCHC RDW Plt Count MPV Immature Gran % Neutrophils % Lymphocytes % Monocytes % Eosinophils % Basophils % Nucleated RBC % Absolute Neutrophils Absolute Lymphocytes Absolute Monocytes Absolute Eosinophils Absolute Basophils ESR D-Dimer 3526 H Sodium 151 H Potassium 3.3 L Chloride 112 H Carbon Dioxide 28.7 Anion Gap 10.3 BUN 21 H Creatinine 0.8 Estimated GFR/1.73 m2 >= 60.00 Glucose 85 Calcium 8.3 L Total Bilirubin 1.3 H AST 41 H ALT 41 Alkaline Phosphatase 253 H Ammonia Creatine Kinase C-Reactive Protein Total Protein 7.0 Albumin 3.0 L Lipase TSH 4.09 H Free T4 1.00 Urine Color Urine Clarity Urine pH Ur Specific [place] Urine Protein Urine Ketones Urine Blood Urine Nitrite Urine Bilirubin Urine Urobilinogen Ur Leukocyte Esterase Urine RBC Urine WBC Ur Epithelial Cells Urine Crystals Urine Bacteria Urine Casts Urine Mucus Ur Culture Indicated? Urine Glucose Salicylates < 2.8 Urine Opiates Screen Urine Methadone Screen Acetaminophen < 2 Ur Barbiturates Screen Ur Tricyclics Screen Ur Amphetamines Screen U Benzodiazepines Scrn Urine Cocaine Screen Ur THC Screen Ethyl Alcohol < 3.0 COVID-19 Source SARS-CoV-2 (PCR) Add-On Test Request 12/21/21 12/21/21 12/21/21 19:10 19:10 19:10 WBC 3.99 L RBC 3.69 L Hgb 11.6 L Hct 36.7 L MCV 100 H MCH 31.4 MCHC 31.6 L RDW 16.7 H Plt Count 105 L MPV 9.9 Immature Gran % 0.3 Neutrophils % 68.1 Lymphocytes % 16.0 Monocytes % 14.3 Eosinophils % 0.8 Basophils % 0.5 Nucleated RBC % 0.0 Absolute Neutrophils 2.72 Absolute Lymphocytes 0.64 L Absolute Monocytes 0.57 Absolute Eosinophils 0.03 Absolute Basophils 0.02 ESR D-Dimer Sodium Potassium Chloride Carbon Dioxide Anion Gap BUN Creatinine Estimated GFR/1.73 m2 Glucose Calcium Total Bilirubin AST ALT Alkaline Phosphatase Ammonia Creatine Kinase 301 C-Reactive Protein Total Protein Albumin Lipase 125 TSH Free T4 Urine Color Urine Clarity Urine pH Ur Specific [place] Urine Protein Urine Ketones Urine Blood Urine Nitrite Urine Bilirubin Urine Urobilinogen Ur Leukocyte Esterase Urine RBC Urine WBC Ur Epithelial Cells Urine Crystals Urine Bacteria Urine Casts Urine Mucus Ur Culture Indicated? Urine Glucose Salicylates Urine Opiates Screen Urine Methadone Screen Acetaminophen Ur Barbiturates Screen Ur Tricyclics Screen Ur Amphetamines Screen U Benzodiazepines Scrn Urine Cocaine Screen Ur THC Screen Ethyl Alcohol COVID-19 Source SARS-CoV-2 (PCR) Add-On Test Request 12/21/21 12/21/21 12/21/21 19:10 19:10 22:02 WBC RBC Hgb Hct MCV MCH MCHC RDW Plt Count MPV Immature Gran % Neutrophils % Lymphocytes % Monocytes % Eosinophils % Basophils % Nucleated RBC % Absolute Neutrophils Absolute Lymphocytes Absolute Monocytes Absolute Eosinophils Absolute Basophils ESR 8 D-Dimer Sodium Potassium Chloride Carbon Dioxide Anion Gap BUN Creatinine Estimated GFR/1.73 m2 Glucose Calcium Total Bilirubin AST ALT Alkaline Phosphatase Ammonia Creatine Kinase C-Reactive Protein 3.09 H Total Protein Albumin Lipase TSH Free T4 Urine Color Urine Clarity Urine pH Ur Specific [place] Urine Protein Urine Ketones Urine Blood Urine Nitrite Urine Bilirubin Urine Urobilinogen Ur Leukocyte Esterase Urine RBC Urine WBC Ur Epithelial Cells Urine Crystals Urine Bacteria Urine Casts Urine Mucus Ur Culture Indicated? Urine Glucose Salicylates Urine Opiates Screen Urine Methadone Screen Acetaminophen Ur Barbiturates Screen Ur Tricyclics Screen Ur Amphetamines Screen U Benzodiazepines Scrn Urine Cocaine Screen Ur THC Screen Ethyl Alcohol COVID-19 Source Nasal/Nares SARS-CoV-2 (PCR) Negative Add-On Test Request 12/21/21 12/21/21 12/21/21 23:02 23:08 23:08 WBC RBC Hgb Hct MCV MCH MCHC RDW Plt Count MPV Immature Gran % Neutrophils % Lymphocytes % Monocytes % Eosinophils % Basophils % Nucleated RBC % Absolute Neutrophils Absolute Lymphocytes Absolute Monocytes Absolute Eosinophils Absolute Basophils ESR D-Dimer Sodium Potassium Chloride Carbon Dioxide Anion Gap BUN Creatinine Estimated GFR/1.73 m2 Glucose Calcium Total Bilirubin AST ALT Alkaline Phosphatase Ammonia Creatine Kinase C-Reactive Protein Total Protein Albumin Lipase TSH Free T4 Urine Color Yellow Urine Clarity Sl Cloudy Urine pH 5.5 Ur Specific [place] 1.020 Urine Protein 30 H Urine Ketones Trace H Urine Blood Small H Urine Nitrite Positive H Urine Bilirubin Negative Urine Urobilinogen 1.0 H Ur Leukocyte Esterase Negative Urine RBC 3-5 H Urine WBC 0-2 Ur Epithelial Cells Negative Urine Crystals Few Calcium Oxalate Urine Bacteria Many Urine Casts Negative Urine Mucus Negative Ur Culture Indicated? Yes Urine Glucose Negative Salicylates Urine Opiates Screen Negative Urine Methadone Screen Negative Acetaminophen Ur Barbiturates Screen Negative Ur Tricyclics Screen Negative Ur Amphetamines Screen Negative U Benzodiazepines Scrn Negative Urine Cocaine Screen Negative Ur THC Screen Negative Ethyl Alcohol COVID-19 Source SARS-CoV-2 (PCR) Add-On Test Request DONE 12/22/21 12/22/21 07:15 12:43 WBC RBC Hgb Hct MCV MCH MCHC RDW Plt Count MPV Immature Gran % Neutrophils % Lymphocytes % Monocytes % Eosinophils % Basophils % Nucleated RBC % Absolute Neutrophils Absolute Lymphocytes Absolute Monocytes Absolute Eosinophils Absolute Basophils ESR D-Dimer Sodium 148 H Potassium 3.8 Chloride 111 H Carbon Dioxide 29.3 Anion Gap 7.7 BUN 14 Creatinine 0.5 L Estimated GFR/1.73 m2 >= 60.00 Glucose 70 L Calcium 8.1 L Total Bilirubin AST ALT Alkaline Phosphatase Ammonia 62 H Creatine Kinase C-Reactive Protein Total Protein Albumin Lipase TSH Free T4 Urine Color Urine Clarity Urine pH Ur Specific [place] Urine Protein Urine Ketones Urine Blood Urine Nitrite Urine Bilirubin Urine Urobilinogen Ur Leukocyte Esterase Urine RBC Urine WBC Ur Epithelial Cells Urine Crystals Urine Bacteria Urine Casts Urine Mucus Ur Culture Indicated? Urine Glucose Salicylates Urine Opiates Screen Urine Methadone Screen Acetaminophen Ur Barbiturates Screen Ur Tricyclics Screen Ur Amphetamines Screen U Benzodiazepines Scrn Urine Cocaine Screen Ur THC Screen Ethyl Alcohol COVID-19 Source SARS-CoV-2 (PCR) Add-On Test Request Consent/Time spent Consent/Time Spent The patient has consented to a virtual communication with the provider: No Visit performed via: Telehealth Time Spent (minutes): 60
[2021-12-22] MEDS: THIAMINE 500 MG in Normal Saline 100 ML 200 MG IVPB (17:50)
[2021-12-22] MEDS: OLANZapine 10 MG, OLANZapine 5 MG 15 MG PO (21:58)
[2021-12-23] VITALS (8 sets, daily range): BP systolic 80–188; BP diastolic 51–137; PULSE 80–101; RESP 16–20; TEMP 35.8–36.7; O2SAT 93–100
--- NOTE | 2021-12-23 | DI.CT_ITS ---
Exam(s) 3D RECON ON CT WORKSTATION EXAM: 3D RECON ON CT WORKSTATION CLINICAL HISTORY: RT HUMERUS FX - RECON PER DR SALGADO TECHNIQUE: COMPARISON: CT CT CHEST/ABD/PEL W from 12/21/2021 FINDINGS: Multiplanar/3D reconstructions were obtained from initial CT scanning. There is a severely comminute d fracture of the right humeral head and with numerous small bony fragments and marked displacement t he main fracture fragments. There is a suggestion of possible lytic lesion of the humeral head and n aureliano raising the possibility of pathologic fracture, although the degree of comminution makes it diffi cult to ascertain if there is a true bony mass. IMPRESSION: RADIATION DOSE DELIVERED: Total DLP !Error CTDIvol RADIATION OPTIMIZATION: All CT scans at this facility use at least one of these dose optimization te chniques: automated exposure control; mA and/or kV adjustment per patient size (includes targeted exa ms where dose is matched to clinical indication); or iterative reconstruction.
[2021-12-23] MEDS: Acetaminophen 325 MG TAB PO (00:19)
[2021-12-23] MEDS: Normal Saline Flush 10 ML SYR IVP ×2 (00:22→10:53)
[2021-12-23] MEDS: cefTRIAXone 1 GM/50 ML BAG IVPB ×2 (00:22→23:20)
[2021-12-23] MEDS: THIAMINE 500 MG in Normal Saline 100 ML 200 MG IVPB ×3 (01:22→20:04)
[2021-12-23 07:23] LABS: Abs Immature Grans 0.01 10^3/uL (0.0-0.06); Absolute Basophil Count 0.02 10^3/uL (0.0-0.2); Absolute Eosinophil Count 0.08 10^3/uL (0.0-0.7); Absolute Lymphocyte Count 0.83 10^3/uL (1.2-3.4); Absolute Monocyte Count 0.25 10^3/uL (0.1-0.8); Absolute Neutrophil Count 0.79 10^3/uL (1.2-6.7); HCT 34.5 % (40.0-50.0); HGB 10.8 g/dL (13.5-17.5); Immature Grans % 0.5; Lymphocytes % 41.9; MCH 30.8 pg (27.0-33.0); MCHC 31.3 % (32.0-36.0); MCV 98 fL (80-95); MPV 9.9 fL (8.0-11.0); Monocytes % 12.6; Platelet Count 111 10^3/uL (130-400); RBC 3.51 10^6/uL (4.36-5.78); RDW 16.5 % (11.8-14.1); RDW-SD 59.7 fL
[2021-12-23 07:24] LABS: INR 1.1 (0.9-1.1); Prothrombin Time 11.4 sec (9.3-11.0)
[2021-12-23 07:29] LABS: Ammonia 51 umol/L (11-32)
[2021-12-23 07:32] LABS: WBC 1.98 10^3/uL (4.4-10.8)
[2021-12-23 07:33] LABS: ALT 53 U/L (16-63); AST 69 U/L (15-37); Albumin 2.1 g/dL (3.4-5.0); Alkaline Phosphatase 234 U/L (46-116); Anion Gap 5.2 mmol/L (3-11); BUN 15 mg/dL (7-18); Bilirubin, Direct 0.2 mg/dL (0.0-0.2); Bilirubin, Total 0.5 mg/dL (0.2-1.0); CO2 28.8 mmol/L (21.0-32.0); CREATININE 0.6 mg/dL (0.70-1.30); Calcium 7.7 mg/dL (8.5-10.1); Chloride 115 mmol/L (98-107); Glucose 92 mg/dL (74-106); Magnesium 2.1 mg/dL (1.8-2.4); Sodium 149 mmol/L (136-145); Total Protein 5.4 g/dL (6.4-8.2)
[2021-12-23] MEDS: Lactulose 20 GM/30 ML CUP 15 GM PO (07:40)
[2021-12-23] MEDS: Pantoprazole 40 MG TABCR PO (07:40)
[2021-12-23] MEDS: Midodrine 2.5 MG TAB PO (07:40)
[2021-12-23 07:46] LABS: Diff Comment Diff Reviewed; RBC Morphology Normal
[2021-12-23 08:33] LABS: Vitamin D 25 Total 12.9 ng/mL (30-100)
--- NOTE | 2021-12-23 09:18 | CMSP_ITS ---
- If Service Date Differs Date of service: 12/23/21 Time of Service: 09:18 Care Management Safety Plan Status: Involuntary - Reason for Wait Reason for Wait: Inpatient Admission, Medical Clearance INVOLUNTARY FOR INPATIENT PSYCHIATRIC STABILIZATION. Per MD: Acute altered mental status has a number of potential etiologies. The first is acute psychosis due to treatment non-adherence. A second is Wernicke's encephalopathy due to what is assumed to be chronic alcohol abuse. The third may be hepatic encephalopathy due to elevated ammonia. CM: Ramone lives alone in an apartment in [facility]. He receives services through the CENTRAL SUPPLY WORKER Program at [facility]. Ram[facility] He arrived at [facility] on a Warrant for Emergency Examination due to agitation, psychosis, and refusal of treatment. Terrance Ayers, CENTRAL SUPPLY WORKER health program manager at [facility] following Ramone today, he reports speaking with [facility] who stated [facility] to [facility] or alternative facility would be in line with treatment recommendations due to medical/mental health status at this time. Dr. Edmond will attempt transfer to [place], [facility]. Safety plan has been established to meet the needs of the patient, and consideration of the care team, to adhere to patient goals, identify restrictions based on behavioral status, address nutrition, and determine allowed personal belongings, tools for hygiene and personal care. Determine level of activity including ambulation, level of supervision, visitors, and determine privileges based on behaviors and level of engagement by pt. SAFETY PLAN: 1. Will remain on SI/HI precautions. In Paper Clothes 2. Will remain in room under direct supervision of one-on-one staff at all times provided by CPSO, CLAY CASTER, MARKETING AREA MANAGER oil filters inspector. 3. May have paper cups, plates, finger foods as well as a cardboard spoon with which to eat meals. 4. Follow [facility] Management of the Admitted Behavioral Health Patient policy. 5. Comfort bath system only, shower permitted with escort and support at RN discretion. 6. No personal belongings. 7. Visitors: Per [facility] visitor policy and at RN discretion. 8. Activities: Soft cart items, television and other activities based on behavior and at RN discretion. 9. Bathroom privileges with escort in the ED; bathroom available in room without limitation on M/S. 10. Phone: via [facility] cordless phone. 11. Due to INVOLUNTARY status, patient is being held at [facility] by the Department of Mental Health ([facility]) until 2nd certification by [facility] Psychiatrist can be performed (within 24 hours). Staff will provide de-escalation support (CPI) as needed. If patient wishes to leave [facility], staff will contact [facility] Crisis Screener ([phone]) and On-Call Junior Designer ([phone]) as soon as possible. In the event of elopement, notify [facility] Police ([phone]). Patient is currently involuntarily at [facility]. [facility] Frontline Shoe Shanker will reassess patient daily and will seek placement once patient is medically cleared. Please contact the Dance Professor Junior Designer ([phone]) for any needed changes to Safety Plan. Safety plan has been provided to interdepartmental care team. Patient will be transported by channel development director at time of discharge.
--- NOTE | 2021-12-23 09:18 | PDOC.CMSAFE ---
- If Service Date Differs Date of service: 12/23/21 Time of Service: 09:18 Care Management Safety Plan Status: Involuntary - Reason for Wait Reason for Wait: Inpatient Admission, Medical Clearance INVOLUNTARY FOR INPATIENT PSYCHIATRIC STABILIZATION. Per MD: Acute altered mental status has a number of potential etiologies. The first is acute psychosis due to treatment non-adherence. A second is Wernicke's encephalopathy due to what is assumed to be chronic alcohol abuse. The third may be hepatic encephalopathy due to elevated ammonia. CM: Ramone lives alone in an apartment in [facility]. He receives services through the MEDICAL SECRETARY Program at [facility]. Ramone is a and [facility] He arrived at [facility] on a Warrant for Emergency Examination due to agitation, psychosis, and refusal of treatment. Terrance Ayers, MEDICAL SECRETARY applications programmer at [facility] following Raomne today, he reports speaking with [facility] who stated transfer to [facility] or alternative facility would be in line with treatment recommendations due to medical/mental health status at this time. Dr. Edmond will attempt transfer to [place], [facility]. Safety plan has been established to meet the needs of the patient, and consideration of the care team, to adhere to patient goals, identify restrictions based on behavioral status, address nutrition, and determine allowed personal belongings, tools for hygiene and personal care. Determine level of activity including ambulation, level of supervision, visitors, and determine privileges based on behaviors and level of engagement by pt. SAFETY PLAN: 1. Will remain on SI/HI precautions. In Paper Clothes 2. Will remain in room under direct supervision of one-on-one staff at all times provided by CPSO, HOME PLANNING CONSULTANT SALESPERSON, MLT physical laboratory assistant. 3. May have paper cups, plates, finger foods as well as a cardboard spoon with which to eat meals. 4. Follow [facility] Management of the Admitted Behavioral Health Patient policy. 5. Comfort bath system only, shower permitted with escort and support at RN discretion. 6. No personal belongings. 7. Visitors: Per [facility] visitor policy and at RN discretion. 8. Activities: Soft cart items, television and other activities based on behavior and at RN discretion. 9. Bathroom privileges with escort in the ED; bathroom available in room without limitation on M/S. 10. Phone: via [facility] cordless phone. 11. Due to INVOLUNTARY status, patient is being held at [facility] by the Department of Mental Health ([facility]) until 2nd certification by [facility] Psychiatrist can be performed (within 24 hours). Staff will provide de-escalation support (CPI) as needed. If patient wishes to leave [facility], staff will contact [facility] Crisis Screener ([phone]) and On-Call Lamp Mechanic ([phone]) as soon as possible. In the event of elopement, notify [facility] Police ([phone]). Patient is currently involuntarily at [facility]. [facility] Frontline Petroleum Inspector will reassess patient daily and will seek placement once patient is medically cleared. Please contact the Lay Out Maker Lamp Mechanic ([phone]) for any needed changes to Safety Plan. Safety plan has been provided to interdepartmental care team. Patient will be transported by deputy chief sheriff at time of discharge.
[2021-12-23] MEDS: Celecoxib 100 MG CAP PO ×2 (09:47→19:53)
--- NOTE | 2021-12-23 10:07 | W.NUTCONSULT ---
Date of service: 12/23/21 Time of Service: 09:07 Nutritional Consult ASSESSMENT: 66 year old male admitted with dehydration, self neglect, hypotension, hyperammonemia from liver cirrohsis with bone lesions, suicidal ideation, pathological fracture of humerus with 17 lbs weight loss noted in last 12 months. BMI still wnl. Supplemented with thiamine IV. Following Low Sodium diet with adquate intake. INTERVENTION: continue current meal plan MONITORING AND EVALUATION: Will follow and support as needed for optimal nutrient intake Time Spent in Nutritional Counseling and Treatment: 0
--- NOTE | 2021-12-23 11:07 | NT_ITS ---
Date of service: 12/23/21 Time of Service: 11:07 PT Notes Visit Reasons: Hepatic encephalopathy, UTI, pathologic R humeral Patient is not appropriate for PT services at this time due to persistent altered mental status preventing him to participate in therapy safely. Continue with [facility] services for close supervision during mobility ADL performance. Dr. Edmond and Nurse Pedro were made aware of plans for holding off on evaluation. Will plan on checking in on patient and coordinate with hospitalist tomorrow to determine readiness for PT services. Thank you for the opportunity to participate in the care of this patient. Neda Correa PT, DPT, CLT [facility] [place], [place]
[2021-12-23] MEDS: Cholecalciferol (Vitamin D3) 1,000 UNIT TAB 2000 UNITS PO (12:51)
--- NOTE | 2021-12-23 14:21 | PGE_ITS ---
Date of Service Date of service: 12/23/21 Time of Service: 13:23 Assessment and Plan Assessment and plan (1) Pathological fracture of humerus: Status: Acute Assessment and plan: Ideally would be evaluated by an oncologic orthopedist. At this point, the patient is EE'ed - and I believe that means that he cannot cross state lines for hospitalization. [facility] does not have capacity to accept patients in transfer. Even if he were taken off EE status, [facility] and [facility] are both at capacity and not accepting transfers. DDx: sarcoma, plasmacytoma,lypmhoma, metastatic disease. Because of co-existence of lytic lesions on spinal imaging, will obtain studies to r/o multiple myeloma, prostate ca; pending Sling for comfort recommended by orthopedics. (2) Lytic lesion of bone on x-ray: Status: Acute Assessment and plan: As above (3) Acute UTI: Status: Acute Assessment and plan: Due to salazar-sensitive E. Coli, Present on admission. No evidence of obstructive uropathy or stones on CT. However, does have a distended bladder on CT. It is difficult to assess PVRs by bladder scans in patients with ascites, but we can try. Continue ceftriaxone. Await sensitivities. (4) Hypotension: Status: Acute Assessment and plan: Expected in setting of cirrhosis and asytmptomatic at this time - however, did the patient get dizzy from hypotension and fall at home? Midodrine was initiated on admission. Stopped today after BP of 136/82. Will restart if BP declines and pt is symptomatic. (5) Hyperammonemia: Status: Acute Assessment and plan: Now on lactulose and having greater than 4 BMs in 24 hours. Will decrease from TID to BID dosing; parameters to hold second dose given. (6) Psychosis: Status: Acute Assessment and plan: H/o schizophrenia, per prior records. Will treat medical issues that could be confounding the picture and administer zyprexa 15 mg PO QHS. [facility]. Likely hasn't been compliant with any home meds recently given his psychosis. (7) Cirrhosis: Assessment and plan: Chronic, alcoholic. with evidence of portal hypertension, ascites and edema, hyperammonemia, pancytopenia. The patient mentioned a GI bleed in the past. Will avoid IVF now that the BPs have come up. Will clarify the patient's actual medications - obtain [facility] the [facility]. Would ideally be on a beta teddy. 2 gram sodium diet. (8) Pancytopenia: Assessment and plan: Monitor for bleeding. Avoid chemical DVT ppx. (9) Cholelithiasis: Status: Chronic Assessment and plan: No evidence of cholecystitis. No further workup necessary. (10) Dehydration: Status: Acute Assessment and plan: IVF now d/c'ed as the patient is taking good PO and BPs have come up. Encourage PO liquids. (11) Discharge planning issues: Status: Acute Assessment and plan: Full code. Under EE. Attempting to find bed at tertiary [facility] for eventual transfer. (12) DVT prophylaxis: Status: Acute Assessment and plan: SCDs. Avoid chemical DVT ppx in this patient who has evidence of cirrhosis and portal hypertension and states has had a GI bleed in the past. Subjective Subjective Patient reports: no new complaints, still having pain, diarrhea and afebrile; denies nausea, vomiting or shortness of breath Interval history since last seen: States the swelling / hematoma of the right proximal humerus area has decreased in size. Exam Narrative Exam Narrative: General: Cooperative yet psychotic middle-aged male. When asked a question he responds: Didn't you watch the movie yesterday in a iglesias voice. Neurological: A&Ox2, no focal motor deficits, no asterexis Psychiatric: Paranoid, tangential speech Skin: Large ecchymosis on RUE (purplish) HEENT: Atraumatic, normocephalic, EOMI, dry MM, clear oropharynx, no submandibular or cervical lymphadenopathy, no goiter or JVD Cardiovascular: RRR, no murmur Lungs: CTAB Gastrointestinal: soft, mildly distended, nontender, + BS Extremities: +1 BLE edema, symmetric, no c/c. Objective Last Vital Signs Temp 36.3 C L 12/23/21 11:31 Pulse 80 12/23/21 11:31 Resp 17 12/23/21 11:31 BP 120/88 12/23/21 11:40 Pulse Ox 100 12/23/21 11:31 Laboratory Results - last 24 hr 12/23/21 12/23/21 12/23/21 06:58 06:58 06:58 WBC RBC Hgb Hct MCV MCH MCHC RDW Plt Count MPV Immature Gran % Neutrophils % Lymphocytes % Monocytes % Eosinophils % Basophils % Nucleated RBC % Absolute Neutrophils Absolute Lymphocytes Absolute Monocytes Absolute Eosinophils Absolute Basophils RBC Morphology PT INR Sodium 149 H Potassium 4.0 Chloride 115 H Carbon Dioxide 28.8 Anion Gap 5.2 BUN 15 Creatinine 0.6 L Estimated GFR/1.73 m2 >= 60.00 Glucose 92 Calcium 7.7 L Magnesium 2.1 Total Bilirubin 0.5 Conjugated Bilirubin 0.2 AST 69 H ALT 53 Alkaline Phosphatase 234 H Ammonia 51 H Total Protein 5.4 L Albumin 2.1 L 25-OH Vitamin D Total 12.9 L 12/23/21 12/23/21 06:58 06:58 WBC 1.98 L* RBC 3.51 L Hgb 10.8 L Hct 34.5 L MCV 98 H MCH 30.8 MCHC 31.3 L RDW 16.5 H Plt Count 111 L MPV 9.9 Immature Gran % 0.5 Neutrophils % 40.0 Lymphocytes % 41.9 Monocytes % 12.6 Eosinophils % 4.0 Basophils % 1.0 Nucleated RBC % 0.0 Absolute Neutrophils 0.79 L Absolute Lymphocytes 0.83 L Absolute Monocytes 0.25 Absolute Eosinophils 0.08 Absolute Basophils 0.02 RBC Morphology Normal PT 11.4 H INR 1.1 Sodium Potassium Chloride Carbon Dioxide Anion Gap BUN Creatinine Estimated GFR/1.73 m2 Glucose Calcium Magnesium Total Bilirubin Conjugated Bilirubin AST ALT Alkaline Phosphatase Ammonia Total Protein Albumin 25-OH Vitamin D Total
[2021-12-23] MEDS: OLANZapine 10 MG, OLANZapine 5 MG 15 MG PO (21:42)
[2021-12-24] MEDS: oxyCODONE 5 MG TAB PO ×2 (01:51→19:55)
[2021-12-24] MEDS: Acetaminophen 325 MG TAB PO (01:51)
[2021-12-24] MEDS: THIAMINE 500 MG in Normal Saline 100 ML 200 MG IVPB (01:51)
[2021-12-24 03:06] VITALS: BP 102/62; PULSE 96; RESP 18; TEMP 36.4; O2SAT 96
[2021-12-24 06:17] LABS: Abs Immature Grans 0.01 10^3/uL (0.0-0.06); Absolute Basophil Count 0.02 10^3/uL (0.0-0.2); Absolute Lymphocyte Count 0.73 10^3/uL (1.2-3.4); Absolute Monocyte Count 0.25 10^3/uL (0.1-0.8); Absolute Neutrophil Count 1.09 10^3/uL (1.2-6.7); Basophils % 0.9; Eosinophils % 4.5; HCT 33.6 % (40.0-50.0); HGB 10.7 g/dL (13.5-17.5); Immature Grans % 0.5; Lymphocytes % 33.2; MCH 31.3 pg (27.0-33.0); MCHC 31.8 % (32.0-36.0); MCV 98 fL (80-95); MPV 9.6 fL (8.0-11.0); Monocytes % 11.4; Neutrophils % 49.5; Platelet Count 107 10^3/uL (130-400); RBC 3.42 10^6/uL (4.36-5.78); RDW 16.1 % (11.8-14.1); RDW-SD 58.4 fL
[2021-12-24 06:51] LABS: ALT 75 U/L (16-63); AST 97 U/L (15-37); Albumin 2.2 g/dL (3.4-5.0); Alkaline Phosphatase 277 U/L (46-116); Anion Gap 3.8 mmol/L (3-11); BUN 15 mg/dL (7-18); Bilirubin, Total 0.4 mg/dL (0.2-1.0); CO2 29.2 mmol/L (21.0-32.0); CREATININE 0.6 mg/dL (0.70-1.30); Calcium 7.6 mg/dL (8.5-10.1); Chloride 111 mmol/L (98-107); Glucose 95 mg/dL (74-106); Potassium 4.2 mmol/L (3.5-5.1); Sodium 144 mmol/L (136-145); Total Protein 5.6 g/dL (6.4-8.2)
[2021-12-24 07:28] VITALS: BP 132/103; PULSE 90; RESP 17; TEMP 36; O2SAT 99
[2021-12-24] MEDS: Cholecalciferol (Vitamin D3) 1,000 UNIT TAB 2000 UNITS PO (08:21)
[2021-12-24] MEDS: Celecoxib 100 MG CAP PO ×2 (08:21→19:55)
[2021-12-24] MEDS: Lactulose 20 GM/30 ML CUP 15 GM PO ×2 (08:22→19:55)
[2021-12-24] MEDS: Pantoprazole 40 MG TABCR PO (08:22)
--- NOTE | 2021-12-24 08:37 | OT.INIE ---
Occupational Therapy Notes Inpatient Occupational Therapy Evaluation Date: 12/24/21 Referring Doctor:Alber Edmond MD OT Orders: Non urgent Precautions: Fall, standard, full Per CM notes Safety plan in place- Safety plan?has been established to meet the needs of the patient, and consideration of the care team, to adhere to patient goals, identify restrictions based on behavioral status, address nutrition, and determine allowed personal belongings, tools for hygiene and personal care. Determine level of activity including ambulation, level of supervision, visitors, and determine privileges based on behaviors and level of engagement by pt. SAFETY PLAN: 1. Will remain on SI/HI precautions. In Paper Clothes 2. Will remain in room under direct supervision of one-on-one staff at all times provided by CPSO, INDUSTRIAL X RAY OPERATOR, MOTOR REBUILDER end worker. 3. May have paper cups, plates, finger foods as well as a cardboard spoon with which to eat meals. 4. Follow [facility] Management of the Admitted Behavioral Health Patient policy. 5. Comfort bath system only, shower permitted with escort and support at RN discretion. 6. No personal belongings. 7. Visitors: Per [facility] visitor policy and at RN discretion. 8. Activities: Soft cart items, television and other activities based on behavior and at RN discretion. 9. Bathroom privileges with escort in the ED; bathroom available in room without limitation on M/S. 10. Phone: via [facility] cordless phone. 11. Due to?INVOLUNTARY?status, patient is being held at [facility] by the Department of Mental Health ([facility]) until 2nd certification by [facility] Psychiatrist can be performed (within 24 hours). Staff will provide de-escalation support (CPI) as needed. If patient wishes to leave [facility], staff will contact [facility] Crisis Screener ([phone]) and On-Call Perforator Operator ([phone]) as soon as possible. In the event of elopement, notify [employer] Police ([phone]). PATIENT PROFILE/ADMITTING DIAGNOSIS: Pt is a 66 year old male who was admitted to [facility] for the following dx of hypotension, dehydration, hyperammonemia, digenerative disc disease, lytic lesion of bone, pathological fx of humerus, suicidal ideation, paranoid delusion, anemia, closed fx of (R) humeral fx, psychosis, cholelithiasis,acute UTI. Past Medical History: All Active Problems?(Updated 12/22/21 @ 20:22 by Yue Moran MD) Hypotension (Acute) Dehydration (Acute) Discharge planning issues (Acute) DVT prophylaxis (Acute) Hyperammonemia (Acute) Degenerative disc disease, cervical (Acute) Lytic lesion of bone on x-ray (Acute) Pathological fracture of humerus (Acute) Suicidal ideation (Acute) Paranoid delusion (Acute) Anemia, iron deficiency (Acute) Closed right humeral fracture (Acute) Psychosis (Acute) Cholelithiasis (Chronic) Acute UTI (Acute) Medical History?(Updated 12/22/21 @ 20:22 by Yue Moran MD) Anemia Cirrhosis Hypothyroidism Pancytopenia Portal hypertension Schizophrenia Surgical History?(Updated 12/22/21 @ 19:59 by Yue Moran MD) Surgical history unknown Family History?(Updated 12/22/21 @ 19:59 by Yue Moran MD) Other Family history unobtainable due to patient's condition Social History/Home Situation: Unable to achieve pts baseline level of function from pt as he is a poor historian. Per CM initial assessment, Ramone lives alone in an apartment in [facility].? He receives services through the ATMOSPHERIC SCIENCES PROFESSOR Program at [facility].? Ram[facility] a and [facility] He arrives at [facility] on a Warrant for Emergency Examination due to agitation, psychosis, and refusal of treatment. Equipment owned/DME: Unable to assess SUBJECTIVE: Pt was sitting in bed when OT arrived with nursing sitting at his side for supervision. He is back and forth with multiple conversations and is minnow fishing this morning according to him. OBJECTIVE: General Observation: Pt has a significant cognitive deficit limiting his functional (I) in his ADL routines. He is confused and needs vc to initiate tasks. Mental Status: A&Ox1 Pain: c/o pain in (R) shoulder ROM: RUE NT L UE AROM WFL STRENGTH: RUE NT due to fx LUE 4/5 throughout FUNCTIONAL MOBILITY/ADLS: Transfers - pt requires Supervision due to decreased safety but is able to actively perform this (I) Supine-sit (I) Sit-supine (I) Sit-Stand (I) Stand-sit (I) Bed-Chair (I) Chair-bed (I) EATING in room- pt requires vc throughout eating routine as his psychosis and mental status he goes between multiple tasks at once. He is unfortunately unable to utilize silverware due to safety concerns. He is (I) with hand to mouth and chewing and swallowing. OT offers to go to shower with pt who states that he wants to eat first. OT did offer to go if pt is willing to go while OT is still on Med Surg for today. Pt will require 2 person (A) in shower for safety concerns for pt and staff in the shower area. BALANCE: Static sitting Normal Dynamic Sitting Normal Static Standing Normal Dynamic Standing Good SPECIAL TESTS: Daily Activity Limitations Standardized Measure [facility] AM -PAC ?6 clicks? Daily Activity Inpatient Short Form: Raw score: 12 Standardized score: 30.60 CMS score: 66.57% INFORMED CONSENT/EDUCATION: Pt instructed in purpose of OT Consult and plan of care. ASSESSMENT: Patient is a 66-year-old male referred to occupational therapy services with diagnosis of hypotension, dehydration, hyperammonemia, digenerative disc disease, lytic lesion of bone, pathological fx of humerus, suicidal ideation, paranoid delusion, anemia, closed fx of (R) humeral fx, psychosis, cholelithiasis,acute UTI. Patient presents with clinical signs and symptoms consistent with dx, as demonstrated by the following impairment level findings/functional limitations: Cognitive deficit limiting pts functional (I) in his ADL/IADLs, decreased safety awareness, psychosis which makes it so pt is unable to make safe decisions in regards to his ADL routines. pain in (R) UE due to fx limiting his functional (I) throughout, unable to perform or initiate tasks without vc. AMPAC score 12 Patient is assessed as a high 16830 complexity based on the following: History: see above Examination: see functional limitations as noted above Presentation: evolving Decision Making: AMPAC score 12 GOALS Goals x1 week 1. Grooming- standing at sink (I) with min vc 2. Dressing- sitting in chair (I) with mod vc 3. Bathing- standing at sink (I) with mod vc 4. Toileting- on toilet (I) PLAN OF CARE/TREATMENT PLAN: 1x/day, 3 days/ week x 1week Initiate Occupational Therapy Services for bathing, dressing, grooming, toileting, eating, transfer training. DISCHARGE RECOMMENDATIONS OT recommends that pt go to LTC as his decreased safety awareness, inability to care for himself and cognitive status is not safe to return to (I) living at this time. TREATMENT TIME/MINUTES/CODES 63590, 25 minutes (08:30) Sulma Payne OTR/[facility]
[2021-12-24 10:21] LABS: Kappa Free Light Chain 3.98 mg/dL (0.33-1.94); Lambda Free Light Chain 3.38 mg/dL (0.57-2.63)
[2021-12-24] MEDS: OLANZapine 2.5 MG TAB PO (11:10)
--- NOTE | 2021-12-24 12:49 | PT.INIE ---
Date of service: 12/24/21 Time of Service: 12:49 PT Notes Visit Reasons: Hepatic encephalopathy,UTI,Pathologic R humeral Physical Therapy Inpatient Initial Evaluation Date: 12/24/2021 Referring Doctor: Yue Moran MD PT Orders: PT CONSULT: Limited ability Precautions: Fall. Standard. Activity as tolerated. On safety plan, please refer to safety plan protocols under case mangement notes. Patient Profile/Admitting Diagnosis: Ramone is a 66-year-old male who presented to the ED on 12/21/2021 due to increasing anxiety, agitation, ptosis, failure to thrive at home, treatment noncompliance, and obvious sign of trauma or injury to the right shoulder. Patient is diagnosed with pathologic fracture of the right humerus with marked displacement and comminution seen on imaging, lytic lesion of bone on x-ray with associated T8 tear of the subscapularis and the long head of the biceps tendon, acute urinary tract infection, hypotension, hyperammonemia, cirrhosis, pancytopenia, cholelithiasis, and dehydration. Surgeon recommended placement of the right arm on sling but patient has been non-compliant. PMHX: All Active Problems?(Updated 12/22/21 @ 20:22 by Yue Moran MD) Hypotension (Acute) Dehydration (Acute) Discharge planning issues (Acute) DVT prophylaxis (Acute) Hyperammonemia (Acute) Degenerative disc disease, cervical (Acute) Lytic lesion of bone on x-ray (Acute) Pathological fracture of humerus (Acute) Suicidal ideation (Acute) Paranoid delusion (Acute) Anemia, iron deficiency (Acute) Closed right humeral fracture (Acute) Psychosis (Acute) Cholelithiasis (Chronic) Acute UTI (Acute) Medical History?(Updated 12/22/21 @ 20:22 by Yue Moran MD) Anemia Cirrhosis Hypothyroidism Pancytopenia Portal hypertension Schizophrenia Surgical History?(Updated 12/22/21 @ 19:59 by Yue Moran MD) Surgical history unknown Social History/Home Situation: Unsure of prior level of function as PT is unable to extract accurate information from patient due to altered mental status. Equipment Owned/DME: Unknown at this time Subjective: Heyyyy!! Howdy!!! Come on in and give me a hug!have you seen my house? Objective: General Observation: BILINGUAL EXECUTIVE ASSISTANT Sarai sitting with patient. Patient seated on bedside chair positioned close to the window. Sling placed in an akward manner on patient't shoulder with straps all in the wrong place. R UE swollen. Mental Status: Alert. Rambles a lot. Responses mostly off-tangent. Thought process impaired--compulsive, suspicious, mood swings, emotionally labile, easily distracted. Pain: Complains of R shoulder pain intermittently until he gets distracted by something or someone ROM: Right Upper Extremity: Shoulder NT. Elbow and wrist grossly WFL. Left Upper Extremity: Grossly WFL Right Lower Extremity: Grossly WFL Left Lower Extremity: Grossly WFL Strength: Right Upper Extremity: NT Left Upper Extremity: Grossly 4/5 Right Lower Extremity: Grossly 4/5 Left Lower Extremity: Grossly 4/5 Bed Mobility/Transfers: Sit to stand supervision Stand to sit supervision Bed to reclining chair supervision Gait: Instructed patient with level surface ambulation of 300 feet requiring stand by assist of 2 for safety. No AD needed but gait is mildly ataxic. One near loss of balance that required minimal assist of PT and BILINGUAL EXECUTIVE ASSISTANT Sarai. Balance: Static Sitting: Normal Dynamic Sitting: Normal Static Standing: Good Dynamic Standing: Fair Special Tests: Mobility Limitations Standardized Measure [facility]-PAC 6 clicks Basic Mobility Inpatient Short Form: Raw Score: 23 CMS Score: 0% deficit Informed Consent/Education: Patient was instructed in purpose of PT consult and plan of care. Agreeable to proceed with established PT POC to achieve personal goals. ASSESSMENT: Once patient is psychiatrically stabilized, he will benefit from R UE rehabilitation. Will hold off on services over the weekend. PT will reassess on 12/27/2021 to determine appropriateness for continuation of services. Continue with supervision assist for ambulation without AD but with assist of 2 with sling on R per orthopedic surgeon's recommendations. Will continue to consult with hospitalist regarding PT POC per protocol. Patient presents with clinical signs and symptoms consistent with current/admitting diagnoses that have resulted to mobility limitations, gait instability, generalized weakness, and overall ADL decline as demonstrated by the following impairment level findings: 1. Decreased strength to R UE major muscle groups 2. Impaired sitting/standing balance 3. Impaired activity tolerance 4. Limitation of joint range of motion in R shoulder 5. Psychosis preventing treatment participation 6. R UE swelling 7. Impaired safety awareness Impairments are contributing to the following functional limitations: 1. Inability to thrive home alone 2. Increased fall risk 3. Increased completion time for mobility ADL performance Patient is assessed as a 25199 high complexity based on the following: History: 6-year-old male with past medical history as indicated above Examination: Demonstrable impairment in strength, balance, and mobility level with underlying impairments and functional limitations as exhibited above as well as deficit score of 11% utilizing the [facility] Mobility Inpatient Short Form Presentation: Evolving Decision Makin high complexity Goals: Goals X1 week 1. Supine-Sit independent 2. Sit-Supine independent 3. Sit-Stand independent 4. Stand-Sit independent with no AD 5. Bed-Chair independent with no AD 6. Chair-Bed independent with no AD 7. Independent gait on level surface with use of no AD for at least 1000 feet without report of pain nor dyspnea 8. Independent stair negotiation while holding onto 1 rails for at least 5 steps without report of pain nor dyspnea 9. Good static and dynamic standing balance/tolerance Plan of Care/Treatment Plan: Hold off on PT services unitl psychiatrically stabilized. PT to reassess on Monday. Will see patient 1-2x/day, 7 days/week x 1 week once stabilized. Plan of care has been reviewed with the RUBBER COVERING MACHINE OPERATOR providing the service under Physical Therapy direction. Initiate Physical Therapy intervention for pain management as needed, strengthening, bed mobility, transfers, gait, stairs, balance training, and use of assistive device. DISCHARGE RECOMMENDATIONS: Unknown at this time. Will continue to reassess based on progress and ability to participate in therapy. TREATMENT CODE/TIME: 97910 x 30 minutes beginning at 12:49 PM. Thank you for the opportunity to participate in the care of this patient. Neda Correa PT, DPT, CLT [facility] [place], [place]
[2021-12-24 13:36] LABS: Albumin 52.5 % (55.8-66.1); Albumin g/dL 2.7 g/dL (3.6-5.2); Total Protein 5.2 g/dL (6.3-8.2)
--- NOTE | 2021-12-24 14:41 | CMSP_ITS ---
- If Service Date Differs Date of service: 12/24/21 Time of Service: 14:41 Care Management Safety Plan Status: Voluntary - Reason for Wait Reason for Wait: Inpatient Admission INVOLUNTARY FOR INPATIENT PSYCHIATRIC STABILIZATION. Per MD: Patient is now medically cleared as medical concerns will be attended to on an outpatient basis. CM: Ramone lives alone in an apartment in [facility]. He receives services through the SIEVE MAKER Program at [facility]. Ram[facility] a [facility] He arrived at [facility] on a Warrant for Emergency Examination due to agitation, psychosis, and refusal of treatment. Terrance Ayers HP at [facility] followed Ramone again today, CM coordinated contact with Dr. Edmond. CM also spoke with JONNY Romero who reported she would coordinate referrals to all psychiatric facilities. Safety plan has been established to meet the needs of the patient, and consideration of the care team, to adhere to patient goals, identify restrictions based on behavioral status, address nutrition, and determine allowed personal belongings, tools for hygiene and personal care. Determine level of activity including ambulation, level of supervision, visitors, and determine privileges based on behaviors and level of engagement by pt. SAFETY PLAN: 1. Will remain on SI/HI precautions. In Paper Clothes 2. Will remain in room under direct supervision of one-on-one staff at all times provided by CPSO, AUTO INSPECTION SPECIALIST, MUFFLER INSTALLER director of therapy services. 3. May have paper cups, plates, finger foods as well as a cardboard spoon with which to eat meals. 4. Follow [facility] Management of the Admitted Behavioral Health Patient policy. 5. Comfort bath system only, shower permitted with escort and support at RN discretion. 6. No personal belongings. 7. Visitors: Per [facility] visitor policy and at RN discretion. 8. Activities: Soft cart items, television and other activities based on behavior and at RN discretion. 9. Bathroom privileges with escort in the ED; bathroom available in room without limitation on M/S. 10. Phone: via [facility] [employer] phone. 11. Due to INVOLUNTARY status, patient is being held at [facility] by the Department of Mental Health (DM) until 2nd certification by [facility] Psychiatrist can be performed (within 24 hours). Staff will provide de-escalation support (CPI) as needed. If patient wishes to leave [facility], staff will contact [facility] Crisis Screener ([phone]) and On-Call Manual Machinist ([phone]) as soon as possible. In the event of elopement, notify [facility] Police ([phone]). Patient is currently involuntarily at [facility]. [facility] Frontline Group Rooms Coordinator will reassess patient daily and will seek placement once patient is medically cleared. Please contact the Driller Portable Manual Machinist ([phone]) for any needed changes to Safety Plan. Safety plan has been provided to interdepartmental care team. Patient will be transported by chemist organic at time of discharge.
--- NOTE | 2021-12-24 14:41 | PDOC.CMSAFE ---
- If Service Date Differs Date of service: 12/24/21 Time of Service: 14:41 Care Management Safety Plan Status: Voluntary - Reason for Wait Reason for Wait: Inpatient Admission INVOLUNTARY FOR INPATIENT PSYCHIATRIC STABILIZATION. Per MD: Patient is now medically cleared as medical concerns will be attended to on an outpatient basis. CM: Ramone lives alone in an apartment in [facility]. He receives services through the MANAGER LANDSCAPE Program at [facility]. Ram[facility] a [facility] He arrived at [facility] on a Warrant for Emergency Examination due to agitation, psychosis, and refusal of treatment. Terrance Ayers HP at [facility] followed Ramone again today, CM coordinated contact with Dr. Edmond. CM also spoke with JONNY Romero who reported she would coordinate referrals to all psychiatric facilities. Safety plan has been established to meet the needs of the patient, and consideration of the care team, to adhere to patient goals, identify restrictions based on behavioral status, address nutrition, and determine allowed personal belongings, tools for hygiene and personal care. Determine level of activity including ambulation, level of supervision, visitors, and determine privileges based on behaviors and level of engagement by pt. SAFETY PLAN: 1. Will remain on SI/HI precautions. In Paper Clothes 2. Will remain in room under direct supervision of one-on-one staff at all times provided by CPSO, MANAGER FOOD BEVERAGE, BLURB WRITER rail transportation operator. 3. May have paper cups, plates, finger foods as well as a cardboard spoon with which to eat meals. 4. Follow [facility] Management of the Admitted Behavioral Health Patient policy. 5. Comfort bath system only, shower permitted with escort and support at RN discretion. 6. No personal belongings. 7. Visitors: Per [facility] visitor policy and at RN discretion. 8. Activities: Soft cart items, television and other activities based on behavior and at RN discretion. 9. Bathroom privileges with escort in the ED; bathroom available in room without limitation on M/S. 10. Phone: via [facility] Dev[employer] phone. 11. Due to INVOLUNTARY status, patient is being held at [facility] by the Department of Mental Health (DM) until 2nd certification by [facility] Psychiatrist can be performed (within 24 hours). Staff will provide de-escalation support (CPI) as needed. If patient wishes to leave [facility], staff will contact [facility] Crisis Screener ([phone]) and On-Call Food Management Aide ([phone]) as soon as possible. In the event of elopement, notify [facility] Police ([phone]). Patient is currently involuntarily at [facility]. [facility] Frontline Behavioral Medical Director will reassess patient daily and will seek placement once patient is medically cleared. Please contact the Business Services Coordinator Food Management Aide ([phone]) for any needed changes to Safety Plan. Safety plan has been provided to interdepartmental care team. Patient will be transported by boatswain's mate at time of discharge.
[2021-12-24 14:56] VITALS: BP 109/80; PULSE 110; RESP 20; TEMP 37; O2SAT 96
[2021-12-24 15:06] LABS: Albumin, Urine % 18.9 %; Albumin, Urine mg/dL 1 mg/dL; Globulins, Urine % 81.1 %; Globulins, Urine mg/dL 5 mg/dL; Immunotyping, Urine (See Note); Total Protein Urine 6 mg/dL (See Note)
--- NOTE | 2021-12-24 15:20 | W.PM.PROGNOT ---
Date of Service Date of service: 12/24/21 Time of Service: 13:05 Assessment and Plan Assessment and plan (1) Pathological fracture of humerus: Status: Acute Assessment and plan: Discussed with BRANDON Levy, orthopedics who stated the patient could be followed up as outpt. Certainly he is not able to d/c to home d/t his mental health state. LIkely has proliferative disease of plasma cell. Mostly likely multiple myeloma. Urine light chains are elevated. SPEP pending. (2) Lytic lesion of bone on x-ray: Status: Acute Assessment and plan: As above (3) Acute UTI: Status: Acute Assessment and plan: Due to salazar-sensitive E. Coli, Present on admission. No evidence of obstructive uropathy or stones on CT. However, does have a distended bladder on CT. It is difficult to assess PVRs by bladder scans in patients with ascites, but we can try. Continue ceftriaxone. (4) Hyperammonemia: Status: Acute Assessment and plan: Now on lactulose and having greater than 4 BMs in 24 hours. Decreased dose interval from TID to BID dosing; parameters to hold second dose given. (5) Psychosis: Status: Acute Assessment and plan: H/o schizophrenia, per prior records. Presented because he had locked himself in his home d/t paranoia. Will treat medical issues that could be confounding the picture and administer zyprexa 15 mg PO QHS. [facility] MAR obtained. No antipsychotics currently prescribed. Likely hasn't been compliant with any home meds recently given his psychosis. PRN zyprexa during the day when he is impulsive and expansive in his mood. (6) Cirrhosis: Assessment and plan: Chronic, alcoholic. with evidence of portal hypertension, hyperammonemia, pancytopenia. The patient mentioned a GI bleed in the past. Would ideally be on a beta teddy. 2 gram sodium diet. (7) Pancytopenia: Assessment and plan: Monitor for bleeding. Avoid chemical DVT ppx. (8) Cholelithiasis: Status: Chronic Assessment and plan: No evidence of cholecystitis. No further workup necessary. (9) Dehydration: Status: Acute Assessment and plan: Noted on admission. Resolved and now maintaining adequate hydration with oral intake. (10) Discharge planning issues: Status: Acute Assessment and plan: Full code. Would benefit from further psychiatric care to stabilize him before outpt f/u with orthopedics. (11) DVT prophylaxis: Status: Acute Assessment and plan: SCDs. Avoid chemical DVT ppx in this patient who has evidence of cirrhosis and portal hypertension and states has had a GI bleed in the past. Subjective Subjective Patient reports: no new complaints, feels better, tolerating a regular diet and afebrile; denies nausea, vomiting or shortness of breath Interval history since last seen: He states that he doesn't need his humerus fracture repaired. He is walking in his room w/o assistance. States that ice to the fx site is helpful. Exam Narrative Exam Narrative: Walks up to me and gives me a hug; Hey you old fart, it's been awhile. R arm in sling. Const General: cooperative and no acute distress Nutritional Appearance: average body habitus Orientation: alert, oriented to person and oriented to place HENVT Head: normocephalic and atraumatic Ears: hearing grossly normal bilaterally Eyes General: appearance normal, both eyes and all related structures Sclera: sclerae normal Resp Effort & Inspection: normal respiratory effort Auscultation: clear to auscultation bilaterally Cardio Rate: regular rate Rhythm: regular rhythm Heart Sounds: S1 normal and S2 normal Extrem General: no pedal edema and no calf tenderness Psych Appearance: grossly normal Speech and Movement: speech clear Mood: expansive Affect: euphoric affect Attitude: cooperative Thought Process: flight of ideas Thought Content: delusions Insight: poor Judgment: poor Objective Last Vital Signs Temp 37.0 C 12/24/21 14:56 Pulse 110 H 12/24/21 14:56 Resp 20 12/24/21 14:56 BP 109/80 12/24/21 14:56 Pulse Ox 96 12/24/21 14:56 Laboratory Results - last 24 hr 12/23/21 12/24/21 12/24/21 06:58 06:13 06:13 WBC 2.20 L RBC 3.42 L Hgb 10.7 L Hct 33.6 L MCV 98 H MCH 31.3 MCHC 31.8 L RDW 16.1 H Plt Count 107 L MPV 9.6 Immature Gran % 0.5 Neutrophils % 49.5 Lymphocytes % 33.2 Monocytes % 11.4 Eosinophils % 4.5 Basophils % 0.9 Nucleated RBC % 0.0 Absolute Neutrophils 1.09 L Absolute Lymphocytes 0.73 L Absolute Monocytes 0.25 Absolute Eosinophils 0.10 Absolute Basophils 0.02 Sodium 144 Potassium 4.2 Chloride 111 H Carbon Dioxide 29.2 Anion Gap 3.8 BUN 15 Creatinine 0.6 L Estimated GFR/1.73 m2 >= 60.00 Glucose 95 Calcium 7.6 L Total Bilirubin 0.4 AST 97 H ALT 75 H Alkaline Phosphatase 277 H Total Protein 5.6 L Total Protein (PEP) 5.2 L Albumin 2.2 L Albumin % (PEP) 52.5 L Albumin (PEP) 2.7 L Ifmuo-2-Dojpkqeyy 0.30 Mfepk-5-Gfbltbfhs (%) 5.9 H Pkoqz-1-Qvqojdftr 0.50 Vymhc-0-Lqksrpthz (%) 10.3 Beta Globulins (%) 10.8 Beta Gamma Globulin 0.60 Gamma Globulins 1.10 Gamma Globulins (%) 20.5 H M-Efrain Not Applicable M-Efrain % Not Applicable PEP Comment SEE BELOW Free Slater-[place] LC, Quant 3.98 H Free Lambda LC, Quant 3.38 H Free Slater-[place]/Lambda Ratio 1.18
[2021-12-24] MEDS: OLANZapine 5 MG TAB PO (15:33)
[2021-12-24] MEDS: Propranolol 20 MG TAB PO (19:55)
[2021-12-24] MEDS: OLANZapine 10 MG, OLANZapine 5 MG 15 MG PO (21:10)
[2021-12-24] MEDS: cefTRIAXone 1 GM/50 ML BAG IVPB (23:19)
[2021-12-24 23:25] VITALS: BP 131/77; PULSE 79; RESP 20; TEMP 36.5; O2SAT 93
[2021-12-25] MEDS: Lactulose 20 GM/30 ML CUP 15 GM PO ×2 (07:38→20:09)
[2021-12-25] MEDS: Celecoxib 100 MG CAP PO ×2 (07:39→20:09)
[2021-12-25] MEDS: OLANZapine 2.5 MG TAB PO (07:39)
[2021-12-25] MEDS: Propranolol 20 MG TAB PO ×2 (07:39→20:09)
[2021-12-25] MEDS: Pantoprazole 40 MG TABCR PO (07:39)
[2021-12-25] MEDS: Thiamine 100 MG TAB PO (07:39)
[2021-12-25] MEDS: Cholecalciferol (Vitamin D3) 1,000 UNIT TAB 2000 UNITS PO (07:39)
[2021-12-25] MEDS: Clopidogrel 75 MG TAB PO (07:39)
[2021-12-25] MEDS: Furosemide 20 MG TAB PO (07:39)
[2021-12-25 08:00] VITALS: BP 148/72; PULSE 78; RESP 18; TEMP 36.3; O2SAT 96
[2021-12-25 12:15] VITALS: BP 164/82; PULSE 84; RESP 18; TEMP 36.6; O2SAT 98
--- NOTE | 2021-12-25 16:20 | PDOC.CMPRO ---
- If Service Date Differs Date of service: 12/25/21 Time of Service: 16:21 Care Management Progress Note S/O: Ramone was sitting in a chair when CM met with him. He engaged in conversation with CM, but was disorganized and tangential in speech. Per CPSO, he has been easily redirectable. Per MD, the [place] is interested in taking Ramone in transfer, but likely not until Monday. They are reviewing his referral. He was evaluated by JOSEPHINE Irene, today, and all facilities were contacted. There are no beds available today. CM will continue to follow. A: Ramone is a 66 year old male admitted to [facility] on 12/22/21 with Hepatic encephalopathy, UTI, pathological R humeral fracture. He is now being held involuntarily for psychiatric treatment. P: Ramone is being held involuntarily awaiting a transfer for psychiatric treatment. Per report, Ramone has been medically cleared, as his medical concerns can be addressed out patient, and his fracture is not operable. Referrals were sent to [facility], [facility], [facility], [place]. There are no beds available today. The [place] is considering Ramone for admission on Monday. Once accepted, his transport will be coordinated by [facility]. CM will continue to follow. - MH Services (Omit if N/A) Current MH Services: FIBERGLASSER - Status Status: Involuntary - Reason for Wait Reason for Wait: Inpatient Admission
--- NOTE | 2021-12-25 16:36 | CMSP_ITS ---
- If Service Date Differs Date of service: 12/25/21 Time of Service: 16:36 Care Management Safety Plan Status: Involuntary - Reason for Wait Reason for Wait: Inpatient Admission Per MD: Patient is now medically cleared as medical concerns will be attended to on an outpatient basis. NATASHA: Ramone lives alone in an apartment in [facility]. He receives services through the CERTIFIED VEHICLE FIRE INVESTIGATOR Program at [facility]. Ramone is a and [facility] He arrived at [facility] on a Warrant for Emergency Examination due to agitation, psychosis, and refusal of treatment. DORI Irene at [facility] followed Ramone today. NATASHA also spoke with JONNY Romero who reported she followed up with all psychiatric facilities. No beds available today. Safety plan has been established to meet the needs of the patient, and consideration of the care team, to adhere to patient goals, identify restrictions based on behavioral status, address nutrition, and determine allowed personal belongings, tools for hygiene and personal care. Determine level of activity including ambulation, level of supervision, visitors, and determine privileges based on behaviors and level of engagement by pt. SAFETY PLAN: 1. Will remain on SI/HI precautions. In Paper Clothes 2. Will remain in room under direct supervision of one-on-one staff at all times provided by CPSO, MANUFACTURED BUILDINGS SUPERVISOR, LABORATORY CUREMAN management information systems director. 3. May have paper cups, plates, finger foods as well as a cardboard spoon with which to eat meals. 4. Follow [facility] Management of the Admitted Behavioral Health Patient policy. 5. Comfort bath system only, shower permitted with escort and support at RN discretion. 6. No personal belongings. 7. Visitors: Per [facility] visitor policy and at RN discretion. 8. Activities: Soft cart items, television and other activities based on behavior and at RN discretion. 9. Bathroom privileges with escort in the ED; bathroom available in room without limitation on M/S. 10. Phone: via [facility] cordless phone. 11. Due to INVOLUNTARY status, patient is being held at [facility] by the Department of Mental Health (DM) until 2nd certification by [facility] Psychiatrist can be performed (within 24 hours). Staff will provide de-escalation support (CPI) as needed. If patient wishes to leave [facility], staff will contact [facility] Crisis Screener ([phone]) and On-Call Pediatric Occupational Therapist ([phone]) as soon as possible. In the event of elopement, notify [facility] Police ([phone]). Patient is currently involuntarily at [facility]. [facility] Frontline Fiberglass Autobody Repairer will reassess patient daily and will seek placement once patient is medically cleared. Please contact the Eco Industrial Development Consultant Pediatric Occupational Therapist ([phone]) for any needed changes to Safety Plan. Safety plan has been provided to interdepartmental care team. Patient will be transported by metal slitter at time of discharge.
--- NOTE | 2021-12-25 16:36 | PDOC.CMSAFE ---
- If Service Date Differs Date of service: 12/25/21 Time of Service: 16:36 Care Management Safety Plan Status: Involuntary - Reason for Wait Reason for Wait: Inpatient Admission Per MD: Patient is now medically cleared as medical concerns will be attended to on an outpatient basis. NATASHA: Ramone lives alone in an apartment in [facility]. He receives services through the POT FIREMAN Program at [facility]. Ramone is a and [facility] He arrived at [facility] on a Warrant for Emergency Examination due to agitation, psychosis, and refusal of treatment. DORI Irene at [facility] followed Ramone today. NATASHA also spoke with JONNY Romero who reported she followed up with all psychiatric facilities. No beds available today. Safety plan has been established to meet the needs of the patient, and consideration of the care team, to adhere to patient goals, identify restrictions based on behavioral status, address nutrition, and determine allowed personal belongings, tools for hygiene and personal care. Determine level of activity including ambulation, level of supervision, visitors, and determine privileges based on behaviors and level of engagement by pt. SAFETY PLAN: 1. Will remain on SI/HI precautions. In Paper Clothes 2. Will remain in room under direct supervision of one-on-one staff at all times provided by CPSO, CUT OUT OPERATOR, MEDICAL NUMERICAL CONTROL OPERATOR structural steel worker helper. 3. May have paper cups, plates, finger foods as well as a cardboard spoon with which to eat meals. 4. Follow [facility] Management of the Admitted Behavioral Health Patient policy. 5. Comfort bath system only, shower permitted with escort and support at RN discretion. 6. No personal belongings. 7. Visitors: Per [facility] visitor policy and at RN discretion. 8. Activities: Soft cart items, television and other activities based on behavior and at RN discretion. 9. Bathroom privileges with escort in the ED; bathroom available in room without limitation on M/S. 10. Phone: via [facility] cordless phone. 11. Due to INVOLUNTARY status, patient is being held at [facility] by the Department of Mental Health (DM) until 2nd certification by [facility] Psychiatrist can be performed (within 24 hours). Staff will provide de-escalation support (CPI) as needed. If patient wishes to leave [facility], staff will contact [facility] Crisis Screener ([phone]) and On-Call Hematology Technician ([phone]) as soon as possible. In the event of elopement, notify [facility] Police ([phone]). Patient is currently involuntarily at [facility]. [facility] Frontline Intellectual Property Lawyer will reassess patient daily and will seek placement once patient is medically cleared. Please contact the Tank Setter Hematology Technician ([phone]) for any needed changes to Safety Plan. Safety plan has been provided to interdepartmental care team. Patient will be transported by rig site engineer at time of discharge.
--- NOTE | 2021-12-25 17:36 | W.PM.PROGNOT ---
Date of Service Date of service: 12/25/21 Time of Service: 16:37 Assessment and Plan Assessment and plan (1) Pathological fracture of humerus: Status: Acute Assessment and plan: Discussed with BRANDON Levy, orthopedics who stated the patient could be followed up as outpt. Certainly he is not able to d/c to home d/t his mental health state. Elevated light chains in urine. SPEP results comment: No apparent monoclonal protein seen on serum electrophoresis (2) Lytic lesion of bone on x-ray: Status: Acute Assessment and plan: As above (3) Acute UTI: Status: Acute Assessment and plan: Due to salazar-sensitive E. Coli, Present on admission. No evidence of obstructive uropathy or stones on CT. However, does have a distended bladder on CT. It is difficult to assess PVRs by bladder scans in patients with ascites, but we can try. Continue ceftriaxone. (4) Hyperammonemia: Status: Acute Assessment and plan: Now on lactulose and having greater than 4 BMs in 24 hours. Decreased dose interval from TID to BID dosing; parameters to hold second dose given. (5) Psychosis: Status: Acute Assessment and plan: H/o schizophrenia, per prior records. Presented because he had locked himself in his home d/t paranoia. Will treat medical issues that could be confounding the picture and administer zyprexa 15 mg PO QHS. [facility] MAR obtained. No antipsychotics currently prescribed. Likely hasn't been compliant with any home meds recently given his psychosis. PRN zyprexa during the day when he is impulsive and expansive in his mood. Improving. (6) Cirrhosis: Assessment and plan: Chronic, alcoholic. with evidence of portal hypertension, hyperammonemia, pancytopenia. The patient mentioned a GI bleed in the past. On propanolol. 2 gram sodium diet. (7) Pancytopenia: Assessment and plan: Monitor for bleeding. Avoid chemical DVT ppx. (8) Cholelithiasis: Status: Chronic Assessment and plan: No evidence of cholecystitis. No further workup necessary. (9) Dehydration: Status: Acute Assessment and plan: Noted on admission. Resolved and now maintaining adequate hydration with oral intake. (10) Discharge planning issues: Status: Acute Assessment and plan: Full code. Would benefit from further psychiatric care to stabilize him before outpt f/u with orthopedics. [facility] [place] [facility] evaluated and spoken with me about potential admission on Monday, 12/27. (11) DVT prophylaxis: Status: Acute Assessment and plan: SCDs. Avoid chemical DVT ppx in this patient who has evidence of cirrhosis and portal hypertension and states has had a GI bleed in the past. Subjective Subjective Patient reports: no new complaints, pain is less, tolerating a regular diet and afebrile Interval history since last seen: No behavioral issues today. Exam Narrative Exam Narrative: Sitting in chair watching TV Const General: cooperative and no acute distress Nutritional Appearance: average body habitus Orientation: alert, oriented to person and oriented to place [facility] Head: normocephalic and atraumatic Ears: hearing grossly normal bilaterally Eyes General: appearance normal, both eyes and all related structures Sclera: sclerae normal Resp Effort & Inspection: normal respiratory effort Auscultation: clear to auscultation bilaterally Cardio Rate: regular rate Rhythm: regular rhythm Heart Sounds: S1 normal and S2 normal Neuro General: no focal motor deficits Cranial Nerves: facial strength normal Extrem General: no pedal edema and no calf tenderness Right upper extremity: hand (Sling in place. ) Shoulder/upper arm images: 1. Area of swelling / hematoma Psych Appearance: grossly normal Speech and Movement: speech clear Mood: expansive Affect: euphoric affect Attitude: cooperative Thought Process: flight of ideas Thought Content: delusions Insight: poor Judgment: poor Objective Last Vital Signs Temp 36.6 C 12/25/21 12:15 Pulse 84 12/25/21 12:15 Resp 18 12/25/21 12:15 BP 164/82 H 12/25/21 12:15 Pulse Ox 98 12/25/21 12:15 Laboratory Results - last 24 hr 12/23/21 06:58 Free PSA <0.1 Total PSA 0.44 PSA Free/Total Ratio See Comment
[2021-12-25 19:13] VITALS: BP 115/80; PULSE 77; RESP 18; TEMP 36.6; O2SAT 97
[2021-12-25] MEDS: OLANZapine 10 MG, OLANZapine 5 MG 15 MG PO (21:17)
--- NOTE | 2021-12-25 21:33 | PDOC.MHCN_ITS ---
Date of service: 12/25/21 Time of Service: 20:34 Mental Health Crisis Note Presenting Issue How did you arrive at the ED and why did you come: Pt arrived via [facility] on a mental health warrant executed by this underwriter.? Precipitating Factors Pt denied SI and HI. He is experiencing some delusions. Disposition BEHAVIOR: Pt is cooperative and appropriate. He has poor insight and judgment. EYE CONTACT: Pt looks toward you but it is not clear if he is making eye contact with this clinician. MOOD: Pt's mood is labile as one minute he is calm and talking the next he is crying and weeping and then he is laughing. AFFECT: Affect is congruent with mood. APPETITE: Pt is reported to be eating. SLEEP(trouble falling/staying asleep: Pt has not slept [place]. Plan Pt will remain at [facility] as he is still meeting criteira for involuntary admission. He will be assessed twice daily by [facility]'s and referrals made. It is possible that the [facility] will accept him on Monday and the tatiana reviewing his chart. Signature Clinician's Name/Title: Maria Victoria Huynh MS, [facility] Emergency Services Clinician, [facility]
[2021-12-25] MEDS: Cefpodoxime 200 MG TAB PO (23:18)
[2021-12-25 23:42] VITALS: BP 131/87; PULSE 69; RESP 18; TEMP 36.1; O2SAT 97
[2021-12-26] MEDS: Acetaminophen 325 MG TAB PO ×3 (01:02→18:35)
[2021-12-26] MEDS: oxyCODONE 5 MG TAB PO ×3 (01:03→18:35)
[2021-12-26] MEDS: OLANZapine 2.5 MG TAB PO (09:22)
[2021-12-26] MEDS: Furosemide 20 MG TAB PO (09:22)
[2021-12-26] MEDS: Celecoxib 100 MG CAP PO ×2 (09:23→19:38)
[2021-12-26] MEDS: Propranolol 20 MG TAB PO ×2 (09:23→19:39)
[2021-12-26] MEDS: Cholecalciferol (Vitamin D3) 1,000 UNIT TAB 2000 UNITS PO (09:23)
[2021-12-26] MEDS: Thiamine 100 MG TAB PO (09:23)
[2021-12-26] MEDS: Cefpodoxime 200 MG TAB PO ×2 (09:23→21:56)
[2021-12-26] MEDS: Pantoprazole 40 MG TABCR PO (09:23)
[2021-12-26] MEDS: Clopidogrel 75 MG TAB PO (09:23)
[2021-12-26] MEDS: OLANZapine 5 MG TAB PO (10:30)
[2021-12-26 11:26] VITALS: BP 82/57; PULSE 63; RESP 19; TEMP 36.8; O2SAT 97
[2021-12-26 16:03] VITALS: BP 143/86; PULSE 82; RESP 18; TEMP 37.8; O2SAT 99
--- NOTE | 2021-12-26 16:26 | CMPROGNOTE_ITS ---
- If Service Date Differs Date of service: 12/26/21 Time of Service: 16:26 Care Management Progress Note S/O: Ramone was moved to the transition area today, as he is medically cleared for psychiatric placement. He remains involuntary. Per report, he continues to be tangential and disorganized in thoughts/speech. He is a VA patient, and the VA have been contacted by , who reported that the [facility] will consider him for transfer to their facility on Monday. He met with Maria Victoria today, who stated that he was agitated. Interdisciplinary huddle was held at 4:45pm, safety plan discussed- no changes to plan. CM will continue to follow. A: Ramone is a 66 year old male admitted to [facility] on 12/22/21 with Hepatic encephalopathy, UTI, pathological R humeral fracture. He is now being held involuntarily for psychiatric treatment. P: Ramone is being held involuntarily awaiting a transfer for psychiatric treatment. Per report, Ramone has been medically cleared, as his medical concerns can be addressed out patient, and his fracture is not operable. [facility] to [facility], [facility], [facility], [place]. There are no beds available today. The [facility] is considering Ramone for admission on Monday. Once accepted, his transport will be coordinated by [facility]. CM will continue to follow.
--- NOTE | 2021-12-26 16:32 | CMSP_ITS ---
- If Service Date Differs Date of service: 12/26/21 Time of Service: 16:32 Care Management Safety Plan Status: Involuntary - Reason for Wait Reason for Wait: Inpatient Admission Per MD: Patient is now medically cleared as medical concerns will be attended to on an outpatient basis. NATASHA: Ramone lives alone in an apartment in [facility]. He receives services through the MERCHANDISE TEAM MANAGER Program at [facility]. [facility] He arrived at [facility] on a Warrant for Emergency Examination due to agitation, psychosis, and refusal of treatment. DORI Irene at [facility] followed Ramone today. NATASHA also spoke with JONNY Romero who reported she followed up with all psychiatric facilities. No beds available today. Safety plan has been established to meet the needs of the patient, and consideration of the care team, to adhere to patient goals, identify restrictions based on behavioral status, address nutrition, and determine allowed personal belongings, tools for hygiene and personal care. Determine level of activity including ambulation, level of supervision, visitors, and determine privileges based on behaviors and level of engagement by pt. SAFETY PLAN: 1. Will remain on SI/HI precautions. In Paper Clothes 2. Will remain in room under direct supervision of one-on-one staff at all times provided by CPSO, MEAL ROOM HAND, WELDING SPECIALIST dope dry house operator. 3. May have paper cups, plates, finger foods as well as a cardboard spoon with which to eat meals. 4. Follow [facility] Management of the Admitted Behavioral Health Patient policy. 5. Comfort bath system only, shower permitted with escort and support at RN discretion. 6. No personal belongings. 7. Visitors: Per [facility] visitor policy and at RN discretion. 8. Activities: Soft cart items, television and other activities based on behavior and at RN discretion. He may walk around his room/transition area with supervision of CPSO. 9. Bathroom privileges with escort in the ED; bathroom available in room without limitation on M/S. 10. Phone: via [facility] [employer] phone. 11. Due to INVOLUNTARY status, patient is being held at [facility] by the Department of Mental Health (DM) until 2nd certification by [facility] Psychiatrist can be performed (within 24 hours). Staff will provide de-escalation support (CPI) as needed. If patient wishes to leave [facility], staff will contact [facility] Crisis Screener ([phone]) and On-Call Ingot Supervisor ([phone]) as soon as possible. In the event of elopement, notify [facility] Police ([phone]). Patient is currently involuntarily at [facility]. [facility] Frontline Biofuels Product Manager will reassess patient daily and will seek placement once patient is medically cleared. Please contact the Crusher Wet Ground Mica Ingot Supervisor ([phone]) for any needed changes to Safety Plan. Safety plan has been provided to interdepartmental care team. Patient will be transported by [employer] at time of discharge.
--- NOTE | 2021-12-26 17:31 | W.PM.PROGNOT ---
Date of Service Date of service: 12/26/21 Time of Service: 16:32 Assessment and Plan Assessment and plan (1) Pathological fracture of humerus: Status: Acute Assessment and plan: Discussed with BRANDON Levy, orthopedics who stated the patient could be followed up as outpt. Certainly he is not able to d/c to home d/t his mental health state. Elevated light chains in urine. SPEP results comment: No apparent monoclonal protein seen on serum electrophoresis (2) Lytic lesion of bone on x-ray: Status: Acute Assessment and plan: As above (3) Acute UTI: Status: Acute Assessment and plan: Due to salazar-sensitive E. Coli, Present on admission. No evidence of obstructive uropathy or stones on CT. However, does have a distended bladder on CT. It is difficult to assess PVRs by bladder scans in patients with ascites, but we can try. Continue ceftriaxone. (4) Hyperammonemia: Status: Acute Assessment and plan: Lactulose 15 gm BID. (5) Psychosis: Status: Acute Assessment and plan: H/o schizophrenia, per prior records. Presented because he had locked himself in his home d/t paranoia. Will treat medical issues that could be confounding the picture and administer zyprexa 15 mg PO QHS. [facility] MAR obtained. No antipsychotics currently prescribed. Likely hasn't been compliant with any home meds recently given his psychosis. Zyprexa 2.5mg daily add along with prn dosing during the day when he is impulsive and expansive in his mood. Improving. (6) Cirrhosis: Assessment and plan: Chronic, alcoholic. with evidence of portal hypertension, hyperammonemia, pancytopenia. The patient mentioned a GI bleed in the past. On propanolol. 2 gram sodium diet. (7) Pancytopenia: Assessment and plan: Monitor for bleeding. Avoid chemical DVT ppx. (8) Cholelithiasis: Status: Chronic Assessment and plan: No evidence of cholecystitis. No further workup necessary. (9) Discharge planning issues: Status: Acute Assessment and plan: Full code. Would benefit from further psychiatric care to stabilize him before outpt f/u with orthopedics. [facility] [place] [facility] and spoken with me about potential admission on Monday, 12/27. (10) DVT prophylaxis: Status: Acute Assessment and plan: SCDs. Avoid chemical DVT ppx in this patient who has evidence of cirrhosis and portal hypertension and states has had a GI bleed in the past. Subjective Subjective Patient reports: tolerating a regular diet and afebrile; denies nausea, vomiting or shortness of breath Interval history since last seen: Patient very active in early afternoon. Restless. Exam Narrative Exam Narrative: Sitting in chair watching TV Const General: cooperative and no acute distress Nutritional Appearance: average body habitus Orientation: alert, oriented to person and oriented to place [facility] Head: normocephalic and atraumatic Ears: hearing grossly normal bilaterally Eyes General: appearance normal, both eyes and all related structures Sclera: sclerae normal Resp Effort & Inspection: normal respiratory effort Auscultation: clear to auscultation bilaterally Cardio Rate: regular rate Rhythm: regular rhythm Heart Sounds: S1 normal and S2 normal Neuro General: no focal motor deficits Cranial Nerves: facial strength normal Extrem General: no pedal edema and no calf tenderness Right upper extremity: hand (Sling in place. ) Psych Appearance: grossly normal Speech and Movement: speech clear Mood: expansive Affect: euphoric affect Attitude: cooperative Thought Process: flight of ideas Thought Content: delusions Insight: poor Judgment: poor Objective Last Vital Signs Temp 37.8 C H 12/26/21 16:03 Pulse 82 12/26/21 16:03 Resp 18 12/26/21 16:03 BP 143/86 H 12/26/21 16:03 Pulse Ox 99 12/26/21 16:03 Laboratory Results - last 24 hr 12/26/21 12/26/21 09:00 09:00 WBC Cancelled RBC Cancelled Hgb Cancelled Hct Cancelled MCV Cancelled MCH Cancelled MCHC Cancelled RDW Cancelled Plt Count Cancelled MPV Cancelled Immature Gran % Cancelled Neutrophils % Cancelled Band Neutrophils % Cancelled Lymphocytes % Cancelled Atypical Lymphs % Cancelled Monocytes % Cancelled Eosinophils % Cancelled Basophils % Cancelled Metamyelocytes % Cancelled Myelocytes % Cancelled Promyelocytes % Cancelled Other Cells % Cancelled Nucleated RBC % Cancelled Absolute Neutrophils Cancelled Absolute Lymphocytes Cancelled Absolute Monocytes Cancelled Absolute Eosinophils Cancelled Absolute Basophils Cancelled RBC Morphology Cancelled Polychromasia Cancelled Hypochromasia Cancelled Poikilocytosis Cancelled Basophilic Stippling Cancelled Anisocytosis Cancelled Microcytosis Cancelled Macrocytosis Cancelled Spherocytes Cancelled Tear Drop Cells Cancelled Ovalocytes Cancelled Stomatocytes Cancelled [place] Bodies Cancelled Irwin Cells/Echinocytes Cancelled Acanthocytes (Spur) Cancelled Schistocytes Cancelled Sodium Cancelled Potassium Cancelled Chloride Cancelled Carbon Dioxide Cancelled Anion Gap Cancelled BUN Cancelled Creatinine Cancelled Estimated GFR/1.73 m2 Cancelled Glucose Cancelled Calcium Cancelled Total Bilirubin Cancelled AST Cancelled ALT Cancelled Alkaline Phosphatase Cancelled Total Protein Cancelled Albumin Cancelled
[2021-12-26 19:20] VITALS: BP 103/62; PULSE 79; RESP 22; TEMP 36.6; O2SAT 100
[2021-12-26] MEDS: LORazepam 1 MG TAB PO (19:39)
--- NOTE | 2021-12-26 21:38 | PDOC.MHCN ---
Date of service: 12/26/21 Time of Service: 20:38 Mental Health Crisis Note Presenting Issue How did you arrive at the ED and why did you come: Pt arrived via [facility] on a mental health warrant executed by this consumer loan underwriter.? Precipitating Factors Pt denied SI and HI.? He is experiencing an increase in delusions and paranoia today.? Disposition BEHAVIOR: Pt is agitated and unable to differentiate delusion form reality today. He is upset that someone took his drawings down and then speaks about toys inspector Gadget is not . I hid him in a safe place. I was looking out for you. Pt then became suspicious of this clinician's questions. He also spoke of a person being lost in a well and he was upset about this. EYE CONTACT: Pt made good eye contact. MOOD: See above AFFECT: worried and anxious. APPETITE: Pt has been eating fine. SLEEP(trouble falling/staying asleep: Pt is reported to have slept 6 hours last night. Plan Pt continues to meet criteria for inpatient treatment. He will be assessed twice daily by a [facility] from [facility] and remain at [facility] until placement is found. Pt was denied by Angie. Signature Clinician's Name/Title: Maria Victoria Huynh MS, [facility] Emergency Services Clinician, [facility]
[2021-12-26] MEDS: OLANZapine 10 MG, OLANZapine 5 MG 15 MG PO (21:56)
[2021-12-26 22:52] VITALS: RESP 22
[2021-12-27] MEDS: Thiamine 100 MG TAB PO (07:46)
[2021-12-27] MEDS: Clopidogrel 75 MG TAB PO (07:47)
[2021-12-27] MEDS: Propranolol 20 MG TAB PO ×2 (07:48→20:19)
[2021-12-27] MEDS: Celecoxib 100 MG CAP PO ×2 (07:48→20:19)
[2021-12-27] MEDS: Cholecalciferol (Vitamin D3) 1,000 UNIT TAB 2000 UNITS PO (07:48)
[2021-12-27 08:15] VITALS: BP 135/84; PULSE 66; RESP 17; TEMP 35.9; O2SAT 100
[2021-12-27] MEDS: Acetaminophen 325 MG TAB PO ×2 (08:36→21:37)
[2021-12-27] MEDS: oxyCODONE 5 MG TAB PO ×2 (08:37→21:37)
[2021-12-27] MEDS: Cefpodoxime 200 MG TAB PO ×2 (10:51→21:37)
[2021-12-27 11:43] VITALS: BP 110/77; PULSE 64; RESP 16; TEMP 35.1; O2SAT 100
--- NOTE | 2021-12-27 13:08 | NUR.NOTE ---
Patient currently in bathroom cleaning hands. Patient states, I know why you guys have me in here, it's because you guys just want to corner me and kill me. And reassured the patient that nobody here wants to hurt or kill him. We're here because we want him safe. Nursing Note:
[2021-12-27] MEDS: Furosemide 20 MG TAB PO (14:00)
[2021-12-27] MEDS: OLANZapine 2.5 MG TAB PO (14:00)
--- NOTE | 2021-12-27 14:11 | NUR.NOTE ---
Patient continues to wear arm sling improperly even though being educated on how to properly wear it and how his arm would benefit from being in the sling since he has a fracture. Patient is not complaining of pain at this time. Nursing Note:
--- NOTE | 2021-12-27 18:12 | CMSP_ITS ---
- If Service Date Differs Date of service: 12/27/21 Time of Service: 18:12 Care Management Safety Plan Status: Involuntary - Reason for Wait Reason for Wait: Inpatient Admission CM: Ramone lives alone in an apartment in [facility]. He receives services through the FUNERAL SALES MANAGER Program at [facility]. Ramone is a [facility] He arrived at [facility] on a Warrant for Emergency Examination due to agitation, psychosis, and refusal of treatment. DORI Carlos at [facility] followed Ramone today. NATASHA also spoke with JONNY Romero who reported she followed up with all psychiatric facilities. No beds available today. Safety plan has been established to meet the needs of the patient, and consideration of the care team, to adhere to patient goals, identify restrictions based on behavioral status, address nutrition, and determine allowed personal belongings, tools for hygiene and personal care. Determine level of activity including ambulation, level of supervision, visitors, and determine privileges based on behaviors and level of engagement by pt. SAFETY PLAN: 1. Will remain on SI/HI precautions. In Paper Clothes 2. Will remain in room under direct supervision of one-on-one staff at all times provided by CPSO, LADONNA, GERIATRIC SOCIAL WORK PROFESSOR special forces specialist. 3. May have paper cups, plates, finger foods as well as a cardboard spoon with which to eat meals. 4. Follow [facility] Management of the Admitted Behavioral Health Patient policy. 5. Comfort bath system, shower permitted with escort and support at RN discretion. 6. No personal belongings. 7. Visitors: Per [facility] visitor policy and at RN discretion. 8. Activities: Soft cart items, television and other activities based on behavior and at RN discretion. He may walk around his room/transition area with supervision of CPSO. 9. Bathroom privileges with escort in the ED; bathroom available in room without limitation on M/S. 10. Phone: via [facility] cordless phone. 11. Due to INVOLUNTARY status, patient is being held at [facility] by the Department of Mental Health (DM) until 2nd certification by [facility] Psychiatrist can be performed (within 24 hours). Staff will provide de-escalation support (CPI) as needed. If patient wishes to leave [facility], staff will contact [facility] Crisis Screener ([phone]) and On-Call It Applications Analyst ([phone]) as soon as possible. In the event of elopement, notify [facility] Police ([phone]). Patient is currently involuntarily at [facility]. [facility] Frontline Core Rescuer will reassess patient daily and will seek placement once patient is medically cleared. Please contact the Merchandise Displayer It Applications Analyst ([phone]) for any needed changes to Safety Plan. Safety plan has been provided to interdepartmental care team. Patient will be transported by health sciences program coordinator at time of discharge.
--- NOTE | 2021-12-27 18:12 | PDOC.CMSAFE ---
- If Service Date Differs Date of service: 12/27/21 Time of Service: 18:12 Care Management Safety Plan Status: Involuntary - Reason for Wait Reason for Wait: Inpatient Admission CM: Ramone lives alone in an apartment in [facility]. He receives services through the STONE SETTER APPRENTICE Program at [facility]. Ramone is a and [facility] He arrived at [facility] on a Warrant for Emergency Examination due to agitation, psychosis, and refusal of treatment. DORI Carlos at [facility] followed Ramone today. NATASHA also spoke with JONNY Romero who reported she followed up with all psychiatric facilities. No beds available today. Safety plan has been established to meet the needs of the patient, and consideration of the care team, to adhere to patient goals, identify restrictions based on behavioral status, address nutrition, and determine allowed personal belongings, tools for hygiene and personal care. Determine level of activity including ambulation, level of supervision, visitors, and determine privileges based on behaviors and level of engagement by pt. SAFETY PLAN: 1. Will remain on SI/HI precautions. In Paper Clothes 2. Will remain in room under direct supervision of one-on-one staff at all times provided by CPSO, LADONNA, BOILER ATTENDANT hand former. 3. May have paper cups, plates, finger foods as well as a cardboard spoon with which to eat meals. 4. Follow [facility] Management of the Admitted Behavioral Health Patient policy. 5. Comfort bath system, shower permitted with escort and support at RN discretion. 6. No personal belongings. 7. Visitors: Per [facility] visitor policy and at RN discretion. 8. Activities: Soft cart items, television and other activities based on behavior and at RN discretion. He may walk around his room/transition area with supervision of CPSO. 9. Bathroom privileges with escort in the ED; bathroom available in room without limitation on M/S. 10. Phone: via [facility] cordless phone. 11. Due to INVOLUNTARY status, patient is being held at [facility] by the Department of Mental Health (DM) until 2nd certification by [facility] Psychiatrist can be performed (within 24 hours). Staff will provide de-escalation support (CPI) as needed. If patient wishes to leave [facility], staff will contact [facility] Crisis Screener ([phone]) and On-Call Yarn Skeins Examiner ([phone]) as soon as possible. In the event of elopement, notify [facility] Police ([phone]). Patient is currently involuntarily at [facility]. [facility] Frontline Director Food Safety will reassess patient daily and will seek placement once patient is medically cleared. Please contact the Automatic Riveting Machine Operator Yarn Skeins Examiner ([phone]) for any needed changes to Safety Plan. Safety plan has been provided to interdepartmental care team. Patient will be transported by manager at time of discharge.
--- NOTE | 2021-12-27 19:25 | NUR.NOTE ---
Nursing Note: heard pt using wipes, checked to see which ones they were because the normal bathroom wipes were on the windowsil, check and they were the hand sanatizer wipes, i tried to educate the pt that thoose were only for your hands and he told me no they were to wipe his bottom, I informed him that no they weren't, pt didn't want to listen to me so I informed the nurse about what was going on.
--- NOTE | 2021-12-27 20:01 | W.PM.PROGNOT ---
Date of Service Date of service: 12/27/21 Time of Service: 19:01 Assessment and Plan Assessment and plan (1) Pathological fracture of humerus: Status: Acute Assessment and plan: Discussed with BRANDON Levy, orthopedics who stated the patient could be followed up as outpt. Certainly he is not able to d/c to home d/t his mental health state. Elevated light chains in urine. SPEP results comment: No apparent monoclonal protein seen on serum electrophoresis Unclear etiology of bony lesions. Will need oncology f/u when psychiatrically stable. (2) Lytic lesion of bone on x-ray: Status: Acute Assessment and plan: As above (3) Acute UTI: Status: Acute Assessment and plan: Due to salazar-sensitive E. Coli, Present on admission. No evidence of obstructive uropathy or stones on CT. However, does have a distended bladder on CT. Now intransition room so no IV access. Changed from Rocephin (had 3 doses) to cefpodoxime. (4) Hyperammonemia: Status: Acute Assessment and plan: Lactulose 15 gm BID. (5) Psychosis: Status: Acute Assessment and plan: H/o schizophrenia, per prior records. Presented because he had locked himself in his home d/t paranoia. Will treat medical issues that could be confounding the picture and administer zyprexa 15 mg PO QHS. [facility] MAR obtained. No antipsychotics currently prescribed. Likely hasn't been compliant with any home meds recently given his psychosis. Zyprexa 2.5mg daily add along with prn dosing during the day when he is impulsive and expansive in his mood. Improving. (6) Cirrhosis: Assessment and plan: Chronic, alcoholic. with evidence of portal hypertension, hyperammonemia, pancytopenia. The patient mentioned a GI bleed in the past. On propanolol. 2 gram sodium diet. (7) Pancytopenia: Assessment and plan: Monitor for bleeding. Avoid chemical DVT ppx. (8) Cholelithiasis: Status: Chronic Assessment and plan: No evidence of cholecystitis. No further workup necessary. (9) Discharge planning issues: Status: Acute Assessment and plan: Full code. Would benefit from further psychiatric care to stabilize him before outpt f/u with orthopedics. [facility] [place] [facility] evaluated and spoken with me about potential admission; they now have a Covid outbreak which will delay his acceptance. (10) DVT prophylaxis: Status: Acute Assessment and plan: Ambulating very frequently No chemical prophylaxis or SCDs/TEDs. Subjective Subjective Patient reports: no new complaints, tolerating a regular diet and afebrile; denies nausea or vomiting Exam Narrative Exam Narrative: Sitting in chair watching TV Const General: cooperative and no acute distress Nutritional Appearance: average body habitus Orientation: alert, oriented to person and oriented to place [facility] Head: normocephalic and atraumatic Ears: hearing grossly normal bilaterally Eyes General: appearance normal, both eyes and all related structures Sclera: sclerae normal Resp Effort & Inspection: normal respiratory effort Auscultation: clear to auscultation bilaterally Cardio Rate: regular rate Rhythm: regular rhythm Heart Sounds: S1 normal and S2 normal Neuro General: no focal motor deficits Cranial Nerves: facial strength normal Extrem General: no pedal edema and no calf tenderness Right upper extremity: hand (Sling in place. ) Psych Appearance: grossly normal Speech and Movement: speech clear Mood: expansive Affect: euphoric affect Attitude: cooperative Thought Process: flight of ideas Thought Content: delusions Insight: poor Judgment: poor Objective Last Vital Signs Temp 35.1 C L 12/27/21 11:43 Pulse 64 12/27/21 11:43 Resp 16 12/27/21 11:43 BP 110/77 12/27/21 11:43 Pulse Ox 100 12/27/21 11:43 Laboratory Results - last 24 hr 12/26/21 12/26/21 16:21 Unknown WBC Cancelled RBC Cancelled Hgb Cancelled Hct Cancelled MCV Cancelled MCH Cancelled MCHC Cancelled RDW Cancelled Plt Count Cancelled MPV Cancelled Sodium Cancelled Potassium Cancelled Chloride Cancelled Carbon Dioxide Cancelled Anion Gap Cancelled BUN Cancelled Creatinine Cancelled Estimated GFR/1.73 m2 Cancelled Glucose Cancelled Calcium Cancelled Total Bilirubin Cancelled AST Cancelled ALT Cancelled Alkaline Phosphatase Cancelled Total Protein Cancelled Albumin Cancelled
[2021-12-27] MEDS: Lactulose 20 GM/30 ML CUP 15 GM PO (20:19)
[2021-12-27 20:26] VITALS: BP 102/73; PULSE 79; RESP 16; TEMP 36.9; O2SAT 97
[2021-12-27] MEDS: OLANZapine 10 MG, OLANZapine 5 MG 15 MG PO (21:37)
[2021-12-28] MEDS: LORazepam 1 MG TAB PO ×4 (00:38→22:30)
[2021-12-28] MEDS: Celecoxib 100 MG CAP PO ×2 (08:36→20:28)
[2021-12-28] MEDS: Lactulose 20 GM/30 ML CUP 15 GM PO ×2 (08:36→20:28)
[2021-12-28] MEDS: OLANZapine 2.5 MG TAB PO (08:36)
[2021-12-28] MEDS: Propranolol 20 MG TAB PO ×2 (08:37→20:27)
[2021-12-28] MEDS: Pantoprazole 40 MG TABCR PO (08:37)
[2021-12-28] MEDS: Thiamine 100 MG TAB PO (08:37)
[2021-12-28] MEDS: Furosemide 20 MG TAB PO (08:37)
[2021-12-28] MEDS: Clopidogrel 75 MG TAB PO (08:37)
[2021-12-28] MEDS: Cefpodoxime 200 MG TAB PO (08:37)
[2021-12-28] MEDS: Cholecalciferol (Vitamin D3) 1,000 UNIT TAB 2000 UNITS PO (08:37)
[2021-12-28 08:53] VITALS: BP 121/69; PULSE 72; RESP 18; TEMP 35.9; O2SAT 98
--- NOTE | 2021-12-28 09:09 | DI.RAD_ITS ---
Exam(s) XR SHOULDER RT COMPLETE 2+V EXAM: XR SHOULDER RT COMPLETE 2+V CLINICAL HISTORY: Fracture. TECHNIQUE: 2D digital imaging was performed. COMPARISON: CR,XR XR SHOULDER RT COMPLETE 2+V from 12/21/2021 FINDINGS: 3 views Again noted is the displaced fracture the humeral head-neck junction level. The diaphysis of the humerus is displaced anterior to the humeral head which remains within the osseo us glenoid fossa, albeit exhibiting some inferior subluxation in the glenoid fossa. IMPRESSION: DATA REPOSITORY: RADIATION DOSE DELIVERED:
--- NOTE | 2021-12-28 09:26 | CMSP_ITS ---
- If Service Date Differs Date of service: 12/28/21 Time of Service: 09:26 Care Management Safety Plan Status: Involuntary - Reason for Wait Reason for Wait: Inpatient Admission CM: Ramone lives alone in an apartment in [facility]. He receives services through the RECONDITIONING ASSOCIATE Program at [facility]. Ram[facility] a [facility] at [facility] on a Warrant for Emergency Examination due to agitation, psychosis, and refusal of treatment. DORI Carlos at [facility] followed Ramone today. NATASHA also spoke with JONNY Catherine who reported the [facility] is attempting to accept Ramone for [facility]; CM relayed needs to Dr. Stern and provided MD-MD information including request for ortho information, sling recommendations, COVID test, blood panel and behavioral review, requested by Dr. Olguin [phone]. INVOLUNTARY Safety plan has been established to meet the needs of the patient, and consideration of the care team, to adhere to patient goals, identify restrictions based on behavioral status, address nutrition, and determine allowed personal belongings, tools for hygiene and personal care. Determine level of activity including ambulation, level of supervision, visitors, and determine privileges based on behaviors and level of engagement by pt. SAFETY PLAN: 1. Will remain on SI/HI precautions. In Paper Clothes 2. Will remain in room under direct supervision of one-on-one staff at all times provided by CPSO, TABLE MAKER, BIOFUELS TECHNOLOGY MANAGER color card maker. 3. May have paper cups, plates, finger foods as well as a cardboard spoon with which to eat meals. 4. Follow [facility] Management of the Admitted Behavioral Health Patient policy. 5. Comfort bath system, shaving via TABLE MAKER with safety razor and staff support, shower permitted with escort and support at RN discretion. 6. No personal belongings. 7. Visitors: Per [facility] visitor policy and at RN discretion. 8. Activities: Soft cart items, television and other activities based on behavior and at RN discretion. He may walk around his room/transition area with supervision of CPSO. 9. Bathroom privileges with escort in the ED; bathroom available in room without limitation on M/S. 10. Phone: via [facility] cordless phone. 11. Due to INVOLUNTARY status, patient is being held at [facility] by the Department of Mental Health (DM) until 2nd certification by [facility] Psychiatrist can be performed (within 24 hours). Staff will provide de-escalation support (CPI) as needed. If patient wishes to leave [facility], staff will contact [facility] Crisis Screener ([phone]) and On-Call Panel Wirer ([phone]) as soon as possible. In the event of elopement, notify [facility] Police ([phone]). Patient is currently involuntarily at [facility]. [facility] Frontline Chief Clerk will reassess patient daily and will seek placement once patient is medically cleared. Please contact the Senior Cost Accountant Panel Wirer ([phone]) for any needed changes to Safety Plan. Safety plan has been provided to interdepartmental care team. Patient will be transported by [facility] at time of discharge.
--- NOTE | 2021-12-28 09:26 | PDOC.CMSAFE ---
- If Service Date Differs Date of service: 12/28/21 Time of Service: 09:26 Care Management Safety Plan Status: Involuntary - Reason for Wait Reason for Wait: Inpatient Admission CM: Ramone lives alone in an apartment in [facility]. He receives services through the KENO TERMINAL OPERATOR Program at [facility]. Ramone is a and [facility] He arrived at [facility] on a Warrant for Emergency Examination due to agitation, psychosis, and refusal of treatment. DORI Carlos at [facility] followed Ramone today. NATASHA also spoke with JONNY Catherine who reported the [facility] is attempting to accept Ramone for admission; CM relayed needs to Dr. Stern and provided MD-MD information including request for ortho information, sling recommendations, COVID test, blood panel and behavioral review, requested by Dr. Olguin [phone]. INVOLUNTARY Safety plan has been established to meet the needs of the patient, and consideration of the care team, to adhere to patient goals, identify restrictions based on behavioral status, address nutrition, and determine allowed personal belongings, tools for hygiene and personal care. Determine level of activity including ambulation, level of supervision, visitors, and determine privileges based on behaviors and level of engagement by pt. SAFETY PLAN: 1. Will remain on SI/HI precautions. In Paper Clothes 2. Will remain in room under direct supervision of one-on-one staff at all times provided by CPSO, SPORTS MEDICINE TRAINER, JANITOR HEAD hat body inspector. 3. May have paper cups, plates, finger foods as well as a cardboard spoon with which to eat meals. 4. Follow [facility] Management of the Admitted Behavioral Health Patient policy. 5. Comfort bath system, shaving via SPORTS MEDICINE TRAINER with safety razor and staff support, shower permitted with escort and support at RN discretion. 6. No personal belongings. 7. Visitors: Per [facility] visitor policy and at RN discretion. 8. Activities: Soft cart items, television and other activities based on behavior and at RN discretion. He may walk around his room/transition area with supervision of CPSO. 9. Bathroom privileges with escort in the ED; bathroom available in room without limitation on M/S. 10. Phone: via [facility] cordless phone. 11. Due to INVOLUNTARY status, patient is being held at [facility] by the Department of Mental Health (DM) until 2nd certification by [facility] Psychiatrist can be performed (within 24 hours). Staff will provide de-escalation support (CPI) as needed. If patient wishes to leave [facility], staff will contact [facility] Crisis Screener ([phone]) and On-Call Alley Worker ([phone]) as soon as possible. In the event of elopement, notify [facility] Police ([phone]). Patient is currently involuntarily at [facility]. [facility] Frontline Contemporary Or Modern Dancer will reassess patient daily and will seek placement once patient is medically cleared. Please contact the Precision Mechanical Instrument Maker Alley Worker ([phone]) for any needed changes to Safety Plan. Safety plan has been provided to interdepartmental care team. Patient will be transported by [facility] at time of discharge.
[2021-12-28] MEDS: Acetaminophen 325 MG TAB PO ×2 (09:39→20:28)
[2021-12-28] MEDS: oxyCODONE 5 MG TAB PO ×2 (09:40→22:39)
--- NOTE | 2021-12-28 12:09 | NUR.NOTE ---
Patient stated that he does not want to shower. He wants to get washed up in his bathroom where the water is pure Nursing Note:
--- NOTE | 2021-12-28 14:18 | PGE_ITS ---
Date of Service Date of service: 12/28/21 Time of Service: 13:18 Assessment and Plan Assessment and plan (1) Psychosis: Status: Acute Assessment and plan: patient still w/ delusions. I spoke w/ Dr. Olguin, [facility] at the [facility] in [place], [place], she recommends titration of his olanzapine. She does not feel that they will be able to meet his medical needs and transfer him to medicine service once his acute paranoia has resolved. I told her that ortho at [facility] indicated that they can follow him as outpatient. The patient has been non-adherent to our recommendations to use of sling and swath even during the day time. I have increased his olanzapine to 5 mg during the day and continue his olanzapine 15 mg at night. will continue to monitor his CBC and LFT's (2) Paranoid delusion: Status: Acute Assessment and plan: as above. At present, patient has been taking his meds as requested. (3) Lytic lesion of bone on x-ray: Status: Acute Assessment and plan: SPEP did not demonstrate a monoclonal light chain and his PSA was normal. His vitamin D level is low at 12.9. He was put on vitamin D 2000 IU daily however, I will put him on vitamin D 50,000 units weekly and calcium carbonate 1500 mg bid. He needs further workup and treatment but this can be done as outpatient (4) Pathological fracture of humerus: Status: Acute Assessment and plan: as above (5) Pancytopenia: Assessment and plan: probably d/t his underlying cirrhosis/alcoholic liver disease. Will monitor particularly being on olanzapine (6) Anemia: Assessment and plan: as above. will treat w/ iron sulfate and MVS, and folate and thiamine (7) Cirrhosis: (8) Hyperammonemia: Status: Acute Assessment and plan: continue lactulose (9) Acute UTI: Status: Resolved Assessment and plan: patient had UTI from salazar-sensitive E. coli which was treated w/ Rocephin 12/22- 12/25 and cefpodoxime from evening of 12/25 to present. This should be more than adequate treatment of his UIT. I will stop the cefpodoxime and repeat his UA. (10) DVT prophylaxis: Status: Acute Assessment and plan: not a candidate for chemoprophylaxis. he is ambulatory (11) Discharge planning issues: Status: Acute Assessment and plan: [facility] will not take him at this point and feel that his antipsychotics can be adjusted here. Subjective Subjective Interval history since last seen: Cooperative with taking his medications. He is currently on olanzapine 15 mg at bedtime and 2.5 mg during the day. He also has as needed dosing of olanzapine at 5 mg every 8 hours as needed for severe agitation and delirium. Patient doing cooperative with taking his olanzapine. Despite this she still psychotic. He does not recognize the need to keep his right arm in a sling despite the pathologic proximal humerus fracture. When I evaluated him today he had his arm out of sling holding the sling with the opposite hand just allowing the right arm to hang down. He states he is pulling of his strength in his right arm and was able to complete a but he cannot recall what he was on animal or human. I discussed his case with the [facility] psychiatrist Dr. Olguin who indicated to me that their concern is that because he has medical issues with the pathologic fracture that once they have him stabilized on his antipsychotic medications that they would not be able to transfer him over to the medical service. She recommended that we titrate his olanzapine he can go up to as high as 50 mg a day. I will increase his daytime dose of olanzapine to 5 mg and continue the 15 mg at bedtime. We will continue to monitor his daily labs. Exam Narrative Exam Narrative: Mr. Meeks is alert but oriented only to person not to place or circumstance or time. I met him standing on the hallway holding onto his sling in his hand but with his right arm out of the sling. He has obvious deformity of the proximal humerus and swelling and bruising of the proximal humerus Objective Last Vital Signs Temp 35.9 C L 12/28/21 08:53 Pulse 72 12/28/21 08:53 Resp 18 12/28/21 08:53 BP 121/69 12/28/21 08:53 Pulse Ox 98 12/28/21 08:53
[2021-12-28 15:07] VITALS: BP 98/63; PULSE 64; RESP 17; TEMP 36; O2SAT 100
--- NOTE | 2021-12-28 19:16 | PT.INNT ---
Date of service: 12/28/21 PT Notes Visit Reasons: Hepatic encephalopathy,UTI,Pathologic R humeral Per review of hospitalist's and caser shoe parts's notes, patient remains to be not appropriate for PT services due to psychiatric status. Will discharge PT order dated 12/22/2021. PT evaluation was done on 12/24/2021 with contiunation of services contingent upon patient's ability to effectively participate in therapy. Will await new referral should hospitalist find patient appropriate for services. Thank you for the opportunity to participate in the care of this patient. Neda Correa PT, DPT, CLT [facility] [place], [place]
[2021-12-28] MEDS: Ferrous Sulfate 325 MG TAB PO (20:28)
[2021-12-28] MEDS: Calcium Carbonate 1.5 GM TAB PO (20:28)
[2021-12-28 23:40] VITALS: BP 126/86; PULSE 68; RESP 18; TEMP 35.8; O2SAT 98
--- NOTE | 2021-12-29 07:59 | NUR.NOTE ---
Nursing Note: 0725: RN in with pt upon wakening. pt communicating well with staff. pt asks do you need another urine sample?, RN reports that one is not needed at this time. pt goes into bathroom to void but continues to hold a conversation with staff. pt noted to void, turn around to speak to RN, while flushing toilet, pt has insight to stop conversation while toilet is flushing and once flushing complete, pt resumes conversation with RN. pt ambulatory in room with steady gait, pt demonstrates no s/s of pain at this time. LADONNA Brian is sitting with pt at this time.
[2021-12-29] MEDS: Celecoxib 100 MG CAP PO ×2 (08:37→19:33)
[2021-12-29] MEDS: Propranolol 20 MG TAB PO ×2 (08:37→19:33)
[2021-12-29] MEDS: Furosemide 20 MG TAB PO (08:37)
[2021-12-29] MEDS: Thiamine 100 MG TAB PO (08:37)
[2021-12-29] MEDS: OLANZapine 2.5 MG TAB 5 MG PO (08:37)
[2021-12-29] MEDS: Clopidogrel 75 MG TAB PO (08:37)
[2021-12-29] MEDS: Multivitamin TAB 1 TAB PO (08:37)
[2021-12-29] MEDS: Calcium Carbonate 1.5 GM TAB PO ×2 (08:37→19:33)
[2021-12-29] MEDS: Ferrous Sulfate 325 MG TAB PO ×2 (08:37→19:33)
[2021-12-29] MEDS: Pantoprazole 40 MG TABCR PO (08:37)
[2021-12-29] MEDS: Lactulose 20 GM/30 ML CUP 15 GM PO ×2 (08:38→19:33)
[2021-12-29] MEDS: Folic Acid 1 MG TAB PO (08:38)
[2021-12-29] MEDS: Ergocalciferol 50000 UNITS CAP PO (08:45)
--- NOTE | 2021-12-29 09:16 | OT.INNT ---
Occupational Therapy Notes 12/29/21 Per review of hospitalist's and CM notes,? patient remains to be not appropriate for OT services due to psychiatric status.? OT will plan to discharge pt from skilled OT services at this time. If hospitalist finds that pt is appropriate, OT will need a new referral. Sulma Payne, OTR/L
[2021-12-29 09:25] VITALS: BP 103/73; PULSE 77; RESP 17; TEMP 35.9; O2SAT 100
[2021-12-29 09:31] LABS: Bilirubin Negative (Negative); Blood Negative (Negative); Clarity Clear (Clear); Glucose Negative (Negative); Ketones Negative (Negative); Leukocyte Esterase Negative (Negative); Nitrite Negative (Negative); Specific Gravity 1.025 (1.005-1.025); Urobilinogen 0.2 EU/dL (Up TO 0.2); pH 6.5 (5-8)
[2021-12-29] MEDS: LORazepam 1 MG TAB PO ×3 (11:57→22:38)
[2021-12-29] MEDS: Acetaminophen 325 MG TAB PO ×2 (11:57→20:29)
--- NOTE | 2021-12-29 12:16 | CMSP_ITS ---
- If Service Date Differs Date of service: 12/29/21 Time of Service: 12:16 Care Management Safety Plan Status: Involuntary - Reason for Wait Reason for Wait: Inpatient Admission CM: Ramone lives alone in an apartment in [facility]. He receives services through the BIOMEDICAL MANAGER Program at [facility]. Ramone is a and [facility] He arrived at [facility] on a Warrant for Emergency Examination due to agitation, psychosis, and refusal of treatment. DORI Irene at [facility] followed Ramone today. The [facility] reviewed Ramone for possible psychiatric admission but declined him as they determined they would be unable to manage his medical needs. Linnea Sarkar, primary care nurse at [facility], is pursuing possible admission to [place]. . INVOLUNTARY Safety plan has been established to meet the needs of the patient, and consideration of the care team, to adhere to patient goals, identify restrictions based on behavioral status, address nutrition, and determine allowed personal belongings, tools for hygiene and personal care. Determine level of activity including ambulation, level of supervision, visitors, and determine privileges based on behaviors and level of engagement by pt. SAFETY PLAN: 1. Will remain on SI/HI precautions. In Paper Clothes 2. Will remain in room under direct supervision of one-on-one staff at all times provided by CPSO, MARKETING CONSULTANT, OCCUPATIONAL HEALTH PHYSIOTHERAPIST restorer paper and prints. 3. May have paper cups, plates, finger foods as well as a cardboard spoon with which to eat meals. 4. Follow [facility] Management of the Admitted Behavioral Health Patient policy. 5. Comfort bath system, shaving via MARKETING CONSULTANT with safety razor and staff support, shower permitted with escort and support at RN discretion. 6. No personal belongings. 7. Visitors: Per [facility] visitor policy and at RN discretion. 8. Activities: Soft cart items, television and other activities based on behavior and at RN discretion. He may walk around his room/transition area with supervision of CPSO. 9. Bathroom privileges with escort in the ED; bathroom available in room without limitation on M/S. 10. Phone: via [facility] cordless phone. 11. Due to INVOLUNTARY status, patient is being held at [facility] by the Department of Mental Health ([facility]) until 2nd certification by [facility] Psychiatrist can be performed (within 24 hours). Staff will provide de-escalation support (CPI) as needed. If patient wishes to leave [facility], staff will contact [facility] Crisis Screener ([phone]) and On-Call Geoscience Technician ([phone]) as soon as possible. In the event of elopement, notify [facility] Police ([phone]). Patient is currently involuntarily at [facility]. [facility] Frontline Measurement Superintendent will reassess patient daily and will seek placement once patient is medically cleared. Please contact the Rodding Anode Worker Geoscience Technician ([phone]) for any needed changes to Safety Plan. Safety plan has been provided to interdepartmental care team. Patient will be transported by houseperson at time of discharge.
--- NOTE | 2021-12-29 12:16 | PDOC.CMSAFE ---
- If Service Date Differs Date of service: 12/29/21 Time of Service: 12:16 Care Management Safety Plan Status: Involuntary - Reason for Wait Reason for Wait: Inpatient Admission CM: Ramone lives alone in an apartment in [facility]. He receives services through the SCISSORS GRINDER Program at [facility]. Ramone is a and [facility]. He arrived at [facility] on a Warrant for Emergency Examination due to agitation, psychosis, and refusal of treatment. DORI Irene at [facility] followed Ramone today. The [facility] reviewed Ramone for possible psychiatric admission but declined him as they determined they would be unable to manage his medical needs. Linnea Sarkar, career discovery teacher at [facility], is pursuing possible admission to [place]. . INVOLUNTARY Safety plan has been established to meet the needs of the patient, and consideration of the care team, to adhere to patient goals, identify restrictions based on behavioral status, address nutrition, and determine allowed personal belongings, tools for hygiene and personal care. Determine level of activity including ambulation, level of supervision, visitors, and determine privileges based on behaviors and level of engagement by pt. SAFETY PLAN: 1. Will remain on SI/HI precautions. In Paper Clothes 2. Will remain in room under direct supervision of one-on-one staff at all times provided by CPSO, NAPHTHALENE OPERATOR, CURRENCY EXAMINER material preparation worker. 3. May have paper cups, plates, finger foods as well as a cardboard spoon with which to eat meals. 4. Follow [facility] Management of the Admitted Behavioral Health Patient policy. 5. Comfort bath system, shaving via NAPHTHALENE OPERATOR with safety razor and staff support, shower permitted with escort and support at RN discretion. 6. No personal belongings. 7. Visitors: Per [facility] visitor policy and at RN discretion. 8. Activities: Soft cart items, television and other activities based on behavior and at RN discretion. He may walk around his room/transition area with supervision of CPSO. 9. Bathroom privileges with escort in the ED; bathroom available in room without limitation on M/S. 10. Phone: via [facility] cordless phone. 11. Due to INVOLUNTARY status, patient is being held at [facility] by the Department of Mental Health ([facility]) until 2nd certification by [facility] Psychiatrist can be performed (within 24 hours). Staff will provide de-escalation support (CPI) as needed. If patient wishes to leave [facility], staff will contact [facility] Crisis Screener ([phone]) and On-Call Profiling Machine Setup Operator ([phone]) as soon as possible. In the event of elopement, notify [facility] Police ([phone]). Patient is currently involuntarily at [facility]. [facility] Frontline Ocean Export Agent will reassess patient daily and will seek placement once patient is medically cleared. Please contact the Operations Representative Profiling Machine Setup Operator ([phone]) for any needed changes to Safety Plan. Safety plan has been provided to interdepartmental care team. Patient will be transported by senior developer at time of discharge.
--- NOTE | 2021-12-29 13:50 | W.PM.PROGNOT ---
Date of Service Date of service: 12/29/21 Time of Service: 12:50 Assessment and Plan Assessment and plan (1) Psychosis: Status: Acute Assessment and plan: Patient is still has paranoid delusions. He remains under EE admission. Continue to adjust his olanzapine. I will increase his olanzapine to 20 mg at night but keep the 5 mg during the daytime. (2) Paranoid delusion: Status: Acute Assessment and plan: as above. At present, patient has been taking his meds as requested. (3) Lytic lesion of bone on x-ray: Status: Acute Assessment and plan: SPEP did not demonstrate a monoclonal light chain and his PSA was normal. His vitamin D level is low at 12.9. He was put on vitamin D 2000 IU daily however, I will put him on vitamin D 50,000 units weekly and calcium carbonate 1500 mg bid. He needs further workup and treatment but this can be done as outpatient (4) Pathological fracture of humerus: Status: Acute Assessment and plan: as above (5) Pancytopenia: Assessment and plan: probably d/t his underlying cirrhosis/alcoholic liver disease. Will monitor particularly being on olanzapine (6) Anemia: Assessment and plan: as above. will treat w/ iron sulfate and MVS, and folate and thiamine (7) Cirrhosis: (8) Hyperammonemia: Status: Acute Assessment and plan: continue lactulose (9) DVT prophylaxis: Status: Acute Assessment and plan: not a candidate for chemoprophylaxis. he is ambulatory (10) Discharge planning issues: Status: Acute Assessment and plan: [facility] will not take him at this point and feel that his antipsychotics can be adjusted here. Subjective Subjective Interval history since last seen: Patient is currently napping. Nursing staff reports that he had a good night no agitation. However today staff says he still hallucinates. They had to turn off the TV he was watching basketball was trying to jump up and catch the ball on the screen. Patient has been noncompliant with wearing his sling and swath. Exam Narrative Exam Narrative: Patient currently a nap and lying on his left side. Objective Last Vital Signs Temp 35.9 C L 12/29/21 09:25 Pulse 77 12/29/21 09:25 Resp 17 12/29/21 09:25 BP 103/73 12/29/21 09:25 Pulse Ox 100 12/29/21 09:25 Laboratory Results - last 24 hr 05/18/22 05:00 Urine Color Yellow Urine Clarity Clear Urine pH 6.5 Ur Specific [place] 1.025 Urine Protein Negative Urine Ketones Negative Urine Blood Negative Urine Nitrite Negative Urine Bilirubin Negative Urine Urobilinogen 0.2 Ur Leukocyte Esterase Negative Urine Glucose Negative
[2021-12-29 14:59] VITALS: BP 110/67; PULSE 73; RESP 16; TEMP 36.5; O2SAT 96
--- NOTE | 2021-12-29 20:06 | PDOC.MHCN ---
Date of service: 12/29/21 Time of Service: 19:06 Mental Health Crisis Note Presenting Issue How did you arrive at the ED and why did you come: Pt arrived via a mental health Warrant written by this clinician. Precipitating Factors Pt denied SI and HI. He is experiencing delusions i.e. thinking he is a doctor to this clinician and a woman he observes on TV and has invented a pill to take away menstrual cramps for women on their menses. Disposition BEHAVIOR: Cooperative and joking. He has no insight to his illness at this time and is defiantly influenced by his symptoms of his illness. EYE CONTACT: Good eye contact today. MOOD: Happy this am and a bit more agitated this afternoon due to having to eat with a paper spoon that does not hold up to the food he is eating. AFFECT: Congruent with his mood. APPETITE: Pt is eating well. SLEEP(trouble falling/staying asleep: Pt reported sleeping 4 hours last night and was napping when this clinician arrived this afternoon. Plan Pt was accepted by [facility] and will be transported at 8am on 12.30.2021. [facility] secured transport. Signature Clinician's Name/Title: Maria Victoria Huynh MS, [facility] Emergency Services Clinician, [facility]
--- NOTE | 2021-12-29 21:37 | DSE_ITS ---
Date of service: 12/30/21 Time of Service: 07:00 DS: Diagnosis Discharge Diagnosis (1) Psychosis: Status: Acute Asessment and Plan: patient was begun on olanzapine 15 mg HS and 2.5 mg daily which was titrated up to 20 mg HS and 5 mg daily. He tolerated this dose well. Telephone consultation was obtained w/ Dr. Olguin from psychiatry at [facility] in [place] who provided recommendations on titration. Unfortunately they did not have staff capacity to accept him and did not have the medical support to evaluate and treat his pathologic fractures. Patient has been improving on this recent dosing of olanzapine. (2) Paranoid delusion: Status: Acute (3) Lytic lesion of bone on x-ray: Status: Acute Asessment and Plan: patient has lytic fracture of the proximal right humerus but also has thoracic vertebral fractures as well (4) Pathological fracture of humerus: Status: Acute Asessment and Plan: pathologic proximal right humerus fracture that is displaced and associated w/ surround mass (5) Pathologic fracture of thoracic vertebrae: Status: Acute (6) Pancytopenia: (7) Anemia: Asessment and Plan: patient was begun on iron supplementation to treat iron deficiency anemia (8) Cirrhosis: Asessment and Plan: patient was monitored for alcohol withdrawal but never exhibited signs or symptoms of the same. He was put on thiamine, folic acide and MVS. (9) Hyperammonemia: Status: Acute Asessment and Plan: patient was started on lacutlose to control his hyperammonemia. Discharge Plan Disposition Patient Disposition: [facility] Condition: Improving Discharge Details Reason For Visit: Hepatic encephalopathy,UTI,Pathologic R humeral Admit Date/Time: 12/22/21 13:36 Admit Provider: Yue Moran Attending Provider: Yue Moran Primary Care Provider: None,None Hospital Course Hospital Course: 66-year-old male with a history of schizophrenia, alcoholic cirrhosis, hypothyroidism who was brought to [facility] ED by ambulance after well visit to his residence where he locked himself in for an extended period of time. He was found to be neglecting himself and found to be in an acute psychotic state. In the emergency department he underwent an emergency evaluation and was admitted involuntarily. He had evidence of bruising and swelling on his right arm and ecchymosis over his abdomen and back. Imaging of his right shoulder showed displaced proximal humeral fracture that appear to be pathologic from CT scan of his chest. CT of the abdomen pelvis revealed cirrhosis and portal hypertension and a distended gallbladder with gallstones but no evidence of acute cholecystitis. Surgical opinion was rendered indicating that this is probably cirrhosis and ascites but not acute cholecystitis. Urinalysis suggested UTI and he was initiated on ceftriaxone. He had no evidence of obstructive uropathy or stones on CT scan. He was found to be hypotensive in the emergency department with systolic blood pressures in the 80s and 90s. He was treated with IV fluids. He was found to have elevated ammonia level in the emergency department was started on lactulose. Psychiatry evaluated him and agreed that he needed hospitalization. He was placed on high-dose thiamine due to his history of drinking. He was recommended to be started on Zyprexa 15 mg at bedtime and continued on lactulose. Orthopedics was consulted. Orthopedics recommended that he be further evaluated by an oncologic orthopedic surgeon for further work-up. As there were no beds available at the [facility] or at [facility] patient was admitted to [facility] under the hospitalist service. His urinary tract infection was treated with Rocephin from 12/22 through 12/25/2021 and cefpodoxime from 12/25/2021 through 12/28/2021. Urine culture grew pansensitive E. coli. He was found to have an iron deficiency anemia this was treated with oral iron supplementation along with folic acid thiamine and multivitamin. Hyperammonemia was treated with lactulose. Is displaced right humeral fracture was treated with a sling and swath he was given oxycodone 5 mg every 8 hours as needed pain as well as Tylenol. Olanzapine was titrated up to 20 mg nightly and 5 mg daily. Patient's behavior settled down he became more cooperative although he continued to exhibit paranoid ideation and delusions of grandeur. Dr. Olguin, psychiatrist at the [facility] in [facility] was consulted. She made the recommendations for titration of his olanzapine. Un fortunately she felt they did not have the staffing to accept the patient at the [facility] and was concerned that they would not be able to transfer him over to the medical service once he was stabilized from a psychiatric standpoint and felt that he would not be able to receive the needed orthopedic oncologic follow-up. [facility] at [facility] for transfer for stabilization of his acute psychosis. From medical standpoint he was stable although he needs further follow-up evaluation of his pathologic fracture. Work-up in our institution included a noncontrast CT scan of his head that showed no acute abnormality. C-spine CT scan showed degenerative changes as well as a lytic lesion at T1. Contrast CT scan of the chest abdomen and pelvis was also performed showed a fracture of the proximal right humerus with question of underlying pathologic lesion with a large amount of abnormal enhancement soft tissue surrounding the fracture suspicious for mass. Indeterminate lytic lesions were seen in the spine including T1 and a compression fracture of T3 and mild to moderate compression fracture of T7. He was found to have a cirrhotic liver as well as cholelithiasis but no evidence for acute cholecystitis. Shoulder x-ray demonstrated displaced proximal humeral fracture. Abdominal ultrasound showed gallbladder wall thickening small amount of pericholecystic fluid and a single stone in the neck of the gallbladder. Upper extremity MRI scan of the right arm showed a pathologic fracture through the proximal humerus with marked displacement and comminution and large amount of surrounding fluid and infiltrative mass. He was also found to have a full- thickness tear of the subscapularis and biceps tendon. Patient is stable both from a psychiatric and medical standpoint although he needs further follow-up of his pathologic fracture and definitive diagnostic work-up including tissue sampling of the lytic lesions. He needs orthopedic surgical stabilization of his fracture. From a psychiatric standpoint he seems to be tolerating the increased dose of olanzapine and his behavior was markedly improved and that he was cooperative and compliant with his medications and not exhibiting any overtly aggressive behavior. He continued to express delusions of grandeur as well as paranoia. Home Meds and New Rx's Prescriptions: New multivitamin [Multiple Vitamins] Tablet 1 tab PO DAILY Qty: 0 0RF olanzapine 10 mg Tablet 20 mg PO HS Qty: 0 0RF Nicotrol 10 mg Cartridge 1 cartridge inhalation Q2H PRN PRNQty: 0 0RF olanzapine [Zyprexa] 2.5 mg Tablet 5 mg PO DAILY Qty: 0 0RF calcium carbonate 600 mg calcium (1,500 mg) Tablet 600 g PO BID Qty: 0 0RF magnesium hydroxide [Milk of Magnesia] 400 mg/5 mL Suspension 30 ml PO DAILY PRN PRNQty: 0 0RF pantoprazole 40 mg Tablet,Delayed Release (Dr/Ec) 40 mg PO DAILY@0730 Qty: 0 0RF ferrous sulfate 325 mg (65 mg iron) Tablet 325 mg PO BID Qty: 0 0RF folic acid 1 mg Tablet 1 mg PO DAILY Qty: 0 0RF ergocalciferol (vitamin D2) [Vitamin D2] 1,250 mcg (50,000 unit) Capsule 50,000 units PO Q7D Qty: 0 0RF alum-mag hydroxide-simeth [Mag-Al Plus] 200-200-20 mg/5 mL Suspension 30 ml PO Q2H PRN PRNQty: 0 0RF lorazepam 1 mg Tablet 1 mg PO Q4H PRN PRNQty: 0 0RF celecoxib [Celebrex] 100 mg Capsule 100 mg PO BID Qty: 0 0RF oxycodone 5 mg Tablet 5 mg PO Q8H PRN PRNQty: 0 0RF thiamine mononitrate (vit B1) [Vitamin B-1 (mononitrate)] 100 mg Tablet 100 mg PO DAILY Qty: 0 0RF lactulose 20 gram/30 mL Solution 15 g PO BID Qty: 0 0RF Continued clopidogrel [Plavix] 75 mg Tablet 75 mg PO DAILY furosemide 20 mg Tablet 20 mg PO QAM albuterol 90 mcg/actuation Aerosol 90 mcg INHALATION TID PRN propranolol 20 mg Tablet 20 mg PO DAILY Discontinued trazodone 50 mg Tablet 50 mg PO DAILY aspirin 325 mg Tablet 325 mg PO DAILY haloperidol decanoate [Haldol Decanoate] 100 mg/mL Solution 200 mg IM Q3W simvastatin 10 mg Tablet 10 mg PO DAILY benztropine 1 mg Tablet 1 mg PO BID Discharge Instructions Instructions: Shoulder Fracture in Children (DC) Additional Instructions: You have a fracture in your right shoulder which appears to be pathologic on xray. This means that the fracture is likely due to metastasis from a cancer. you need further followup studies to look for source of the metastasis. You need follow up with a cancer specialist to diagnose the source of the metastatic fractures. You also need follow up with orthopedic surgery to repair/stabilize the fracture. Dr. Ruggiero at the [facility] was contacted by Dr. Bianka gonzalez from [facility] and Dr. Ruggiero indicated that you could be followed as an outpatient for this fracture. It is recommended that while you are at [facility], that your psychiatrist consult w/ an orthopedist to evaluate your fracture. Your psychiatrist should also consult w/ either an licensed chemical spray technician or oncologist to perform appropriate studies to evaluate for a primary cancer source of your pathologic fracture. Stand Alone Forms: Nursing Discharge Form Activity:: Activity as Tolerated Equipment/Supplies:: sling and swath Diet:: Normal Diet Discharge Orders Discharge Orders: Discharge Order (Routine); Ordered 12/30/21 Ordered By: Terrance Stern DS: Summary Time Spent with Patient providing and/or coordinating discharge services: Less than 30 minutes Specific discharge activities: reviewing chart, summarizing his care/workup Status at Discharge Functional status at discharge: independent ambulation Overall status at discharge: patient is not back to baseline Mental Status: other (paranoid delusions; delusions of grandeur) Speech and Movement: restless and slurred speech Mood: paranoid and other (paranoid delusions; delusions of grandeur) Affect: labile affect Exam Narrative Exam Narrative: History of pertinent is awake and alert. Oriented to person only. He is very tearful and is still expressing thoughts of suicide saying he normally wants to live this way. He is upset at the thought of going to [place] and being taken further from home. He is upset about having to wear paper clothes and having to be under constant monitoring. His speech is somewhat slurred this morning and he rambles on about drug addicts in the streets and how he was one of them but gave it up years ago. He does not seem to remember me visiting him two days ago. I explained to him that he is going to [place] temporarily while they treat his mental disorder and that they will arrange folllow up of his arm fracture. Mr. Meeks then asked that I just leave him alone. He seems to be moving his right arm well although he can not raise his arm up due the displaced fracture. There remains bruising over the right poximal humerus along w/ swelling over the same. Const Limitations: behavioral limitations Psych Mental Status: other (paranoid delusions; delusions of grandeur) Speech and Movement: restless and slurred speech Mood: paranoid and other (paranoid delusions; delusions of grandeur) Affect: labile affect DS: Data Vitals/I&O Vitals and I&O: Vital Signs Temperature 36.5 C 12/29/21 14:59 Temperature Source Tympanic 12/29/21 14:59 Pulse 73 12/29/21 14:59 Pulse Rhythm Regular 12/29/21 18:33 Respiratory Rate 16 12/29/21 14:59 Respiratory Effort 12/29/21 18:33 Respiratory Depth Normal 12/29/21 18:33 Respiratory Pattern Normal 12/29/21 18:33 Blood Pressure 110/67 12/29/21 14:59 Blood Pressure Mean 57 12/22/21 13:38 Pulse Oximetry 96 12/29/21 14:59 Oxygen Delivery Method Room Air 12/29/21 14:59 Oxygen Flow Rate 0 12/29/21 14:59 Pain Level 9 12/29/21 20:29 Comment 12/29/21 09:25 Intake & Output 12/28/21 12/29/21 12/29/21 23:59 11:59 23:59 Intake Total 960 / 1440 1180 / 2620 1440 / 2620 Balance 960 / 1440 1180 / 2620 1440 / 2620 Weight 70.67 kg Intake: Oral 960 / 1440 1180 / 2620 1440 / 2620 Other: Comment voided in toilet and flushed, unable to assess Stool Occult Blood Negative Negative Stool Size Copious Moderate Stool Characteristics Liquid Liquid Voiding Methods Toilet Toilet Toilet Data Completed and Pending Labs on day of discharge: Labs from last 24 hours 12/29/21 12/29/21 12/29/21 05:35 05:35 05:00 WBC Pending RBC Pending Hgb Pending Hct Pending MCV Pending MCH Pending MCHC Pending RDW Pending Plt Count Pending MPV Pending Immature Gran % Pending Neutrophils % Pending Lymphocytes % Pending Monocytes % Pending Eosinophils % Pending Basophils % Pending Absolute Neutrophils Pending Absolute Lymphocytes Pending Absolute Monocytes Pending Absolute Eosinophils Pending Absolute Basophils Pending Sodium Pending Potassium Pending Chloride Pending Carbon Dioxide Pending Anion Gap Pending BUN Pending Creatinine Pending Estimated GFR/1.73 m2 Pending Glucose Pending Calcium Pending Total Bilirubin Pending AST Pending ALT Pending Alkaline Phosphatase Pending Total Protein Pending Albumin Pending Urine Color Yellow Urine Clarity Clear Urine pH 6.5 Ur Specific Reeders 1.025 Urine Protein Negative Urine Ketones Negative Urine Blood Negative Urine Nitrite Negative Urine Bilirubin Negative Urine Urobilinogen 0.2 Ur Leukocyte Esterase Negative Urine Glucose Negative PFSH All Active Problems (Updated 12/29/21 @ 21:49 by Terrance Stern) Pathologic fracture of thoracic vertebrae (Acute) Hypotension (Acute) Dehydration (Acute) Discharge planning issues (Acute) DVT prophylaxis (Acute) Hyperammonemia (Acute) Degenerative disc disease, cervical (Acute) Lytic lesion of bone on x-ray (Acute) Pathological fracture of humerus (Acute) Suicidal ideation (Acute) Paranoid delusion (Acute) Anemia, iron deficiency (Acute) Closed right humeral fracture (Acute) Psychosis (Acute) Cholelithiasis (Chronic) Medical History (Updated 12/29/21 @ 21:49 by Terrance Stern) Anemia Cirrhosis Hypothyroidism Pancytopenia Portal hypertension Schizophrenia Surgical History (Updated 12/22/21 @ 19:59 by Yue Moran MD) Surgical history unknown Family History (Updated 12/22/21 @ 19:59 by Yue Moran MD) Other Family history unobtainable due to patient's condition Social History Smoking/Tobacco Use Status: Former Tobacco Use Smoking risk assessment performed?: Yes Alcohol Intake: former Drug use: Never Substance use type: former substance user Do you feel safe at home: Yes Do you feel safe in your relationship?: Yes
[2021-12-29] MEDS: OLANZapine 10 MG TAB 20 MG PO (22:39)
[2021-12-29] MEDS: oxyCODONE 5 MG TAB PO (22:39)
[2021-12-30] MEDS: Clopidogrel 75 MG TAB PO (07:59)
[2021-12-30] MEDS: Celecoxib 100 MG CAP PO (07:59)
[2021-12-30] MEDS: Pantoprazole 40 MG TABCR PO (07:59)
[2021-12-30] MEDS: Calcium Carbonate 1.5 GM TAB PO (07:59)
[2021-12-30] MEDS: Folic Acid 1 MG TAB PO (07:59)
[2021-12-30] MEDS: Furosemide 20 MG TAB PO (08:00)
[2021-12-30] MEDS: Thiamine 100 MG TAB PO (08:00)
[2021-12-30] MEDS: Ferrous Sulfate 325 MG TAB PO (08:00)
[2021-12-30] MEDS: Propranolol 20 MG TAB PO (08:00)
[2021-12-30] MEDS: Multivitamin TAB 1 TAB PO (08:01)
[2021-12-30] MEDS: OLANZapine 2.5 MG TAB 5 MG PO (08:01)
[2021-12-30] MEDS: Lactulose 20 GM/30 ML CUP 15 GM PO (08:01)
--- NOTE | 2021-12-30 10:31 | CMDISCH_ITS ---
- If Service Date Differs Date of service: 12/30/21 Time of Service: 10:55 LACE Index Scoring Tool - Questions: Length of Stay (in days): 7 - 13 Acuity (Admit via E.D.?): Yes E.D. Visits: 2 - Answers: Total Score: 10 Risk of Readmission: High Risk Care Management Discharge Reason for Hospitalization: Hepatic encephalopathy, UTI, pathological R humeral fracture. Discharge Plan: Ram[facility] will transfer to [facility], via [facility] coordinated transport. 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
== END 2021-12-30 09:30 | disposition short-term general hospital (02) | DRG 885 ==
LOC: ER 12-22 16:03 → MS 12-22 16:50
PROVIDERS: Emergency Medicine; Family Medicine; Internal Medicine; Student in an Organized Health Care Education/Training Program; Admitting Provider Internal Medicine; Emergency Provider Emergency Medicine; Visit Provider Internal Medicine
DX: F20.0 Paranoid schizophrenia (principal); C90.00 Multiple myeloma not having achieved remission; M84.421A Pathological fracture, right humerus, initial encounter for fracture; D61.818 Other pancytopenia; N39.0 Urinary tract infection, site not specified; K76.6 Portal hypertension; C79.51 Secondary malignant neoplasm of bone; E72.20 Disorder of urea cycle metabolism, unspecified; M48.54XA Collapsed vertebra, not elsewhere classified, thoracic region, initial encounter for fracture; K70.30 Alcoholic cirrhosis of liver without ascites; E03.9 Hypothyroidism, unspecified; R00.0 Tachycardia, unspecified; R45.1 Restlessness and agitation; F41.9 Anxiety disorder, unspecified; Z91.14 Patient's other noncompliance with medication regimen; D50.9 Iron deficiency anemia, unspecified; M50.30 Other cervical disc degeneration, unspecified cervical region; Z87.891 Personal history of nicotine dependence; B96.20 Unspecified Escherichia coli [E. coli] as the cause of diseases classified elsewhere; I95.9 Hypotension, unspecified; K80.20 Calculus of gallbladder without cholecystitis without obstruction; E86.0 Dehydration; S43.421A Sprain of right rotator cuff capsule, initial encounter; S46.811A Strain of other muscles, fascia and tendons at shoulder and upper arm level, right arm, initial encounter; X58.XXXA Exposure to other specified factors, initial encounter
CPT/HCPCS: 36415; 74177; 76376; 80048; 80053; 80076; 80307; 82306; 82550; 83690; 84156; 84166; 85652; 86335; 87077; 87635; 96361; 96365; 97167; 99283; 99285; Q3014; 70450; 71260; 72125; 73030; 73221; 76705; 80320; 80329; 81003; 81015; 82140; 83735; 83883; 84154; 84165; 84439; 84443; 85025; 85379; 85610; 86140; 87086; 87186; 99223; 99231; 99232; 99233; 99238; J0696

== ENCOUNTER 2022-03-01 10:44 | Emergency (ER) | payer OTHER, SELFPAY ==
--- NOTE | 2022-03-01 10:56 | ED.GENADUL_ITS ---
Discharge Plan Disposition Patient Disposition: HOME Condition: Stable Discharge Details Clinical Impression: Chronic right shoulder pain, Pathologic fracture of humerus Primary Care Provider: None,None ED Provider: Elena Barraza Home Meds and New Rx's Prescriptions: Continued furosemide 20 mg Tablet 20 mg PO QAM albuterol 90 mcg/actuation Aerosol 90 mcg INHALATION TID PRN multivitamin [Multiple Vitamins] Tablet 1 tab PO DAILY Qty: 0 0RF folic acid 1 mg Tablet 1 mg PO DAILY Qty: 0 0RF alum-mag hydroxide-simeth [Mag-Al Plus] 200-200-20 mg/5 mL Suspension 30 ml PO Q2H PRN PRNQty: 0 0RF thiamine mononitrate (vit B1) [Vitamin B-1 (mononitrate)] 100 mg Tablet 100 mg PO DAILY Qty: 0 0RF lactulose 20 gram/30 mL Solution 15 g PO BID Qty: 0 0RF aspirin 325 mg Tablet 325 mg PO DAILY metoprolol succinate 50 mg Tablet Extended Release 24 Hr 75 mg PO DAILY spironolactone 25 mg Tablet 25 mg PO DAILY haloperidol 10 mg Tablet 10 mg PO .QHS benztropine 1 mg Tablet 1 mg PO .QHS Discharge Instructions Instructions: Shoulder Pain (ED) Additional Instructions: Your x-ray today again reveals your chronic fracture in your right shoulder and does not appear different compared to your previous x-ray in December 2021. Care management has arranged for the [facility] to contact you for a follow-up appointment for reevaluation and the appropriate referrals as indicated. You will likely need tissue sampling of your right shoulder and possible surgical intervention. Alternate tylenol and motrin as needed and directed for pain. Take the tramadol for pain not relieved with Tylenol or Motrin. Return immediately to the emergency department if you develop any worsening or new concerning symptoms. Discharge Data Discharge Physician: Elena Barraza Medical Decision Making 66-year-old male with a history of psychosis, schizophrenia, paranoid delusions with known pathologic fracture of the humerus determined on the admission here in December 2021 referred for orthopedic consultation at tertiary care center as he may need tissue sampling presents with worsening right shoulder pain. He denies any new injury or fever. X-ray of the right shoulder ordered in triage before my evaluation. Per review with radiologist, there is no significant change from his previous imaging and notes the displaced proximal humerus fracture with dystrophic calcification with no true effect of healing. Patient has an obvious deformity to his right shoulder and upper arm but no evidence of cellulitis or acute trauma. He has pain with range of motion and limitation of range of motion but is neurovascularly intact. Case discussed with care management [facility]ikh. Patient has not followed up with them in the past year. Referrals have been placed for patient to follow-up for the appropriate services including possible tissue sampling and referral to orthopedics for potential surgical intervention. Patient was given a dose of tramadol here and a 2 tab bottle of tramadol to go. A sling was given to help with pain as needed. Usual and customary return precautions given prior to discharge. Medical Records Medical records reviewed: Yes I reviewed the patient's medical records. Imaging Data Radiologic Study: Radiologist's impression: ?XR SHOULDER RT COMPLETE 2+V CLINICAL HISTORY: ? increased shoulder pain right. ? TECHNIQUE:? 2D digital imaging was performed. COMPARISON:? CR,XR XR SHOULDER RT COMPLETE 2+V from 12/21/2021 CR XR SHOULDER RT COMPLETE 2+V from 12/28/2021 FINDINGS: Dystrophic calcification around the previously described this placed proximal humerus fracture.? No true affective healing.? No fracture of the osseous glenoid evident. HPI General Mode of arrival: ambulatory . Date/Time Provider Initiated Documentation: 03/01/22 10:55 . Limitations to Documentation: no limitations . Information obtained by: patient . HPI Narrative: Patient is a 66-year-old male with a history of suspected pathologic fracture of his right proximal humerus noted on admission here in December 2021 with plan for referral and follow-up with the [facility] for further evaluation and possible tissue sampling and/or surgical intervention presents with persistent right shoulder pain. Patient denies any new injury. He states the pain is worse with movement. Denies any fever. Related Data Home Medications Medication Instructions Recorded Confirmed albuterol 90 mcg/actuation aerosol 90 mcg inhalation TID PRN 01/03/21 03/01/22 inhaler furosemide 20 mg tablet 20 mg PO QAM 01/03/21 03/01/22 aluminum-mag hydroxide-simethicone 30 ml PO Q2H PRN PRN #0 mL 12/29/21 03/01/22 200 mg-200 mg-20 mg/5 mL oral susp (Mag-Al Plus) folic acid 1 mg tablet 1 mg PO DAILY #0 tabs 12/29/21 03/01/22 lactulose 20 gram/30 mL oral 15 g (22.5 mL) PO BID #0 mL 12/29/21 03/01/22 solution multivitamin (Multiple Vitamins 1 tab PO DAILY #0 tabs 12/29/21 03/01/22 tablet) thiamine mononitrate (vit B1) 100 100 mg PO DAILY #0 tabs 12/29/21 03/01/22 mg tablet (Vitamin B-1 (mononitrate)) aspirin 325 mg tablet 325 mg PO DAILY 03/01/22 03/01/22 benztropine 1 mg tablet 1 mg PO .QHS 03/01/22 03/01/22 haloperidol 10 mg tablet 10 mg PO .QHS 03/01/22 03/01/22 metoprolol succinate 50 mg 75 mg PO DAILY 03/01/22 03/01/22 tablet,extended release 24 hr spironolactone 25 mg tablet 25 mg PO DAILY 03/01/22 03/01/22 Previous Rx's Medication Instructions Recorded aluminum-mag hydroxide-simethicone 30 ml PO Q2H PRN PRN #0 mL 12/29/21 200 mg-200 mg-20 mg/5 mL oral susp (Mag-Al Plus) folic acid 1 mg tablet 1 mg PO DAILY #0 tabs 12/29/21 lactulose 20 gram/30 mL oral 15 g (22.5 mL) PO BID #0 mL 12/29/21 solution multivitamin (Multiple Vitamins 1 tab PO DAILY #0 tabs 12/29/21 tablet) thiamine mononitrate (vit B1) 100 100 mg PO DAILY #0 tabs 12/29/21 mg tablet (Vitamin B-1 (mononitrate)) Allergies Allergy/AdvReac Type Severity Reaction Status Date / Time No Known Allergies Allergy Unverified 03/01/22 11:03 General Stated Complaint: Orthopedic CARMITA: 2 Review of Systems All systems reviewed & are unremarkable except as noted in HPI and below Constitutional Constitutional: Reports as per HPI, Denies chills and Denies fever(s) Eyes Eyes: Denies blurry vision ENT Ears, Nose, Mouth, and Throat: Denies dizziness, Denies sore throat and Denies throat swelling Cardiovascular Cardiovascular: Denies chest pain and Denies dyspnea Respiratory Respiratory: Denies cough and Denies dyspnea Gastrointestinal Gastrointestinal: Denies abdominal pain, Denies diarrhea and Denies vomiting Genitourinary Genitourinary: Denies hematuria and Denies dysuria Musculoskeletal Musculoskeletal: Denies back pain and Denies numbness Comments: R shoulder pain Integumentary/Breasts Skin/Breast: Denies lesions and Denies rash Neurologic Neurologic: Denies dizziness, Denies localized weakness and Denies numbness Allergic/Immunologic Allergic/Immunologic: Denies throat swelling PFSH All Active Problems (Updated 03/01/22 @ 13:00 by Elena Barraza DO) Chronic right shoulder pain (Acute) Pathologic fracture of humerus (Acute) Pathologic fracture of thoracic vertebrae (Acute) Degenerative disc disease, cervical (Acute) Lytic lesion of bone on x-ray (Acute) Pathological fracture of humerus (Acute) Suicidal ideation (Acute) Paranoid delusion (Acute) Anemia, iron deficiency (Acute) Closed right humeral fracture (Acute) Psychosis (Acute) Cholelithiasis (Chronic) Medical History (Updated 03/01/22 @ 13:00 by Elena Barraza DO) Anemia Cirrhosis Hypothyroidism Pancytopenia Portal hypertension Schizophrenia Surgical History (Updated 12/22/21 @ 19:59 by Yue Moran MD) Surgical history unknown Family History (Updated 12/22/21 @ 19:59 by Yue Moran MD) Other Family history unobtainable due to patient's condition Social History Smoking/Tobacco Use Status: Former Tobacco Use Smoking risk assessment performed?: Yes Alcohol Intake: former Drug use: Never Substance use type: former substance user Do you feel safe at home: Yes Do you feel safe in your relationship?: Yes Exam Const General: cooperative, healthy appearing and no acute distress Orientation: alert, awake and oriented x3 HENMT Head: normal to inspection Mouth: oral mucosae normal Eyes General: appearance normal, both eyes and all related structures Neck Neck: normal visual inspection Resp Effort & Inspection: normal respiratory effort and able to speak in complete sentences Cardio Rate: regular rate Skin General skin exam: no rashes or lesions noted Neuro General: patient alert, patient awake and patient oriented x3 Motor: muscle tone normal throughout Extrem Other: Deformity to right shoulder and right upper arm. Limitation of range of motion due to pain. There is no overlying erythema, edema, ecchymosis, rash, lesions or crepitus. Right radial and ulnar pulses intact. Psych Appearance: grossly normal Affect: normal affect
[2022-03-01 11:00] VITALS: BP 99/75; PULSE 75; RESP 18; TEMP 36.9; O2SAT 96
--- NOTE | 2022-03-01 11:00 | DI.RAD_ITS ---
Exam(s) XR SHOULDER RT COMPLETE 2+V EXAM: XR SHOULDER RT COMPLETE 2+V CLINICAL HISTORY: increased shoulder pain right. TECHNIQUE: 2D digital imaging was performed. COMPARISON: CR,XR XR SHOULDER RT COMPLETE 2+V from 12/21/2021 CR XR SHOULDER RT COMPLETE 2+V from 12/28/2021 FINDINGS: Dystrophic calcification around the previously described this placed proximal humerus fracture. No t rue affective healing. No fracture of the osseous glenoid evident. IMPRESSION: DATA REPOSITORY: RADIATION DOSE DELIVERED:
--- NOTE | 2022-03-01 13:01 | CMACTNOTE_ITS ---
- If Service Date Differs Date of service: 03/01/22 Time of Service: 13:01 Care Management Activity Note Ramone presents in the ED for right shoulder pain. At the request of ED provider, NATASHA telephones Barbie, hearing care practitioner at the [place], to enlist her assistance in ensuring that Ramone obtains a follow up appointment at the [facility] and that appropriate referrals to specialists are made. At Barbie's request, NATASHA faxes ED Visit Notes and Diagnostic Reports to the attention of Dr. Edie Leonard or at the [facility]. The [place] will contact Ramone directly to schedule follow up appointment and will arrange transportation to the appointment for him. NATASHA also contacts [facility] [employer] and speaks with Julio César Irene. POULTRY TRIMMER has daily contact with Ramone and they will ensure that he gets a follow up appointment at the [place] and will support Ramone in attending that appointment.
--- NOTE | 2022-03-01 13:01 | PDOC.ERCMACT ---
- If Service Date Differs Date of service: 03/01/22 Time of Service: 13:01 Care Management Activity Note Ramone presents in the ED for right shoulder pain. At the request of ED provider, NATASHA telephones Barbie, ocular care aide at the [place], to enlist her assistance in ensuring that Ramone obtains a follow up appointment at the [facility] and that appropriate referrals to specialists are made. At Barbie's request, NATASHA faxes ED Visit Notes and Diagnostic Reports to the attention of Dr. Edie Parikh at the [facility]. [facility] to schedule follow up appointment and will arrange transportation to the appointment for him. NATASHA also contacts [facility] SOCIAL WORK PROGRAM COORDINATOR and speaks with Julio César Irene. SOCIAL WORK PROGRAM COORDINATOR has daily contact with Ramone and they will ensure that he gets a follow up appointment at the [place] and will support Ramone in attending that appointment.
[2022-03-01] MEDS: traMADol 50 MG TAB PO (13:02)
[2022-03-01 13:23] VITALS: BP 99/75; PULSE 75; RESP 18; TEMP 36.9; O2SAT 96
== END 2022-03-01 13:15 | disposition home or self-care (01) ==
PROVIDERS: Emergency Provider Physician Assistant
DX: M25.511 Pain in right shoulder (principal); M84.421A Pathological fracture, right humerus, initial encounter for fracture
CPT/HCPCS: 99283; 73030

== ENCOUNTER 2022-04-05 10:14 | Emergency (ER) | payer OTHER, SELFPAY ==
[2022-04-05 10:22] VITALS: BP 130/116; PULSE 89; RESP 22; TEMP 36.5; O2SAT 99
--- NOTE | 2022-04-05 10:29 | W.ED.GENAD ---
Discharge Plan Disposition Patient Disposition: HOME Discharge Details Clinical Impression: Closed right humeral fracture Primary Care Provider: None,None ED Provider: Kenan Hong Home Meds and New Rx's Prescriptions: No Action cyclobenzaprine 10 mg tablet 10 mg PO HS PRN (Reason: muscle spasm) Qty: 15 0RF furosemide 20 mg Tablet 20 mg PO QAM albuterol 90 mcg/actuation Aerosol 90 mcg INHALATION TID PRN multivitamin [Multiple Vitamins] Tablet 1 tab PO DAILY Qty: 0 0RF folic acid 1 mg Tablet 1 mg PO DAILY Qty: 0 0RF alum-mag hydroxide-simeth [Mag-Al Plus] 200-200-20 mg/5 mL Suspension 30 ml PO Q2H PRN PRNQty: 0 0RF thiamine mononitrate (vit B1) [Vitamin B-1 (mononitrate)] 100 mg Tablet 100 mg PO DAILY Qty: 0 0RF lactulose 20 gram/30 mL Solution 15 g PO BID Qty: 0 0RF aspirin 325 mg Tablet 325 mg PO DAILY metoprolol succinate 50 mg Tablet Extended Release 24 Hr 75 mg PO DAILY spironolactone 25 mg Tablet 25 mg PO DAILY haloperidol 10 mg Tablet 10 mg PO .QHS benztropine 1 mg Tablet 1 mg PO .QHS Discharge Instructions Additional Instructions: Please continue taking all your regular medications. Please follow-up with your case Medical Decision Making Patient with chronic right shoulder pain and pathological fracture of the right. At this time he is not willing to stay in the emergency department for further evaluation. He has capacity to make decisions for himself. He will be discharged with follow-up with his paid search manager, [place] orthopedics [facility] General Date/Time Provider Initiated Documentation: 04/05/22 10:17. HPI Narrative: Patient presents to the emergency department, requesting to know when his surgery is scheduled for his right shoulder. He was diagnosed with a possible buckle fracture of the right shoulder back in December 2021. He presented to the emergency department in February 2022 with chronic right shoulder pain. X-rays obtained in February revealed a pathological fracture with no changes from the x-rays in December. The patient is complaining of persistent right shoulder pain. He states he went to a clinic somewhere and has not heard back from them. Back in February case management referred him to the [facility] clinic, he was supposed to see Dr. Edie Parikh as an outpatient. He is unwilling or wanting to tell us if he saw Dr. Parikh. He has had no recurrent trauma of the right shoulder. The pain is described as mild to moderate. Worse with movement. Better with rest. No paresthesias of the right arm. The patient got very upset upon arriving to the emergency room told that we do not do's shoulder surgery in the emergency department. At that time he requested to go home I was able to calm him down a tiny bit and asked him to give us some time to verify what is happening with his orthopedic referral. The case was discussed with this week with his paid search manager. She confirmed that they are working with [place] into the [facility]ics office. When talking to the x-ray she tells me that this morning he mentioned to her that he felt dizzy and for that reason he was referred to the emergency department. At this time he states that he is not dizzy and that he does not want to be seen in the emergency department. He wants to leave. He is unwilling to complete a review of systems Related Data Home Medications Medication Instructions Recorded Confirmed albuterol 90 mcg/actuation aerosol 90 mcg inhalation TID PRN 01/03/21 03/03/22 inhaler furosemide 20 mg tablet 20 mg PO QAM 01/03/21 03/03/22 aluminum-mag hydroxide-simethicone 30 ml PO Q2H PRN PRN #0 mL 12/29/21 03/03/22 200 mg-200 mg-20 mg/5 mL oral susp (Mag-Al Plus) folic acid 1 mg tablet 1 mg PO DAILY #0 tabs 12/29/21 03/03/22 lactulose 20 gram/30 mL oral 15 g (22.5 mL) PO BID #0 mL 12/29/21 03/03/22 solution multivitamin (Multiple Vitamins 1 tab PO DAILY #0 tabs 12/29/21 03/03/22 tablet) thiamine mononitrate (vit B1) 100 100 mg PO DAILY #0 tabs 12/29/21 03/03/22 mg tablet (Vitamin B-1 (mononitrate)) aspirin 325 mg tablet 325 mg PO DAILY 03/01/22 03/03/22 benztropine 1 mg tablet 1 mg PO .QHS 03/01/22 03/03/22 haloperidol 10 mg tablet 10 mg PO .QHS 03/01/22 03/03/22 metoprolol succinate 50 mg 75 mg PO DAILY 03/01/22 03/03/22 tablet,extended release 24 hr spironolactone 25 mg tablet 25 mg PO DAILY 03/01/22 03/03/22 cyclobenzaprine 10 mg tablet 10 mg PO HS PRN muscle spasm #15 03/03/22 03/03/22 tabs Previous Rx's Medication Instructions Recorded aluminum-mag hydroxide-simethicone 30 ml PO Q2H PRN PRN #0 mL 12/29/21 200 mg-200 mg-20 mg/5 mL oral susp (Mag-Al Plus) folic acid 1 mg tablet 1 mg PO DAILY #0 tabs 12/29/21 lactulose 20 gram/30 mL oral 15 g (22.5 mL) PO BID #0 mL 12/29/21 solution multivitamin (Multiple Vitamins 1 tab PO DAILY #0 tabs 12/29/21 tablet) thiamine mononitrate (vit B1) 100 100 mg PO DAILY #0 tabs 12/29/21 mg tablet (Vitamin B-1 (mononitrate)) cyclobenzaprine 10 mg tablet 10 mg PO HS PRN muscle spasm #15 03/03/22 tabs Allergies Allergy/AdvReac Type Severity Reaction Status Date / Time No Known Allergies Allergy Unverified 04/05/22 10:29 General Stated Complaint: Orthopedic CARMITA: 4 Review of Systems Narrative: Review of systems patient not willing to participate in a complete review of system. He tells me that he has chronic right shoulder pain. He also has resolved dizziness from this morning. PFSH All Active Problems (Updated 04/05/22 @ 11:02 by Kenna Hong MD) Pathologic fracture of thoracic vertebrae (Acute) Degenerative disc disease, cervical (Acute) Lytic lesion of bone on x-ray (Acute) Pathological fracture of humerus (Acute) Suicidal ideation (Acute) Paranoid delusion (Acute) Anemia, iron deficiency (Acute) Closed right humeral fracture (Acute) Psychosis (Acute) Cholelithiasis (Chronic) Medical History Anemia Cirrhosis Hypothyroidism Pancytopenia Portal hypertension Schizophrenia Surgical History Surgical history unknown Family History Other Family history unobtainable due to patient's condition Social History Smoking/Tobacco Use Status: Former Tobacco Use Smoking risk assessment performed?: Yes Alcohol Intake: former Drug use: Never Substance use type: former substance user Do you feel safe at home: Yes Do you feel safe in your relationship?: Yes Exam Narrative Exam Narrative: Awake alert oriented x3, all intermittently agitated, pacing in the room. Poorly cooperative in no acute distress Normocephalic atraumatic head. PERRLA EOMI MMM anicteric Cardiovascular normal peripheral pulses on the left arm and right arm. Brisk cap refill. Normal work of breathing. Right shoulder. Obvious deformity. He has limited range of motion of the right shoulder. Right elbow normal right hand normal right wrist normal. Neuro grossly intact Psych mildly altered affect and mood that waxes. Course Vital Signs Vital signs: Vital Signs Temperature 36.5 C 04/05/22 10:22 Pulse 89 04/05/22 10:22 Respiratory Rate 04/05/22 10:22 Blood Pressure 130/116 H 04/05/22 10:22 Pulse Oximetry 99 04/05/22 10:22 Temperature 36.5 C 04/05/22 10:22 Temperature Source Temporal Artery Scan 04/05/22 10:22 Pulse 89 04/05/22 10:22 Respiratory Rate 22 04/05/22 10:22 Blood Pressure 130/116 H 04/05/22 10:22 Blood Pressure Position Sitting 04/05/22 10:22 Pulse Oximetry 99 04/05/22 10:22 Oxygen Delivery Method Room Air 04/05/22 10:22 Oxygen Flow Rate 0 04/05/22 10:22
== END 2022-04-05 11:05 | disposition home or self-care (01) ==
PROVIDERS: Emergency Provider Emergency Medicine
DX: M84.421A Pathological fracture, right humerus, initial encounter for fracture (principal); R45.1 Restlessness and agitation; Z87.891 Personal history of nicotine dependence
CPT/HCPCS: 99281; 99284

== ENCOUNTER 2022-04-06 20:00 | Emergency (ER) | payer OTHER, SELFPAY ==
[2022-04-06 20:15] VITALS: PULSE 78; RESP 20; TEMP 36.5; O2SAT 98
--- NOTE | 2022-04-06 20:34 | W.ED.GENAD ---
Discharge Plan Disposition Patient Disposition: HOME Condition: Good Discharge Details Clinical Impression: Chronic shoulder pain Primary Care Provider: None,None ED Provider: Idris Dowd Home Meds and New Rx's Prescriptions: No Action cyclobenzaprine 10 mg tablet 10 mg PO HS PRN (Reason: muscle spasm) Qty: 15 0RF furosemide 20 mg Tablet 20 mg PO QAM albuterol 90 mcg/actuation Aerosol 90 mcg INHALATION TID PRN multivitamin [Multiple Vitamins] Tablet 1 tab PO DAILY Qty: 0 0RF folic acid 1 mg Tablet 1 mg PO DAILY Qty: 0 0RF alum-mag hydroxide-simeth [Mag-Al Plus] 200-200-20 mg/5 mL Suspension 30 ml PO Q2H PRN PRNQty: 0 0RF thiamine mononitrate (vit B1) [Vitamin B-1 (mononitrate)] 100 mg Tablet 100 mg PO DAILY Qty: 0 0RF lactulose 20 gram/30 mL Solution 15 g PO BID Qty: 0 0RF aspirin 325 mg Tablet 325 mg PO DAILY metoprolol succinate 50 mg Tablet Extended Release 24 Hr 75 mg PO DAILY spironolactone 25 mg Tablet 25 mg PO DAILY haloperidol 10 mg Tablet 10 mg PO .QHS benztropine 1 mg Tablet 1 mg PO .QHS Discharge Instructions Additional Instructions: Our pillowcase maker are [facility] working [facility] to help schedule you an appointment for [facility]. Please ice your shoulder if you continue to have pain. If you notice any worsening of your symptoms, or any new symptoms such as vomiting, diarrhea, fever, chills, shortness of breath, chest pain, numbness, weakness, or fainting , please return immediately to the emergency department for reevaluation. Please follow up with your primary care provider as soon as possible for reassessment and reevaluation. As always, it was a pleasure participating in your medical care today. Medical Decision Making 66-year-old male with a past medical history of a fracture of his right shoulder in the past, paranoid delusions, schizophrenia, presents today for reassessment. He states that someone brought him here today to help him organize his surgery. Patient was just here yesterday, at which point he was evaluated, case management is made clear that they are helping to facilitate potential outpatient [facility] management with the [facility] at this time. Currently the patient denies any other complaints. He states he still has some mild soreness in his shoulder on his right. He denies any other complaints at this. Pain is made worse with movement of the shoulder. Improved by nothing. Exam reveals a stable male. He did ask for sandwich which was given to him. He shows no signs of new trauma or evidence of acute fracture. He is able to move his upper extremities well. There seems to be some intellectual challenges in communicating with the patient regards to clarifying that surgery is not done here in the emergency department, it needs to be done outpatient with the surgeon. He somewhat seems to understand this. Upon review of the recent records from yesterday it appears that the patient does have scheduled surgery in progress that is being managed by the manager of case management and the [facility]. We will give the patient a Lidoderm patch for her shoulder, discussed red flags for which to return. I have extensively reviewed the treatment plan and discharge instructions with the patient. I have addressed all patient concerns at this time. The patient was made aware of what symptoms to monitor for that would warrant a return to the emergency department. Discussed the plan with the patient, they demonstrate verbal understanding and agreement with our assessment and plan at this time. The documentation in this chart was dictated using [employer] dictation software. Please excuse any dictation errors. HPI General Date/Time Provider Initiated Documentation: 04/06/22 20:17. HPI Narrative: 66-year-old male with a past medical history of a fracture of his right shoulder in the past, paranoid delusions, schizophrenia, presents today for reassessment. He states that someone brought him here today to help him organize his surgery. Patient was just here yesterday, at which point he was evaluated, case management is made clear that they are helping to facilitate potential outpatient [facility] with [facility] at [facility] time. Currently the patient denies any other complaints. He states he still has some mild soreness in his shoulder on his right. He denies any other complaints at this. Pain is made worse with movement of the shoulder. Improved by nothing. Related Data Home Medications Medication Instructions Recorded Confirmed albuterol 90 mcg/actuation aerosol 90 mcg inhalation TID PRN 01/03/21 04/06/22 inhaler furosemide 20 mg tablet 20 mg PO QAM 01/03/21 04/06/22 aluminum-mag hydroxide-simethicone 30 ml PO Q2H PRN PRN #0 mL 12/29/21 04/06/22 200 mg-200 mg-20 mg/5 mL oral susp (Mag-Al Plus) folic acid 1 mg tablet 1 mg PO DAILY #0 tabs 12/29/21 04/06/22 lactulose 20 gram/30 mL oral 15 g (22.5 mL) PO BID #0 mL 12/29/21 04/06/22 solution multivitamin (Multiple Vitamins 1 tab PO DAILY #0 tabs 12/29/21 04/06/22 tablet) thiamine mononitrate (vit B1) 100 100 mg PO DAILY #0 tabs 12/29/21 04/06/22 mg tablet (Vitamin B-1 (mononitrate)) aspirin 325 mg tablet 325 mg PO DAILY 03/01/22 04/06/22 benztropine 1 mg tablet 1 mg PO .QHS 03/01/22 04/06/22 haloperidol 10 mg tablet 10 mg PO .QHS 03/01/22 04/06/22 metoprolol succinate 50 mg 75 mg PO DAILY 03/01/22 04/06/22 tablet,extended release 24 hr spironolactone 25 mg tablet 25 mg PO DAILY 03/01/22 04/06/22 cyclobenzaprine 10 mg tablet 10 mg PO HS PRN muscle spasm #15 03/03/22 04/06/22 tabs Previous Rx's Medication Instructions Recorded aluminum-mag hydroxide-simethicone 30 ml PO Q2H PRN PRN #0 mL 12/29/21 200 mg-200 mg-20 mg/5 mL oral susp (Mag-Al Plus) folic acid 1 mg tablet 1 mg PO DAILY #0 tabs 12/29/21 lactulose 20 gram/30 mL oral 15 g (22.5 mL) PO BID #0 mL 12/29/21 solution multivitamin (Multiple Vitamins 1 tab PO DAILY #0 tabs 12/29/21 tablet) thiamine mononitrate (vit B1) 100 100 mg PO DAILY #0 tabs 12/29/21 mg tablet (Vitamin B-1 (mononitrate)) cyclobenzaprine 10 mg tablet 10 mg PO HS PRN muscle spasm #15 03/03/22 tabs Allergies Allergy/AdvReac Type Severity Reaction Status Date / Time No Known Allergies Allergy Unverified 04/06/22 20:22 General Stated Complaint: Orthopedic CARMITA: 4 Review of Systems All systems reviewed & are unremarkable except as noted in HPI and below PFSH All Active Problems Chronic shoulder pain (Acute) Pathologic fracture of thoracic vertebrae (Acute) Degenerative disc disease, cervical (Acute) Lytic lesion of bone on x-ray (Acute) Pathological fracture of humerus (Acute) Suicidal ideation (Acute) Paranoid delusion (Acute) Anemia, iron deficiency (Acute) Closed right humeral fracture (Acute) Psychosis (Acute) Cholelithiasis (Chronic) Medical History Anemia Cirrhosis Hypothyroidism Pancytopenia Portal hypertension Schizophrenia Surgical History Surgical history unknown Family History Other Family history unobtainable due to patient's condition Social History Smoking/Tobacco Use Status: Former Tobacco Use Smoking risk assessment performed?: Yes Alcohol Intake: former Drug use: Never Substance use type: former substance user Do you feel safe at home: Yes Do you feel safe in your relationship?: Yes Exam Narrative Exam Narrative: 1.Const: Well-nourished, Well-developed, appearing stated age 2.Eyes: PERRL, no conjunctival injection, and symmetrical lids. 3.ENT: Atraumatic external nose and ears. Moist MM. Neck: Symmetric, trachea midline, No thyromegaly. 4.CVS: +S1/S2, No murmurs or gallops. Peripheral pulses 2+ and equal in all extremities. Brisk capillary refill in all extremities. 5.RESP: Unlabored respiratory effort. Clear to auscultation bilaterally. No wheezes rales or rhonchi 6.GI: Soft, Nontender/Nondistended, No hepatosplenomegaly. No guarding or rebound. 7.MSK: Normocephalic/Atraumatic, Extremities w/o deformity or ttp No cyanosis or clubbing, Normal movement of all extremities. Patient is actually able to move his upper extremities well, but does have some notable restriction in range of motion for the right shoulder. 8.Skin: Warm, Dry. No rashes or lesions. 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 Sensation grossly intact, no focal neurologic deficits. 10.Psych: (AAO) x3. Somewhat confrontational attitude. Course Vital Signs Vital signs: Vital Signs Temperature 36.5 C 04/06/22 20:15 Pulse 78 04/06/22 20:15 Respiratory Rate 20 04/06/22 20:15 Pulse Oximetry 98 04/06/22 20:15 Temperature 36.5 C 04/06/22 20:15 Pulse 78 04/06/22 20:15 Respiratory Rate 20 04/06/22 20:15 Respiratory Effort Non-Labored 04/06/22 20:23 Pulse Oximetry 98 04/06/22 20:15
== END 2022-04-06 21:09 | disposition home or self-care (01) ==
PROVIDERS: Emergency Provider Student in an Organized Health Care Education/Training Program
DX: M25.511 Pain in right shoulder (principal); G89.29 Other chronic pain; Z87.891 Personal history of nicotine dependence
CPT/HCPCS: 99283; 99284

== ENCOUNTER 2022-04-07 11:24 | Emergency (ER) | payer OTHER, SELFPAY ==
[2022-04-07] VITALS (146 sets, daily range): BP systolic 50–182; BP diastolic 31–160; PULSE 62–125; RESP 11–31; TEMP 36.4–36.7; O2SAT 76–100
--- NOTE | 2022-04-07 11:30 | DI.CT_ITS ---
Exam(s) CT HEAD WO EXAM: CT HEAD WO CLINICAL HISTORY: Altered mental status. TECHNIQUE: Imaging Protocol: Axial computed tomography images with coronal and sagittal reformatted images were created and reviewed COMPARISON: CT CT HEAD CERVICAL SPINE WO from 12/21/2021 FINDINGS: There is mild generalized cerebral atrophy. No evidence of acute intracranial hemorrhage, mass effect, or midline shift. The orbital structures are unremarkable. The temporal bone structures appear intact. Calvarium: Normal. Visualized Paranasal sinuses/Mastoids: Clear. IMPRESSION: No evidence of acute intracranial process.. RADIATION DOSE DELIVERED: 773.54mGy.cm Total DLP 773.54mGy.cm Total DLP !Error CTDIvol DATA REPOSITORY: All CT scans at this facility are submitted to the National Radiology Data Registry (NRDR) Dose Index Registry (DIR) with the [employer] (ACR). RADIATION OPTIMIZATION: All CT scans at this facility use at least one of these dose optimization te chniques: automated exposure control; mA and/or kV adjustment per patient size (includes targeted exa ms where dose is matched to clinical indication); or iterative reconstruction.
--- NOTE | 2022-04-07 11:30 | RT.EKG_ITS ---
APPROVED REPORT Exam: Resting ECG Reason for Exam: [facility] Patient Location: E HR:89 bpm ECG Measurements Heart Rate 89 AXIS NH 158 P 72 QRSd 96 QRS 35 QT 400 T 25 QTc 487 Conclusion Sinus rhythm...normal P axis, V-rate 60- 99 Supraventricular bigeminy...bigeminy string>4 w/ SV complexes Repol abnrm suggests ischemia, anterolateral...ST dep, T neg, I aVL V2-V6 st dep inf lateral
--- NOTE | 2022-04-07 11:39 | ED.GENADUL_ITS ---
Discharge Plan Disposition Patient Disposition: [facility] Condition: Critical Discharge Details Clinical Impression: Acute GI bleeding, Hemorrhagic shock, Septic shock, Acidosis, metabolic, with respiratory acidosis, Transaminitis Primary Care Provider: KENTON NIEVES ED Provider: Pankaj Montenegro Home Meds and New Rx's Prescriptions: No Action cyclobenzaprine 10 mg tablet 10 mg PO HS PRN (Reason: muscle spasm) Qty: 15 0RF furosemide 20 mg Tablet 20 mg PO QAM albuterol 90 mcg/actuation Aerosol 90 mcg INHALATION TID PRN multivitamin [Multiple Vitamins] Tablet 1 tab PO DAILY Qty: 0 0RF folic acid 1 mg Tablet 1 mg PO DAILY Qty: 0 0RF alum-mag hydroxide-simeth [Mag-Al Plus] 200-200-20 mg/5 mL Suspension 30 ml PO Q2H PRN PRNQty: 0 0RF thiamine mononitrate (vit B1) [Vitamin B-1 (mononitrate)] 100 mg Tablet 100 mg PO DAILY Qty: 0 0RF lactulose 20 gram/30 mL Solution 15 g PO BID Qty: 0 0RF aspirin 325 mg Tablet 325 mg PO DAILY metoprolol succinate 50 mg Tablet Extended Release 24 Hr 75 mg PO DAILY spironolactone 25 mg Tablet 25 mg PO DAILY haloperidol 10 mg Tablet 10 mg PO .QHS benztropine 1 mg Tablet 1 mg PO .[facility] Discharge Data Discharge Date/Time-TO BE ENTERED AT DEPARTURE: 04/07/22 21:52 Medical Decision Making <Becky Sims NP - Last Filed: 04/07/22 16:01> Work-up ordered including cardiac troponin, EKG, lipase, coagulopathy studies, urinalysis. Will order head CT and chest x-ray Care is to be taken over by ER attending Dr. Pankaj Montenegro at his request. <Pankaj Montenegro MD - Last Filed: 04/12/22 14:55> Patient seen and time of critical surge which has delayed documentation. 66yo m here with altered mental status, hypotensive, critical condition on arrival. IV access was obtained by nursing. IV fluid bolus initiated. Initial labs were reviewed and patient severely anemic. Central line right groin was placed by me emergently for resuscitation. Patient was intubated for confusion and airway protection. Central line and intubation performed without complication. Patient given stat 2 units of PRBCs. Blood pressure did improve temporarily. Patient again became hypotensive. Will give additional 1 unit of PRBCs. Additional labs reviewed: Patient has significant leukocytosis with lactic acidosis. Concern for sepsis, unclear source. CT of the chest abdomen pelvis with IV contrast was obtained and interpreted by radiology: Patient has old vertebral compression fractures are concerning for pathologic fracture. Patient has mild congestive heart failure with portal venous hypertension. He does have some dependent edema in his lungs with questionable pneumonia. I will initiate treatment with cefepime and azithromycin IV. -- Additional history obtained, patient has history of iron deficiency anemia, schizophrenia, pathologic fracture of his right humerus and vertebral body pathologic fractures, has not desired treatment for these, cirrhosis of the liver noted in the past, prior alcoholism, prior drug use. 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 -- Screening EKG was reviewed and interpreted by me: Please see report, sinus rhythm 89 bpm, ST depression noted inferior lateral. No STEMI. Initial troponin is negative. --ABG was reviewed by me and consistent with metabolic and respiratory acidosis. I spoke with respiratory therapy who will increase respiratory rate and tidal volume. On reassessment patient remained hypotensive. I will initiate treatment with norepinephrine infusion. -- CT of the chest /abd/pelv interpreted by radiology:IMPRESSION: No evidence of acute vascular abnormality of the chest, abdomen or pelvis. Findings suggesting mild CHF.? No pulmonary embolic disease. Hepatic cirrhosis, cholelithiasis,presumed portal venous hypertension with multiple upper abdominal venous collaterals but no ascites. Multiple vertebral compression fractures, these appear stable since December 21 CT, etiology may be metastatic disease versus osteoporosis/cystic degenerative changes. CT head interpreted by radiology: IMPRESSION: No evidence of acute intracranial process.. 1515 -- I spoke with hospitalist who request transfer to higher level of care if available. Called [facility] transfer center to request transfer. 1540 --I received call back from [facility] who noted they were at capacity and unable to accept the patient in transfer. I called [facility] transfer center to request transfer. --[facility] called to note no availability to accept the patient. I then called [facility] in [place] and they have no capacity to accept the patient. I then called [facility] and requested transfer to [facility]. Awaiting callback. --Repeat hemoglobin shows significant improvement now 7.5. Patient reassessed and currently maintaining MAP of upper 60s on 0.17 mcg/kg/min nor epi drip. Plan to titrate down fentanyl and will give IV fluid bolus 500 mL. 1729 --I spoke with Dr. Muñoz at [facility], discussed ED presentation course, he will accept the patient in transfer. He recommends repeat EKG at this time as well as adding vancomycin to antibiotic coverage. 1899 -- Repeat rectal exam reveals black tarry stool, hemoccult positive, no br ight red blood. Consider variceal bleed given h/o cirrhosis. Will initiate treatment with pantoprazole IV infusion. Concern for hemorrhagic and spetic shock. Will contact [facility] critcal care. -- I spoke with [facility] see critical care who notes concern that may not have GI available tonight for scope. If GI not available he will contact [facility] transfer center. 1999 -- I received call from Dr. Garcia at [facility] critical care, discussed ED presentation and course, he is reviewing case with [facility] transfer center. 2006 -- I spoke again with Dr. Garcia. He will accept the patient in transfer. He requests give vitamin K 10IV, check cbc post PRBC (patient will have received 4U total). Lab Data Lab results reviewed: Yes I reviewed the patient's lab results. HPI <Becky Sims NP - Last Filed: 04/07/22 16:01> General Mode of arrival: EMS . Date/Time Provider Initiated Documentation: 04/07/22 11:30 . Limitations to Documentation: altered mental status . Information obtained by: EMS, RN notes reviewed and old records reviewed . HPI Narrative: 56-year-old male presents to the ER via EMS with complaint of altered mental status. Patient for the last 2 days in a row complaining of shoulder pain. He presents today pale, altered mental status, hypotensive with a blood pressure of 60/30. He is unable to answer my questions. Blood sugar prior to arrival was 130. Related Data Home Medications Medication Instructions Recorded Confirmed albuterol 90 mcg/actuation aerosol 90 mcg inhalation TID PRN 01/03/21 04/06/22 inhaler furosemide 20 mg tablet 20 mg PO QAM 01/03/21 04/06/22 aluminum-mag hydroxide-simethicone 30 ml PO Q2H PRN PRN #0 mL 12/29/21 04/06/22 200 mg-200 mg-20 mg/5 mL oral susp (Mag-Al Plus) folic acid 1 mg tablet 1 mg PO DAILY #0 tabs 12/29/21 04/06/22 lactulose 20 gram/30 mL oral 15 g (22.5 mL) PO BID #0 mL 12/29/21 04/06/22 solution multivitamin (Multiple Vitamins 1 tab PO DAILY #0 tabs 12/29/21 04/06/22 tablet) thiamine mononitrate (vit B1) 100 100 mg PO DAILY #0 tabs 12/29/21 04/06/22 mg tablet (Vitamin B-1 (mononitrate)) aspirin 325 mg tablet 325 mg PO DAILY 03/01/22 04/06/22 benztropine 1 mg tablet 1 mg PO .QHS 03/01/22 04/06/22 haloperidol 10 mg tablet 10 mg PO .QHS 03/01/22 04/06/22 metoprolol succinate 50 mg 75 mg PO DAILY 03/01/22 04/06/22 tablet,extended release 24 hr spironolactone 25 mg tablet 25 mg PO DAILY 03/01/22 04/06/22 cyclobenzaprine 10 mg tablet 10 mg PO HS PRN muscle spasm #15 03/03/22 04/06/22 tabs Previous Rx's Medication Instructions Recorded aluminum-mag hydroxide-simethicone 30 ml PO Q2H PRN PRN #0 mL 12/29/21 200 mg-200 mg-20 mg/5 mL oral susp (Mag-Al Plus) folic acid 1 mg tablet 1 mg PO DAILY #0 tabs 12/29/21 lactulose 20 gram/30 mL oral 15 g (22.5 mL) PO BID #0 mL 12/29/21 solution multivitamin (Multiple Vitamins 1 tab PO DAILY #0 tabs 12/29/21 tablet) thiamine mononitrate (vit B1) 100 100 mg PO DAILY #0 tabs 12/29/21 mg tablet (Vitamin B-1 (mononitrate)) cyclobenzaprine 10 mg tablet 10 mg PO HS PRN muscle spasm #15 03/03/22 tabs Allergies Allergy/AdvReac Type Severity Reaction Status Date / Time No Known Allergies Allergy Unverified 04/06/22 20:22 General Stated Complaint: GenMedical CARMITA: 2 PFSH <Becky Sims NP - Last Filed: 04/07/22 16:01> All Active Problems (Updated 04/07/22 @ 20:25 by Pankaj Montenegro MD) Chronic shoulder pain (Acute) Acute GI bleeding (Acute) Hemorrhagic shock (Acute) Septic shock (Acute) Acidosis, metabolic, with respiratory acidosis (Acute) Transaminitis (Acute) Pathologic fracture of thoracic vertebrae (Acute) Degenerative disc disease, cervical (Acute) Lytic lesion of bone on x-ray (Acute) Pathological fracture of humerus (Acute) Suicidal ideation (Acute) Paranoid delusion (Acute) Anemia, iron deficiency (Acute) Closed right humeral fracture (Acute) Psychosis (Acute) Cholelithiasis (Chronic) Medical History Anemia Cirrhosis Hypothyroidism Pancytopenia Portal hypertension Schizophrenia Surgical History Surgical history unknown Family History Other Family history unobtainable due to patient's condition Social History Smoking/Tobacco Use Status: Former Tobacco Use Smoking risk assessment performed?: Yes Alcohol Intake: former Details: unable to obtain due to patient condition. Additional Social history: unable to obtain due to patient condition. Course <Becky Sims NP - Last Filed: 04/07/22 16:01> Vital Signs Vital signs: Vital Signs Temperature 36.5 C 04/07/22 11:34 Pulse 81 04/07/22 11:34 Respiratory Rate 28 H 04/07/22 11:34 Blood Pressure 50/31 L 04/07/22 11:34 Pulse Oximetry 100 04/07/22 11:34 Temperature 36.5 C 04/07/22 11:34 Temperature Source Temporal Artery Scan 04/07/22 11:34 Pulse 81 04/07/22 11:34 Respiratory Rate 28 H 04/07/22 11:34 Blood Pressure 50/31 L 04/07/22 11:34 Blood Pressure Position Supine 04/07/22 11:34 Pulse Oximetry 100 04/07/22 11:34 Oxygen Delivery Method Room Air 04/07/22 11:34 Oxygen Flow Rate 0 04/07/22 11:34 <Pankaj Montenegro MD - Last Filed: 04/12/22 14:55> Central Line Placement Right Femoral: Time Out Performed: Yes Patient Placed on Monitor/Pulse Ox: Yes Prep: mask, gown and gloves Central Line Prep: Chlorhexidine scrub Local Anesthetic: Lidocaine 1% Amount of anesthesia used (mL): 5 Central Line Lumen Inserted: single Post Procedure: good blood return, all ports aspirated, flushed, capped and sutured in place with 3-0 nylon Patient Tolerated Procedure: well Complications: none Intubation Time out performed: Yes sedative: Ketamine Mg Given: 150 paralytic: Rocuronium Mg Given: 100 Laryngoscope: fiberoptic video scope ET Tube Size: 7.5 ET Tube Uncuffed: Yes Tube Secured Depth (cm): 2 Tube Secured Location: lips Tube Placement Confirmation: visualized tube passing through cords Patient Tolerated Procedure: well and no complications <Pankaj Montenegro MD - Last Filed: 04/12/22 14:55> Critical Care Time Critical Care Time: Yes Total Critical Care Time: 100 Attestation: I spent greater than 100 minutes addressing this patient's immediate life threats. Please see MDM section of note. This time was spent engaged in work directly related to the patient's care, exclusive of separate procedures, and failure to initiate these interventions would have likely resulted in clinically significant or life threatening deterioration in the patient's condition.
[2022-04-07 12:13] LABS: MCH 29.2 pg (27.0-33.0); MCV 97 fL (80-95); MPV 10.6 fL (8.0-11.0); Platelet Count 236 10^3/uL (130-400); RBC 1.13 10^6/uL (4.36-5.78); RDW 21.2 % (11.8-14.1); RDW-SD 65.8 fL
[2022-04-07 12:30] LABS: ALT 101 U/L (16-63); AST 122 U/L (15-37); Albumin 2.3 g/dL (3.4-5.0); Alkaline Phosphatase 75 U/L (46-116); Anion Gap 23.1 mmol/L (3-11); BUN 61 mg/dL (7-18); Bilirubin, Total 0.6 mg/dL (0.2-1.0); CO2 11.9 mmol/L (21.0-32.0); CREATININE 1.4 mg/dL (0.70-1.30); Calcium 7.9 mg/dL (8.5-10.1); Chloride 96 mmol/L (98-107); Estimated GFR 50.55 (mL/min/1.73m2); Glucose 113 mg/dL (74-106); Lipase 480 U/L (73-393); Magnesium 2.4 mg/dL (1.8-2.4); Potassium 5.4 mmol/L (3.5-5.1); Sodium 131 mmol/L (136-145); Total Protein 5.1 g/dL (6.4-8.2); Troponin I < 50 ng/L (<or=60)
[2022-04-07 12:31] LABS: ETHANOL BLOOD < 3.0 mg/dL (<10)
[2022-04-07 12:34] LABS: INR 1.4 (0.9-1.1); PTT Activated 18.1 sec (21.0-27.5); Prothrombin Time 13.7 sec (9.3-11.0)
[2022-04-07 12:42] LABS: HGB 3.3 g/dL (13.5-17.5); WBC 28.82 10^3/uL (4.4-10.8)
[2022-04-07 12:52] LABS: Source Nasal/Nares
[2022-04-07 12:53] LABS: Acetaminophen 4 ug/mL (10-30); Salicylate 3.1 mg/dL (<2.8)
[2022-04-07 13:03] LABS: Absolute Lymphocyte Count 2.02 10^3/uL (1.2-3.4); Absolute Monocyte Count 1.73 10^3/uL (0.1-0.8); Absolute Neutrophil Count 24.79 10^3/uL (1.2-6.7); Anisocytosis 3+; Diff Comment Manual Differential; Metamyelocytes % 1
[2022-04-07 13:04] LABS: Polychromasia Present
[2022-04-07 13:26] LABS: COVID-19 PCR Negative (Negative)
[2022-04-07] MEDS: fentaNYL 1,000 MCG in Normal Saline 80 ML 7.63 MCG IV (13:45)
[2022-04-07] MEDS: MIDAZOLAM 50 MG in Normal Saline 90 ML IV (13:45)
[2022-04-07 13:47] LABS: Bilirubin Negative (Negative); Blood Negative (Negative); Clarity Clear (Clear); Glucose Negative (Negative); Ketones Negative (Negative); Leukocyte Esterase Negative (Negative); Nitrite Negative (Negative); Specific Gravity >= 1.030 (1.005-1.025); Urobilinogen 0.2 EU/dL (Up TO 0.2); pH 5.5 (5-8)
[2022-04-07 14:01] LABS: *AMPHETAMINES SCREEN URINE Negative (Negative); *BARBITURATES SCREEN URINE Negative (Negative); *BENZODIAZEPINES SCREEN URINE Negative (Negative); Cannabinoids THC Negative (Negative); Cocaine Screen,Urine Negative (Negative); METHADONE URINE SCREEN Negative (Negative); OPIATES URINE SCREEN Negative (Negative)
[2022-04-07 14:03] LABS: Tricyclic Antidepressants Negative (Negative)
[2022-04-07] MEDS: Omnipaque 350 MG/ML 100 ML BTL IJ (14:13)
--- NOTE | 2022-04-07 14:25 | DI.CT_ITS ---
Exam(s) CT CHEST PE ABD PELVIS W EXAM: CT CHEST PE ABD PELVIS W TECHNIQUE: CT angiography of the chest, abdomen and pelvis was performed with bolus infusion of 100 cc of Omnipaque 350. Axial CT angiography was performed with multi-slice acquisition and multi-planar and/or 3D reconstruc tions. COMPARISON: CT 3D RECON ON CT WORKSTATION from 12/21/[address] CHEST/ABD/PEL W from 12/21/2021 FINDINGS: There are areas of dependent pulmonary atelectasis and/or consolidation with probable dependent edema . There are severe changes of pulmonary emphysema. There are fibrotic changes of the lungs. There is cardiac enlargement.. No pleural effusion. No evidence of pulmonary embolic disease. No thoracic aortic dissection or aneurysm. Major branches of the thoracic aorta appear normal. . No mediastinal o r hilar adenopathy. Tracheobronchial tree appears intact. There is an endotracheal tube in position. Multiple thoracic spine compression fractures are seen association lytic lesions, particularly T1 aarti tebral body, the appearance is grossly unchanged from prior examination of Dec 21 2021. Metastatic lesions versus osteoporotic/degenerative cystic etiology. There are changes of hepatic cirrhosis with a markedly nodule irregular hepatic contour. No gross fo dat lesion identified. No evidence of hydronephrosis or nephrolithiasis. There is cholelithiasis. There is pericholecystic edema or fluid collection which may be secondary t o cirrhosis. No significant ascites identified elsewhere in the abdomen.. Pancreas is unremarkable. Spleen is unremarkable. Kidneys and adrenals are grossly unremarkable in appearance, no urinary tract calcification or obstru ction. Bagley catheter in urinary bladder. No abdominal aortic aneurysm or dissection. Major branches of the abdominal aorta appear normal. No a bdominal or pelvic adenopathy. Normal appendix. No significant abdominal wall hernia. No focal bowel pathology. The colon is collapsed which would make it difficult to exclude colonic wall thickening b ut no direct evidence of colonic wall thickening is seen to suggest colitis. IMPRESSION: No evidence of acute vascular abnormality of the chest, abdomen or pelvis. Findings suggesting mild CHF. No pulmonary embolic disease. Hepatic cirrhosis, cholelithiasis,presumed portal venous hypertension with multiple upper abdominal v enous collaterals but no ascites. Multiple vertebral compression fractures, these appear stable since December 21 CT, etiology may be meta static disease versus osteoporosis/cystic degenerative changes. RADIATION DOSE DELIVERED: Total DLP Total DLP !Error CTDIvol DATA REPOSITORY: All CT scans at this facility are submitted to the National Radiology Data Registry (NRDR) Dose Index Registry (DIR) with the [employer] (ACR). RADIATION OPTIMIZATION: All CT scans at this facility use at least one of these dose optimization te chniques: automated exposure control; mA and/or kV adjustment per patient size (includes targeted exa ms where dose is matched to clinical indication); or iterative reconstruction.
[2022-04-07 14:38] LABS: BE -13 mmol/L (-2-3); HCO3 16 mmol/L (22-26); pCO2 51 mmHg (35-45); pO2 117 mmHg (80-105); sO2 99 % (95-98); tCO2 17 mmol/L (23-27)
[2022-04-07 14:42] LABS: FIO2 45 %; Site Right Radial; pH 7.11 (7.35-7.45)
[2022-04-07 14:56] LABS: Troponin I < 50 ng/L (<or=60)
[2022-04-07] MEDS: CEFEPIME 2 GM in Normal Saline 100 ML IVPB (15:05)
--- NOTE | 2022-04-07 15:07 | DI.RAD_ITS ---
Exam(s) XR PORTABLE CHEST AP POST LINE EXAM: XR PORTABLE CHEST AP POST LINE CLINICAL HISTORY: Post NG tube TECHNIQUE: COMPARISON: No exams were available for comparison FINDINGS: Portable chest at 1518 hours. There is a tracheostomy tube in good position. There is an apparent N G tube the tip of which overlies the mid esophagus. Bilateral diffuse pulmonary interstitial radiode nsities noted as seen on CT. IMPRESSION: RADIATION DOSE DELIVERED: Total DLP
[2022-04-07] MEDS: Ketamine 500 MG/10 ML VIAL 100 MG IVP (15:11)
[2022-04-07] MEDS: AZITHROMYCIN 500 MG in Normal Saline 250 ML 250 MG IVPB (16:04)
--- NOTE | 2022-04-07 16:12 | NUR.NOTE ---
Nursing Note: unable to document in the MAR: IS and pharmacy aware. gave Rocuronium 100mg IV push @ 13:17 started fentanyl drip @ 1 mcg/kg/hr at 1345; titrated to 2.5 mcg/kg/hr started midazolam drip @ 0.01 mg/kg/hr at 1345; titrated to 0.1 mg/kg/hr witnessed by ASHLEIGH, RN
[2022-04-07 16:37] LABS: BE (Venous) -8 mmol/L (-2-3); HCO3 (Venous) 21 mmol/L (23-28); O2 Sat (Venous) 62 %; TCO2 (Venous) 21 mmol/L (24-29); pCO2 (Venous) 53 mmHg (41-51); pO2 (Venous) 35 mmHg
[2022-04-07 16:38] LABS: Abs Immature Grans 0.26 10^3/uL (0.0-0.06); Absolute Basophil Count 0.03 10^3/uL (0.0-0.2); Basophils % 0.1; HGB 7.5 g/dL (13.5-17.5); Lymphocytes % 7.5; MCH 29.6 pg (27.0-33.0); MCHC 32.6 % (32.0-36.0); MCV 91 fL (80-95); MPV 10.5 fL (8.0-11.0); Monocytes % 9.6; Neutrophils % 81.8; Nucleated RBC 0.4 % (0.0-0.3); Platelet Count 181 10^3/uL (130-400); RBC 2.53 10^6/uL (4.36-5.78); RDW 17.1 % (11.8-14.1)
[2022-04-07 16:40] LABS: Absolute Lymphocyte Count 1.93 10^3/uL (1.2-3.4); Absolute Monocyte Count 2.47 10^3/uL (0.1-0.8); Absolute Neutrophil Count 21.03 10^3/uL (1.2-6.7); WBC 25.71 10^3/uL (4.4-10.8)
--- NOTE | 2022-04-07 17:07 | NUR.NOTE ---
170 report givn to Kim Hernández RN Midazolam drip at 0.1 mg/kg/hr and Fentanyl drip at 2.5 mcg/kg/hr for sedation. Multiple attempts made to insert NG/OG tube without success. Dr. Montenegro aware.
--- NOTE | 2022-04-07 17:15 | RT.EKG_ITS ---
APPROVED REPORT Exam: Resting ECG Reason for Exam: repeat Patient Location: E HR:67 bpm ECG Measurements Heart Rate 67 AXIS PA 170 P 70 QRSd 88 QRS 35 QT 423 T 14 QTc 446 Conclusion Sinus rhythm...normal P axis, V-rate 60- 99
[2022-04-07] MEDS: Lactated Ringers 1,000 ML 1000 ML IV (17:33)
[2022-04-07 17:45] LABS: Ammonia < 10 umol/L (11-32)
[2022-04-07 17:54] LABS: Lactate 3.2 mmol/L (0.6-1.4)
[2022-04-07 18:02] LABS: ALT 149 U/L (16-63); AST 188 U/L (15-37); Alkaline Phosphatase 64 U/L (46-116); Anion Gap 7.6 mmol/L (3-11); BUN 55 mg/dL (7-18); Bilirubin, Total 0.8 mg/dL (0.2-1.0); CO2 24.4 mmol/L (21.0-32.0); Calcium 7.1 mg/dL (8.5-10.1); Chloride 101 mmol/L (98-107); Glucose 137 mg/dL (74-106); Potassium 4.9 mmol/L (3.5-5.1); Sodium 133 mmol/L (136-145); Total Protein 4.4 g/dL (6.4-8.2)
[2022-04-07] MEDS: VANCOMYCIN 1,500 MG in Normal Saline 250 ML 167 MG IVPB (18:28)
[2022-04-07] MEDS: PANTOPRAZOLE 80 MG in Normal Saline 100 ML 10 MG IV (19:55)
[2022-04-07] MEDS: Pantoprazole 40 MG VIAL IVP (20:21)
[2022-04-07] MEDS: PHYTONADIONE 10 MG in Normal Saline 50 ML 200 MG IVPB (20:58)
[2022-04-07 20:59] LABS: BE (Venous) -4 mmol/L (-2-3); HCO3 (Venous) 23 mmol/L (23-28); O2 Sat (Venous) 51 %; TCO2 (Venous) 23 mmol/L (24-29); pCO2 (Venous) 48 mmHg (41-51); pH (Venous) 7.29 (7.31-7.41); pO2 (Venous) 27 mmHg
[2022-04-07 21:02] LABS: Abs Immature Grans 0.29 10^3/uL (0.0-0.06); Absolute Monocyte Count 2.71 10^3/uL (0.1-0.8); Absolute Neutrophil Count 20.56 10^3/uL (1.2-6.7); Basophils % 0.2; HCT 25.2 % (40.0-50.0); HGB 8.4 g/dL (13.5-17.5); Immature Grans % 1.1; Lymphocytes % 8.5; MCH 29.3 pg (27.0-33.0); MCHC 33.3 % (32.0-36.0); MCV 88 fL (80-95); MPV 10.2 fL (8.0-11.0); Monocytes % 10.5; Neutrophils % 79.7; Nucleated RBC 0.7 % (0.0-0.3); Platelet Count 182 10^3/uL (130-400); RBC 2.87 10^6/uL (4.36-5.78); RDW 16.9 % (11.8-14.1); RDW-SD 51.6 fL
[2022-04-07 21:05] LABS: Absolute Basophil Count 0.05 10^3/uL (0.0-0.2); Absolute Lymphocyte Count 2.19 10^3/uL (1.2-3.4)
[2022-04-07] MEDS: Vasopressin 20 UNITS/ML VIAL (21:27)
[2022-04-07] MEDS: Normal Saline 100 ML (21:29)
[2022-04-07 21:30] LABS: Anisocytosis 1+; Diff Comment Agrees w/ Instrument; Hypochromasia 1+; Polychromasia Present
--- NOTE | 2022-04-08 02:55 | NUR.NOTE ---
midazolam drip sent with ems to start when current drip is finished.Nursing Note:
--- NOTE | 2022-04-20 14:08 | NUR.NOTE ---
Nursing Note: Chelsea BURTON, called asking about this patient's wallet and keys. He has been looking for them since he was transferred to [facility] from our facility. We do not have them here in the ED and they are not in the safe on [place].
== END 2022-04-07 21:52 ==
PROVIDERS: Registered Nurse Emergency; Emergency Provider Student in an Organized Health Care Education/Training Program; PCP Internal Medicine
DX: K92.2 Gastrointestinal hemorrhage, unspecified (principal); R57.8 Other shock; A41.9 Sepsis, unspecified organism; R65.21 Severe sepsis with septic shock; E87.2 Acidosis; R74.01 Elevation of levels of liver transaminase levels
CPT/HCPCS: 31500; 36415; 36556; 71045; 71275; 74177; 80053; 80307; 82805; 83690; 86850; 86900; 86901; 86920; 87040; 87635; 93005; 96365; 96366; 96367; 96368; 96375; 99291; 99292; 36600; 70450; 80320; 80329; 81003; 82140; 83605; 83735; 84484; 85025; 85610; 85730; 93010; J0456; J3010; J3430; J3490; P9016

== ENCOUNTER 2025-07-17 09:52 | Emergency (ER) | payer OTHER, MEDICARE, MEDICAID, SELFPAY ==
[2025-07-17] VITALS (13 sets, daily range): BP systolic 82–131; BP diastolic 57–81; PULSE 59–76; RESP 14–23; TEMP 36.6; O2SAT 96–100
--- NOTE | 2025-07-17 10:15 | RT.EKG_ITS ---
APPROVED REPORT Exam: Resting ECG Reason for Exam: chest pain Patient Location: E HR:68 bpm ECG Measurements Heart Rate 68 AXIS TN 184 P 31 QRSd 90 QRS 33 QT 402 T 20 QTc 429 Conclusion Sinus rhythm...normal P axis, V-rate 60- 99 Atrial premature complex...SV complex w/ short R-R interval Low voltage, precordial leads...precordial leads <1.0mV
--- NOTE | 2025-07-17 10:15 | DI.CT_ITS ---
Exam(s) CT CHEST/ABD/PEL W EXAM: CT CHEST/ABD/PEL W CLINICAL HISTORY: fall, with back pain radiating into abdomen. TECHNIQUE: Imaging Protocol: Axial computed tomography images with coronal and sagittal reformatted images were created and reviewed CONTRAST MATERIAL: Intravenous: Omnipaque 350 Contrast volume:100 ml Oral: None COMPARISON: CT CT CHEST PE ABD PELVIS W from 04/07/2022 FINDINGS: CHEST: There is prominent bilateral gynecomastia which has significantly increased when compared to the prior ct scan of march 2022. LUNGS: There COPD emphysematous changes in both lung bray but no evidence of lung contusion or pleural effusion or pneumothorax. There is relatively symmetrical interstitial cystic disease in both lower lobes. This is at level where there were previous significant infiltrates on prior chest CT scan of March 2022.. There are presently no infiltrates. No findings in the trachea and mainstem bronchi. MEDIASTINUM: No evidence of sternal fracture nor mediastinal hematoma no hilar nor mediastinal adenopathy. Visualized thyroid appears unremarkable. CARDIAC: Heart size is normal. There is no pericardial effusion.Caliber of the thoracic aorta is within normal limits. OSSEOUS: There are compression fractures of T3, T7, and L1 again noted. No new fractures evident in the vertebral bodies. No obvious rib fractures.. ABDOMEN: There is no ascites. No evidence of bowel wall nor mesenteric hematoma. LIVER: Liver is cirrhotic. No liver lesions nor lacerations evident. There are no dilated intrahepatic ducts. GALLBLADDER/BILIARY: Cholelithiasis. There is a least 1 calcified gallstone. No gallbladder wall edema nor pericholecystic fluid. CBD is not dilated. PANCREAS: No evidence of pancreatic mass nor dilatation of the pancreatic duct. SPLEEN: Spleen size is slightly prominent measuring 13.9 cm craniocaudal. There are no splenic lacerations. No splenic lesions. Splenic vein is patent but there are some varices noted around the gastric fundus-GE junction. ADRENALS: There are no significant adrenal masses. KIDNEYS: Appear unremarkable.. No cysts nor solid lesions. No calculi. No hydronephrosis. ABDOMINAL AORTA: Calcified but not enlarged. Iliac arteries also calcified but not enlarged. LYMPH NODES: There is no retroperitoneal nor paraaortic adenopathy. ABDOMINAL WALL: No evidence of significant anterior abdominal wall nor inguinal hernia. GI: There is no evidence of bowel obstruction.No free air. No abscess. PELVIS: LYMPH NODES: There is no intrapelvic nor inguinal adenopathy. GI: No evidence of appendicitis.There is diverticulosis of the left side of the colon; less so in the sigmoid. There is no evidence of acute diverticulitis. URINARY BLADDER: Mildly distended. No obvious masses nor calculi in the bladder lumen. REPRODUCTIVE: Prostate size normal. Seminal vesicles unremarkable. OSSEOUS: No significant osseous lesions. Chronic compression fractures of T3, T7, and L1 again noted.. IMPRESSION: 1. There are nonacute compression fractures again noted in T3, T7, and L1 vertebral bodies. No new fractures identified. 2. No acute intrathoracic injury evident. Incidentally noted is impressive bilateral gynecomastia which has significantly increased from 2021. 3. The liver is cirrhotic and there is mild splenomegaly as well as varices collateralization. 4. Cholelithiasis without evidence of acute cholecystitis. 5. Diverticulosis without evidence of acute diverticulitis. These reports called by myself to ER provider 07/17/2025 at 1:30 p.m. RADIATION DOSE DELIVERED: 1,109.21mGy.cm Total DLP DATA REPOSITORY: All CT scans at this facility are submitted to the National Radiology Data Registry (NRDR) Dose Index Registry (DIR) with the [employer] (ACR). RADIATION OPTIMIZATION: All CT scans at this facility use at least one of these dose optimization techniques: automated exposure control; mA and/or kV adjustment per patient size (includes targeted exams where dose is matched to clinical indication); or iterative reconstruction.
--- NOTE | 2025-07-17 10:26 | DI.CT_ITS ---
Exam(s) CT THORACIC LUMBAR SPINE REC EXAM: CT THORACIC LUMBAR SPINE REC CLINICAL HISTORY: fall, back pain with radiation into abdomen TECHNIQUE: COMPARISON: CT CT CHEST/ABD/PEL W from 07/17/2025 FINDINGS: THORACIC SPINAL COLUMN: There are significant compression fractures of T3, T7, L1 which are not new and appear unchanged from March 2022. No acute fractures evident. No acute canal compromise. No facet joint malalignment in the thoracic spinal column. No obvious disc herniations. LUMBOSACRAL SPINAL COLUMN: L1 compression wedge fracture unchanged from previous. There are no new lumbar fractures. Mild degenerative changes in the facet joints. No facet joint malalignment. No significant disc herniations evident. There is mild canal stenosis at L4-5 level. Also mild bilateral foraminal stenosis at this level. Also at L5-S1. No significant osseous lesions. IMPRESSION: There are chronic compression fractures of T3, T7, and L1 which were evident on prior CT scan of 2021. There are no new fractures identified. Called by myself to ER provider 07/17/2025 at 1:30 p.m.
[2025-07-17] MEDS: diazePAM 10 MG/2 ML SYR 2.5 MG IVP (10:50)
[2025-07-17] MEDS: Lidocaine 5% Patch 1 PATCH TP (10:50)
[2025-07-17] MEDS: ACETAMINOPHEN 500 MG/50 ML BAG 200 MG IVPB (10:51)
[2025-07-17 11:02] LABS: Abs Immature Grans 0.01 10^3/uL (0.0-0.06); HCT 45.4 % (40.0-50.0); HGB 14.9 g/dL (13.5-17.5); Immature Grans % 0.2 %; MCH 30.9 pg (27.0-33.0); MCHC 32.8 % (32.0-36.0); MCV 94 fL (80-95); MPV 10.2 fL (8.0-11.0); RBC 4.82 10^6/uL (4.36-5.78); RDW 13.0 % (11.8-14.1); RDW-SD 44.8 fL; WBC 4.19 10^3/uL (4.4-10.8)
[2025-07-17 11:05] LABS: Platelet Count 96 10^3/uL (130-400)
[2025-07-17 11:33] LABS: Lipase 35 U/L (<53)
[2025-07-17 11:36] LABS: ALT 28 U/L (10-49); AST 32 U/L (<34); Albumin 4.0 g/dL (3.2-5.0); Alkaline Phosphatase 143 U/L (46-116); Anion Gap 3.9 mmol/L (3-11); BUN 14 mg/dL (9-23); Bilirubin, Total 0.70 mg/dL (0.2-1.2); CO2 32.1 mmol/L (20.0-31.0); Calcium 8.9 mg/dL (8.3-10.6); Chloride 106 mmol/L (98-107); Glucose 82 mg/dL (74-106); Potassium 4.2 mmol/L (3.5-5.1); Sodium 142 mmol/L (136-145); Total Protein 7.1 g/dL (5.7-8.2)
[2025-07-17 11:48] LABS: Troponin I < 3 ng/L (<54)
[2025-07-17] MEDS: MORPHine 10 MG/ML VIAL 4 MG IVP (11:48)
[2025-07-17] MEDS: Albuterol/Ipratropium 3 ML UPD VIAL UPD (12:00)
[2025-07-17] MEDS: Normal Saline - Diluent 50 ML VIAL IJ (12:19)
[2025-07-17] MEDS: Omnipaque 350 MG/ML 100 ML BTL IJ (12:19)
[2025-07-17] MEDS: Normal Saline Flush 10 ML SYR IVP (12:19)
[2025-07-17] MEDS: Naloxone 0.4 MG/ML VIAL 0.2 MG IVP (12:28)
--- NOTE | 2025-07-17 12:30 | DI.CT_ITS ---
Exam(s) CT HEAD WO EXAM: CT HEAD WO CLINICAL HISTORY: ams. TECHNIQUE: Imaging Protocol: Axial computed tomography images with coronal and sagittal reformatted images were created and reviewed COMPARISON: CT CT HEAD WO from 04/07/2022 FINDINGS: There are no skull fractures. There is no fluid in the visualized paranasal sinuses. There is no evidence of intracranial hemorrhage, mass effect, or shift of midline structures. There are no extra-axial fluid collections. The ventricles are not enlarged or shifted and there is no blood within the ventricular system nor within the basal cisterns. IMPRESSION: No acute intracranial findings on this noninfused CT scan of the brain. RADIATION DOSE DELIVERED: 892.77mGy.cm Total DLP DATA REPOSITORY: All CT scans at this facility are submitted to the National Radiology Data Registry (NRDR) Dose Index Registry (DIR) with the [employer] (ACR). RADIATION OPTIMIZATION: All CT scans at this facility use at least one of these dose optimization techniques: automated exposure control; mA and/or kV adjustment per patient size (includes targeted exams where dose is matched to clinical indication); or iterative reconstruction.
--- NOTE | 2025-07-17 13:39 | ED.GENADUL_ITS ---
Discharge Plan Disposition Patient Disposition: Home Condition: Stable Discharge Details Clinical Impression: Back pain, Fall, Accidental overdose, Onychomycosis Primary Care Provider: KENTON NIEVES ED Provider: Adia Cordon Home Meds and New Rx's Prescriptions: Continued cyclobenzaprine 10 mg tablet 10 mg PO HS PRN (Reason: muscle spasm) Qty: 15 0RF furosemide 20 mg Tablet 20 mg PO QAM albuterol 90 mcg/actuation Aerosol 90 mcg INHALATION TID PRN multivitamin [Multiple Vitamins] Tablet 1 tab PO DAILY Qty: 0 0RF folic acid 1 mg Tablet 1 mg PO DAILY Qty: 0 0RF alum-mag hydroxide-simeth [Mag-Al Plus] 200-200-20 mg/5 mL Suspension 30 ml PO Q2H PRN PRNQty: 0 0RF thiamine mononitrate (vit B1) [Vitamin B-1 (mononitrate)] 100 mg Tablet 100 mg PO DAILY Qty: 0 0RF lactulose 20 gram/30 mL Solution 15 g PO BID Qty: 0 0RF aspirin 325 mg Tablet 325 mg PO DAILY metoprolol succinate 50 mg Tablet Extended Release 24 Hr 75 mg PO DAILY spironolactone 25 mg Tablet 25 mg PO DAILY haloperidol 10 mg Tablet 10 mg PO .QHS benztropine 1 mg Tablet 1 mg PO .QHS Discharge Instructions Instructions: Upper Back Pain (DC) Additional Instructions: Please take Tylenol 500 mg every 6 hours for pain control Given you a tablet of oxycodone, please do not take this until this evening I am giving you a referral to physical therapy and placing referral to podiatry Please also follow-up with your primary care physician, you may apply Lidoderm patches, they are [id number], it is 12 hours on 12 hours off for application Please return to develop fever, chills, strength or sensation changes, changes in bowel or bladder, or should any new concerns arise Stand Alone Forms: Portal Information Referrals: KENTON NIEVES [Primary Care Provider, Medicine] Vianey Hilario DPM [[facility] STAFF PHYSICIAN, Podiatry] Discharge Data Discharge Date/Time-TO BE ENTERED AT DEPARTURE: 07/17/25 14:32 HPI General Date/Time Provider Initiated Documentation: 07/17/25 10:02 . HPI Narrative: This 69-year-old male presents with a report of back pain which has been worsening since a fall that occurred 3 weeks ago. He states he slipped on ice landing directly on his buttock and has pain in his mid back that is radiating around. Denies any strength or sensation changes to his extremities he states he has had chronic chest pain that is not worse today. He denies any history of coagulopathy or head injury. He denies any fever or chills. The pain is much worse with any sort of movement or position change per patient. He does feel as though he is getting around his home safely but slowly. Does have a history of chronic pain related to his back secondary to self-reported scoliosis. Related Data Home Medications ?Medication ?Instructions ?Recorded ?Confirmed albuterol 90 mcg/actuation aerosol 90 mcg inhalation T ID PRN 01/03/21 07/17/25 inhaler furosemide 20 mg tablet 20 mg PO QAM 01/03/21 aluminum-mag hydroxide-simethicone 30 ml PO Q2H PRN PA N #0 mL 12/29/21 07/17/25 200 mg-200 mg-20 mg/5 mL oral susp (Mag-Al Plus) folic acid 1 mg tablet 1 mg PO DAILY #0 tabs 07/17/25 lactulose 20 gram/30 mL oral 15 g (22.5 mL) PO BID #0 mL 12/29/21 07/17/25 solution multivitamin (Multiple Vitamins 1 tab PO DAILY #0 tabs 12/29/21 07/17/25 tablet) thiamine mononitrate (vit B1) 100 100 mg PO DAILY #0 t abs 12/29/21 07/17/25 mg tablet (Vitamin B-1 (mononitrate)) aspirin 325 mg tablet 325 mg PO DAILY 03/01/2212/06 benztropine 1 mg tablet 1 mg PO .QHS 03/01/22 haloperidol 10 mg tablet 10 mg PO .QHS 03/01/2207/17 metoprolol succinate 50 mg 75 mg PO DAILY 03/01/2212/06 tablet,extended release 24 hr spironolactone 25 mg tablet 25 mg PO DAILY 03/01/22 cyclobenzaprine 10 mg tablet 10 mg PO HS PRN muscle sp asm #15 03/03/22 07/17/25 tabs Previous Rx's ?Medication ?Instructions ?Recorded aluminum-mag hydroxide-simethicone 30 ml PO Q2H PRN PA N #0 mL 12/29/21 200 mg-200 mg-20 mg/5 mL oral susp (Mag-Al Plus) folic acid 1 mg tablet 1 mg PO DAILY #0 tabs lactulose 20 gram/30 mL oral 15 g (22.5 mL) PO BID #0 mL 12/29/21 solution multivitamin (Multiple Vitamins 1 tab PO DAILY #0 tabs 12/29/21 tablet) thiamine mononitrate (vit B1) 100 100 mg PO DAILY #0 t abs 12/29/21 mg tablet (Vitamin B-1 (mononitrate)) cyclobenzaprine 10 mg tablet 10 mg PO HS PRN muscle sp asm #15 03/03/22 tabs Allergies Allergy/AdvReac Type Severity Reaction Status Date / Time Opioids - Morphine Analogues Allergy Severe Other (See Verified 07/18/25 08:19 Comment) General Stated Complaint: Nk/Back Pain CARMITA: 4 Exam Narrative Exam Narrative: Alert and oriented ornery 69-year-old male, tenderness with palpation of her thoracic spine, no visible sign of trauma, no CVA tenderness no abdominal tenderness cardiac rate rhythm regular, pulses intact all 4 extremities strength and sensation intact all 4 extremities GCS 15, no cervical spine tenderness Course Vital Signs Vital signs: Vital Signs Temperature 36.6 C 07/17/25 09:56 Pulse 76 07/17/25 09:56 Respiratory Rate 18 07/17/25 09:56 Blood Pressure 124/81 07/17/25 09:56 Pulse Oximetry 98 07/17/25 09:56 Temperature 36.6 C 07/17/25 09:56 Pulse 65 07/17/25 12:40 Pulse 65 07/17/25 12:40 Respiratory Rate 17 07/17/25 12:40 Blood Pressure 131/73 07/17/25 12:34 Blood Pressure Mean 88 07/17/25 12:34 Pulse Oximetry 98 07/17/25 12:40 Pain Level 8 07/17/25 09:56 Lab/Test Results Lab/Test Results: Laboratory Tests Range/Units 07/17/25 07/17/25 10:19 10:48 WBC (4.4-10.8) 10^3/uL 4.19 L RBC (4.36-5.78) 10^6/uL 4.82 Hgb (13.5-17.5) g/dL 14.9 Hct (40.0-50.0) % 45.4 MCV (80-95) fL 94 MCH (27.0-33.0) pg 30.9 MCHC (32.0-36.0) % 32.8 RDW (11.8-14.1) % 13.0 Plt Count (130-400) 10^3/uL 96 L MPV (8.0-11.0) fL 10.2 Immature Gran % % 0.2 Neutrophils % % 63.9 Lymphocytes % % 22.0 Monocytes % % 11.7 Eosinophils % % 1.7 Basophils % % 0.5 Nucleated RBC % (0.0-0.3) % 0.0 Absolute Neutrophils (1.2-6.7) 10^3/uL 2.68 Absolute Lymphocytes (1.2-3.4) 10^3/uL 0.92 L Absolute Monocytes (0.1-0.8) 10^3/uL 0.49 Absolute Eosinophils (0.0-0.7) 10^3/uL 0.07 Absolute Basophils (0.0-0.2) 10^3/uL 0.02 Sodium Cancelled 142 Potassium Cancelled 4.2 Chloride Cancelled 106 Carbon Dioxide Cancelled 32.1 H Anion Gap Cancelled 3.9 BUN Cancelled 14 Creatinine Cancelled 0.76 Est GFR (CKD-EPI 2020) Cancelled 101.18 Glucose Cancelled 82 Calcium Cancelled 8.9 Total Bilirubin Cancelled 0.70 AST Cancelled 32 ALT Cancelled 28 Alkaline Phosphatase Cancelled 143 H Troponin I (<54) ng/L < 3 Total Protein Cancelled 7.1 Albumin Cancelled 4.0 Lipase (<53) U/L 35 Medical Decision Making Results: Patient without acute abnormalities on CBC, CMP CT chest abdomen pelvis had been negative for acute abnormality per radiology interpretation my review, I discussed the case with the radiologist, Dr. Amado Assessment and plan: Patient presents in significant thoracic pain with radiation around to his abdomen. I did orders EKG, troponin, diagnostic workup for chest pain and trauma. Patient continued to pain complain of pain despite giving Valium 2.5 mg and was unable to tolerate CTs I did approximately an hour later order 4 mg of morphine IV. Unfortunately patient had hypotension associated with receiving the 4 mg of morphine. He also remained alert but was slow to respond. I initiated 0.2 of Narcan immediately and patient had good effect within 5 minutes of initiation. Blood pressure stabilized and patient was more responsive. He still had some pain control and was able to tolerate CT, we observed until he was stable. His airway remained intact throughout the encounter. Online User Experience Strategist from [facility] remained in room throughout the entirety of the encounter. Unfortunately after CT and labs jessica ent became very agitated and therefore could not have extended conversation regarding discharge planning. It sounds like patient does live independently but he does have daily help during weekdays. He was resumed for approximately 2 hours after adverse effect to morphine which potentially could have been related to polypharmacy and there was no rebound. At this time I think patient stable for discharge home. I gave him a single dose of oxycodone and he is instructed to not take this for at least 8 hours. I had this discussion with his child nutrition manager in the room. Return precautions reviewed and patient expressed understanding. [facility] All Active Problems (Updated 07/17/25 @ 13:52 by ANTIONETTE Evans) Onychomycosis (Acute) Accidental overdose (Acute) Fall (Acute) Back pain (Acute) Pathologic fracture of thoracic vertebrae (Acute) Degenerative disc disease, cervical (Acute) Lytic lesion of bone on x-ray (Acute) Pathological fracture of humerus (Acute) Suicidal ideation (Acute) Paranoid delusion (Acute) Anemia, iron deficiency (Acute) Closed right humeral fracture (Acute) Psychosis (Acute) Cholelithiasis (Chronic) Medical History Anemia Cirrhosis Hypothyroidism Pancytopenia Portal hypertension Schizophrenia Surgical History Surgical history unknown Family History Other Family history unobtainable due to patient's condition Social History Smoking/Tobacco Use Status: Former Tobacco Use Smoking risk assessment performed?: Yes Alcohol Intake: former Drug use: Rarely Substance use type: marijuana Details: unable to obtain due to patient condition. Additional Social history: unable to obtain due to patient condition.
[2025-07-17 14:04] LABS: Troponin I < 3 ng/L (<54)
[2025-07-17] MEDS: oxyCODONE 5 MG TAB PO (14:29)
== END 2025-07-17 14:32 | disposition home or self-care (01) ==
PROVIDERS: Emergency Provider Physician Assistant; PCP Internal Medicine
DX: M54.9 Dorsalgia, unspecified (principal); B35.1 Tinea unguium; T40.2X1A Poisoning by other opioids, accidental (unintentional), initial encounter; W19.XXXA Unspecified fall, initial encounter
CPT/HCPCS: 36415; 36416; 74177; 80053; 82962; 83690; 93005; 94640; 96365; 96366; 96375; 99285; 70450; 71260; 84484; 85025; 93010; J0131; J2270; J2312; J3360; J3490; J7620